=== PATIENT | male | born 1975 | race Caucasian/White ===

== ENCOUNTER → 2024-04-14 | Outpatient (CLI) | payer BC, SELFPAY ==
[2024-04-14 12:41] LABS: Absolute Lymphocyte Count 1.69 X10^3/uL (0.83-4.51); Absolute Neutrophil Count 4.6 X10^3/uL (2.0-7.7); Basophil# 0.04 X10^3/uL; Basophil% 0.6 % (0-1); Eosinophils% 1.4 % (0-5); Hematocrit 45.9 % (40-54); Hemoglobin 15.9 g/dL (13.0-16.5); Lymphocyte # 1.69 X10^3/ul (0.83-4.51); Lymphocyte % 24.2 % (19-41); Mean Corp Hgb Conc 34.6 g/dL (32-36); Mean Corpuscular Hgb 32.3 pg (27.0-32.0); Mean Corpuscular Volume 93.1 fL (80-94); Monocyte# 0.56 X10^3/uL; NRBC Flagged by Analyzer 0 % (0-5); Neutrophil # 4.57 X10^3/uL (2.7-7.7); Neutrophil % 65.5 % (47-70); Platelet Count 252 K/mm3 (150-450); RBC Distribution Width CV 11.9 % (11.6-14.6); RBC Distribution Width SD 41.1 fl (35.1-43.9); Red Blood Count 4.93 M/mm3 (4.6-6.2)
[2024-04-14 13:11] LABS: Vitamin B12 472 pg/mL (211-911); Vitamin D,25 Hydroxy 39.1 ng/mL
[2024-04-14 13:26] LABS: ALB/GLOB Ratio 1.5 RATIO (0.9-2.4); AST(SGOT) 18 U/L (15-37); Alanine Aminotransfer ALT/SGPT 38 U/L (16-61); Albumin, Serum 4.5 g/dL (3.2-5.0); Alkaline Phosphatase 67 U/L (45-117); Anion Gap 7 (5-15); BUN 10 mg/dL (7-18); BUN/Creat Ratio 10.3 RATIO (10-20); Calcium,Total 9.2 mg/dL (8.5-10.1); Chloride 107 mmol/L (98-107); Cholesterol 170 mg/dL (200); Creatinine, Serum 0.97 mg/dL (0.70-1.30); EST Glomerular Filtration Rate 87 mL/min (>60); Est Glom Filt Rate - Afr Amer 105 mL/min (>60); Globulin 3.1 g/dL (2.2-4.2); Glucose 99 mg/dL (74-106); High Density Lipoprotein 50 mg/dL; PSA,Total - Annual Screen 2.68 ng/mL (0.00-4.00); Potassium 4.1 mmol/L (3.5-5.1); Protein, Total 7.6 g/dL (6.4-8.2); Sodium Level 139 mmol/L (136-145); Thyroid Stim Hormone (TSH) 1.38 uIU/mL (0.358-3.74); Triglycerides 170 mg/dL; Very Low Density Lipoprotein 34 mg/dL (5-40)
== END | disposition home or self-care (01) ==
LOC: BIMLAB 10:26
PROVIDERS: PCP Internal Medicine; Referring Provider Internal Medicine; Visit Provider Internal Medicine
DX: R03.0 Elevated blood-pressure reading, without diagnosis of hypertension (principal); R20.0 Anesthesia of skin; R20.2 Paresthesia of skin; Z13.6 Encounter for screening for cardiovascular disorders; Z12.5 Encounter for screening for malignant neoplasm of prostate
CPT/HCPCS: 36415; 80053; 80061; 82306; 82607; 84153; 84443; 85025; G0103

== ENCOUNTER 2025-01-05 08:02 | Day surgery (SDC) | payer BC, SELFPAY ==
[2025-01-05] VITALS (9 sets, daily range): BP systolic 120–165; BP diastolic 86–92; PULSE 59–81; RESP 16–18; TEMP 36.8–37.3; O2SAT 93–100; BMI 27.9
--- NOTE | 2025-01-05 | COLBX_PTH ---
PATIENT: DEL WIGGINS LOC: EN U#:[id number] AGE/SX: 49/M ROOM: RE01/05/[address]: Dr. Mak Lombardi MD : 1975 BED: DIS: 01/05/2025 SPEC #: [id number] RECD: 01/05/25 12:30 STATUS: JOSS REQ #: [id number] KEYSHA: 01/05/25 00:[address]: Mak Lombardi DEPT: SURGICAL PATHOLOGY RECD BY: Terry Clarke ENTERED: 01/05/25 12:31 SP TYPE: COLON BX OTHR DR: Dr. Marika Josue MD Tissues: Cecum, NOS Procedures: Surgery Specimen Level IV HEADER OPERATION: Colonoscopy with biopsy PRE-OP DIAGNOSIS: Encounter for screening for malignant neoplasm of colon TISSUE SUBMITTED: Cecal polyp MICROSCOPIC DIAGNOSIS COLON, CECAL POLYP, BIOPSY: * Tubular adenenoma. MICROSCOPIC DESCRIPTION Slides are reviewed. GROSS DESCRIPTION Received in fixative is one container labeled with the patient's name and designated Cecal polyp. The specimen consists of one irregular fragment of light rojas soft tissue that measures 0.5 x 0.3 x 0.2 cm. The specimen is totally submitted in one cassette. 01/05/2025 CPT:37264
--- NOTE | 2025-01-05 08:49 | PRE.ANES_ITS ---
ASA Classification* ASA Classification ASA Classification: 2 Assessment & Plan Anesthesia* Anesthesia Assessment Anesthesia Assessment: Discussed sedation and/or anesthesia options, risks, benefits, and alternatives with patient/parents/legal guardian/POA. Questions invited. The patient/parents/legal guardian/POA seems to understand and agrees to proceed with anesthesia plan. Reviewed the physical assessment, medical history, allergy history and patient home medications list prior to surgery/procedure/anesthetic and documented any changes. Performed airway and anesthesia risk assessments. Anesthesia Type Anesthesia Type: General History Source History Obtained from:: Patient Anesthesia Focused Assessment* Temperature: 99.2 F Pulse Rate: 81 Blood Pressure: 165/92 Respiratory Rate: 16 Pulse Ox: 100 Oxygen Delivery Method: Room Air Airway Assessment Mouth opens: >3 cm Mallampati Score: II Teeth Condition: Chipped/Broken and Missing Neck Range of motion (ROM): Full ROM Comment: poor dentition Focused Labs Anesthesia Preop lab: CBC WBC 7.0 K/mm3 (4.4-11.0) 04/14/24 10:04/14/24 RBC 4.93 M/mm3 (4.6-6.2) 04/14/24 10:04/14/24 Hgb 15.9 g/dL (13.0-16.5) 04/14/24 10:04/14/24 Hct 45.9 % (40-54) 04/14/24 10:04/14/24 Plt Count 252 K/mm3 (150-450) 04/14/24 10:04/14/24 CHEMISTRY Potassium 4.1 mmol/L (3.5-5.1) 04/14/24 10:04/14/24 Sodium 139 mmol/L (136-145) 04/14/24 10:04/14/24 BUN 10 mg/dL (7-18) 04/14/24 10:04/14/24 Creatinine 0.97 mg/dL (0.70-1.30) 04/14/24 10:04/14/24 Glucose 99 mg/dL (74-106) 04/14/24 10:04/14/24 TSH 1.38 uIU/mL (0.358-3.74) 04/14/24 10: COAG Pre-Assessment Diagnosis/Proposed Procedure Planned Operative Procedure(s): Colonoscopy - Open Access Anesthesia History 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 When Was Last Pacemaker Check QUESTION #4 FULL TEXT: You/Your Family Experience fever (hyperthermia) with Anesthesia Any additional information?: No Last Oral Intake Last Oral intake: Last Oral Intake NPO since 06:00 01/05/25 08:25 Meds taken in AM with sips of Yes 01/05/25 08:25 water? 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 supervisor Female No 01/01/25 10:43 HX of Motion Sickness No 01/01/25 10:43 HX of N/V After Surgery No 01/01/25 10:43 Non-Smoker Yes 01/01/25 10:43 Duration of Surgery greater No 01/01/25 10:43 than 60 minutes Number of Risk Factors 1 01/01/25 10:43 PONV Score Low Risk 01/01/25 10:43 Any additional information?: No Height & Weight Height & Weight: Anesthesia: Height & Weight Height 5 ft 11 in 01/05/25 08:25 Weight: 91 kg 01/05/25 08:25 Body Mass Index (BMI) 27.9 01/05/25 08:25 Respiratory Assessment Respiratory Assessment - track laying supervisor: Respiratory Tract Infection Hx - track laying supervisor Hx Respiratory Tract Infection No 01/01/25 10:43 Any additional information?: No STOP Sleep Apnea STOP Sleep Apnea - track laying supervisor: STOP Sleep Apnea - track laying supervisor Hx Hypertension Yes: CONTROLLED ON MED 01/01/25 10:43 Hx Sleep Apnea No 01/01/25 10:43 CPAP BIPAP Do you snore loudly (louder No 01/01/25 10:43 than talking or can be heard Do you often feel tired/ No 01/01/25 10:43 fatigued/ sleepy during daytime? Has anyone observed you stop No 01/01/25 10:43 breathing during sleep? STOP Results Negative 01/01/25 10:43 QUESTION #5 FULL TEXT : Do you snore loudly (louder than talking or can be heard through closed doors)? 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 Specify any problems Hx of Preganancy in last 3 N/A 01/01/25 10:43 Months Nurse Filling Out Transfusion VCHRISTIN 01/01/25 10:43 & Questions: Date: 01/01/25 01/01/25 10:43 Time: 10:44 01/01/25 10:43 Patient unable to answer at this time (ie. confused, unrespo Any additional information?: No /Reproduction History /Reproductive History - track laying supervisor: /Reproductive Hx- track laying supervisor Hx Now Gestational Age (in weeks): EDC: Hx Hx Para Hx Section SAB Any additional information?: No PFSH Medical History Alcohol use Arthritis Back pain Gastric reflux Smoker Hypertension Acute bacterial prostatitis Kidney stones GI problem Bone fracture Home Medications ?Medication ?Instructions ?Recorded ?Last Taken ?Type omeprazole 20 mg capsule,delayed 20 mg PO QDAY 5 01/04/25 History release amlodipine 5 mg tablet 5 mg PO QDAY #90 tabs 01/05/25 Rx Allergy/AdvReac Type Severity Reaction Status Date / Time lisinopril AdvReac Ears Verified 01/05/25 08:21 Ringing, Hearing disturbance Family History Father Alcohol abuse Arthritis Hypertension Mother Alcohol abuse Sister Cancer, Onset Age: 48 brain tumor Surgical History (Updated 01/01/25 @ 10:43 by Laury Lopez) Hx of colonoscopy Social History adopted: No household members: significant other current occupational status: 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 Physical Exam Const alert and oriented x3 Resp normal respiratory effort, normal air movement and clear to auscultation bilaterally Cardio regular rate, regular rhythm, no murmurs and diaphoretic
--- NOTE | 2025-01-05 09:16 | PCM.HP.STD ---
[facility] - General General Date of Admission: 01/05/25 Date of Service: 01/05/25 Chief Complaint: Colonoscopy HPI Narrative DEL WIGGINS, is a 49 M who presents for screening colonoscopy. Last colonoscopy was about 6 years ago. At that time he was having some diarrhea and was diagnosed with microscopic colitis. He was placed on steroids and the symptoms resolved. He denies any recent symptoms or problems. No family history of colon polyps or colon cancer. [facility] Medical History Alcohol use Arthritis Back pain Gastric reflux Smoker Hypertension Acute bacterial prostatitis Kidney stones GI problem Bone fracture Home Medications ?Medication ?Instructions ?Recorded ?Last Taken ?Type omeprazole 20 mg capsule,delayed 20 mg PO QDAY 11/19/24 01/04/25 History release amlodipine 5 mg tablet 5 mg PO QDAY #90 tabs 01/04/25 01/05/25 Rx Allergy/AdvReac Type Severity Reaction Status Date / Time lisinopril AdvReac Ears Verified 01/05/25 08:21 Ringing, Hearing disturbance Family History Father Alcohol abuse Arthritis Hypertension Mother Alcohol abuse Sister Cancer, Onset Age: 48 brain tumor Surgical History Hx of colonoscopy Social History adopted: No household members: significant other current occupational status: 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 history of recent travel: No Smoking Status: Current every day smoker tobacco type: cigarettes and smokeless tobacco Smokeless tobacco user: chewing tobacco quit status: considering quitting alcohol intake: current alcohol intake frequency: 3 or more drinks per day details: 2-6 beer daily substance use type: does not use what type of physical activity do you participate in: none seatbelt use: always do you feel safe at home: Yes Vital Signs Vital Signs Vital Signs: 01/05/25 08:25 01/05/25 08:25 01/05/25 08:53 Temperature 99.2 F H 99.2 F H Temperature Source Temporal Pulse Rate 81 81 Respiratory Rate 16 16 Respiratory Pattern Normal Blood Pressure 165/92 H 165/92 H Blood Pressure Mean 116 Blood Pressure Source Monitor Blood Pressure Position Semi-Fowlers Blood Pressure Location Right Arm Pulse Ox 100 100 Oxygen Delivery Method Room Air Room Air Weight Weight: 200 lb 9.93 oz Body Mass Index (BMI) 27.9 Physical Exam Const alert, oriented x3 and no apparent distress Assessment & Plan Assessment/Plan (1) Encounter for screening for malignant neoplasm of colon: PLAN: Plan The patient is a 49-year-old male in need of a screening colonoscopy. His last colonoscopy was about 6 years ago. We discussed the details of the planned procedure and he wishes to proceed. This will begin momentarily Charges/Coding Visit Charges Inpatient E&M: 05322 Init Hosp L1
--- NOTE | 2025-01-05 10:02 | OP.COLON_ITS ---
Patient Name: Sonny Souza Procedure Date: 01/05/2025 9:09 AM Date of : 1975 Age: 49 Procedure: Colonoscopy Indications: Screening for colorectal malignant neoplasm Providers: Mak Lombardi MD Medicines: Monitored Anesthesia Care Patient Profile: Refer to note in patient chart for documentation of history and physical. Last Colonoscopy: 5 years ago. Complications: No immediate complications. Estimated blood loss: Minimal. Procedure: Pre-Anesthesia Assessment: - Prior to the procedure, a History and Physical was performed, and patient medications and allergies were reviewed. The patient's tolerance of previous anesthesia was also reviewed. The risks and benefits of the procedure and the sedation options and risks were discussed with the patient. All questions were answered, and informed consent was obtained. Prior Anticoagulants: The patient has taken no anticoagulant or antiplatelet agents. ASA Grade Assessment: II - A patient with mild systemic disease. After reviewing the risks and benefits, the patient was deemed in satisfactory condition to undergo the procedure. After I obtained informed consent, the scope was passed under direct vision. Throughout the procedure, the patient's blood pressure, pulse, and oxygen saturations were monitored continuously. The colonoscope was introduced through the anus and advanced to the cecum, identified by appendiceal orifice and ileocecal valve. The ileocecal valve, appendiceal orifice, and rectum were photographed. The entire colon was examined. The colonoscopy was somewhat difficult due to significant looping. Successful completion of the procedure was aided by changing the patient to a supine position. The patient tolerated the procedure well. The quality of the bowel preparation was fair. Moderate Sedation: See the other procedure note for documentation of moderate sedation with intraservice time. Scope In: 9:28:40 AM Scope Withdrawal Time 0 hours 7 minutes 30 seconds Scope Out: 9:55:56 AM Total Procedure Duration Time 0 hours 27 minutes 16 seconds Findings: The perianal and digital rectal examinations were normal. Internal hemorrhoids were found during endoscopy. The hemorrhoids were mild. The exam was otherwise without abnormality. A 3 mm polyp was found in the cecum. The polyp was semi-sessile. The polyp was removed with a cold biopsy forceps. Resection and retrieval were complete. Verification of patient identification for the specimen was done by the nurse using the patient's name, date and medical record number. Estimated blood loss was minimal. Impression: - Preparation of the colon was fair. - Internal hemorrhoids. - The examination was otherwise normal. - One 3 mm polyp in the cecum, removed with a cold biopsy forceps. Resected and retrieved. Recommendation: - Discharge patient to home (ambulatory). - High fiber diet. - Await pathology results. - Repeat colonoscopy in 5 years for surveillance based on pathology results. - Return to my office PRN. - Continue present medications. Procedure Code(s): --- Professional --- 98033, Colonoscopy, flexible; with biopsy, single or multiple Diagnosis Code(s): --- Professional --- Z12.11, Encounter for screening for malignant neoplasm of colon D12.0, Benign neoplasm of cecum K64.8, Other hemorrhoids CPT copyright 2021 [employer]. All rights reserved. The codes documented in this report are preliminary and upon digital marketing specialist review may be revised to meet current compliance requirements. Mak Lombardi MD 01/05/2025 10:02:16 AM This report has been signed electronically. Number of Addenda: 0 Note Initiated On: 01/05/2025 9:09 AM
--- NOTE | 2025-01-05 10:03 | OP.CCLET_ITS ---
01/05/2025 Marika Josue Md Re : Colonoscopy procedure for Sonny Souza Dear Liat This procedure was performed on Sunday, January 05, 2025. My impressions and recommendations are as follows: Impressions : - Preparation of the colon was fair. - Internal hemorrhoids. - The examination was otherwise normal. - One 3 mm polyp in the cecum, removed with a cold biopsy forceps. Resected and retrieved. Recommendations : - Discharge patient to home (ambulatory). - High fiber diet. - Await pathology results. - Repeat colonoscopy in 5 years for surveillance based on pathology results. - Return to my office PRN. - Continue present medications. My findings are described in the full procedure note, which is enclosed. If I can be of further assistance, please feel free to contact me at . Sincerely, Mak Lombardi MD 01/05/2025 10:02:16 AM This report has been signed electronically.
--- NOTE | 2025-01-05 10:05 | PCM.POST.ANE ---
Anesthesia: Postop Eval I Current Vital Signs Temperature: 98.2 F Pulse Rate: 63 Blood Pressure: 131/89 Respiratory Rate: 16 Pulse Ox: 93 Oxygen Delivery Method: Room Air Assessment Airway patent: Yes Spontaneous unlabored respirations: Yes Mental status: Asleep nausea: No Vomiting: No Anesthesia Complication: No Fluid Hydration Crystalloid volume administer (ml): 90 Total IV fluid infused: 90 Progress Note Anesthesia document: Postop Eval 1 completed: Yes
--- NOTE | 2025-01-05 10:10 | PCM.POSTANE2 ---
Anesthesia Postop Eval I Sum Postop Eval Completion status Anesthesia document: Postop Eval 1 completed: Yes Anesthesia Postop Eval I Summary Anesthesia Postop Eval I Summary: Anesthesia Postop Eval I: Assessment Summary Airway patent Yes 01/05/25 10:06 [email or web address] Spontaneous unlabored Yes 01/05/25 10:06 [email or web address] respirations Mental status Asleep 01/05/25 10:06 [email or web address] nausea No 01/05/25 10:06 [email or web address] Vomiting No 01/05/25 10:06 [email or web address] Anesthesia Postop Eval I: Fluid Summary Crystalloid volume administer 90 01/05/25 10:06 [email or web address] (ml) Colloids volume administered ( ml) Blood Product volume administered (ml) Total IV fluid infused 90 01/05/25 10:06 [email or web address] Anesthesia Postop Eval I: Summary Notes Anesthesia Complication No 01/05/25 10:06 [email or web address] Anesthesia Complication Comment: Post-operative progress note Anesthesia: Postop Eval II Evaluation Mental status: Awake and Calm Pain Level: 0 nausea: No Vomiting: No Complications Anesthesia Complication: No
== END 2025-01-05 10:39 | disposition home or self-care (01) ==
LOC: EN 08:05 → AC 08:06
PROVIDERS: PCP Internal Medicine; Referring Provider Internal Medicine; Visit Provider Surgery
PROC: 0DJD8ZZ Inspection of Lower Intestinal Tract, Via Natural or Artificial Opening Endoscopic (ICD-10-PCS; CPT 45378; principal; 2025-01-05 08:55)
DX: Z12.11 Encounter for screening for malignant neoplasm of colon (principal); K64.8 Other hemorrhoids; D12.0 Benign neoplasm of cecum; F17.210 Nicotine dependence, cigarettes, uncomplicated; I10 Essential (primary) hypertension; K21.9 Gastro-esophageal reflux disease without esophagitis; Z79.899 Other long term (current) drug therapy; F17.220 Nicotine dependence, chewing tobacco, uncomplicated
CPT/HCPCS: 45380; 88305; A4216; J2405

== ENCOUNTER → 2025-05-06 | Outpatient (CLI) | payer BC, SELFPAY ==
[2025-05-06 12:05] LABS: Hematocrit 42.4 % (40-54); Hemoglobin 15.0 g/dL (13.0-16.5); Immature Granulocytes Count 0.020 X10^3/uL (0.0-0.0); Mean Corp Hgb Conc 35.4 g/dL (32-36); Mean Corpuscular Volume 90.2 fL (80-94); Mean Platelet Vol. 9.5 fl (6.2-12.0); NRBC Flagged by Analyzer 0 % (0-5); POSITIVE MORPHOLOGY YES; Platelet Count 272 K/mm3 (150-450); RBC Distribution Width CV 11.4 % (11.6-14.6); RBC Distribution Width SD 37.9 fl (35.1-43.9); Red Blood Count 4.70 M/mm3 (4.6-6.2); White Blood Count 6.5 K/mm3 (4.4-11.0)
[2025-05-06 12:21] LABS: Differential Indicated SCAN CRITERIA MET
[2025-05-06 12:42] LABS: AST(SGOT) 19 U/L (<=37); Alanine Aminotransfer ALT/SGPT 23 U/L (<=46); Albumin, Serum 4.7 g/dL (3.5-5.0); Alkaline Phosphatase 74 U/L (40-129); Anion Gap 11 (5-15); BUN 10 mg/dL (4-19); BUN/Creat Ratio 9.8 RATIO (10-20); Calcium,Total 9.4 mg/dL (7.6-11.0); Carbon Dioxide 27.1 mmol/L (21.0-32.0); Chloride 104 mmol/L (98-108); Cholesterol 140 mg/dL (<=200); Globulin 2.5 g/dL (2.2-4.2); Glucose 93 mg/dL (70-99); Low Density Lipoprotein Calc. 79 mg/dL; Potassium 3.8 mmol/L (3.3-5.1); Triglycerides 86 mg/dL; Very Low Density Lipoprotein 17 mg/dL (5-40); cholesterol:hdl ratio screen 3.19
[2025-05-06 12:59] LABS: Differential Comment SCANNED
== END | disposition home or self-care (01) ==
LOC: BIMLAB 09:10
PROVIDERS: PCP Internal Medicine; Visit Provider Internal Medicine
DX: Z13.6 Encounter for screening for cardiovascular disorders (principal); I10 Essential (primary) hypertension; K21.9 Gastro-esophageal reflux disease without esophagitis
CPT/HCPCS: 36415; 80053; 80061; 85025

== ENCOUNTER → 2025-06-02 | Outpatient (CLI) | payer BC, SELFPAY ==
--- OUTSIDE RECORDS SUMMARY | 2025-06-02 06:44 | XMS RPT_ITS | CCD ---
Author Organization [facility] Care Team Providers Care Social Welfare Research Worker Name Role Phone [facility] Unavailable Unavailable [facility] Unavailable Unavailable NO REFERRING DR Unavailable Unavailable Liat CRUZ, Dr. Hairston Primary Care Provider [phone] Anjelica Lo Attending Provider Unavailable Lait CRUZ, Dr. Hairston Attending Provider Dr. Marika Josue MD Referring Provider Maria C CRUZ, Dr. Mak Veras Attending Provider Maria C CRUZ, Dr. Mak Veras Other Provider [phone] Liat CRUZ, Dr. Hairston Primary Care Provider [phone] Liat CRUZ, Dr. Hairston Attending Provider Liat CRUZ, Dr. Hairston Referring Provider Mak Lombardi Attending Unavailable Liat, Marika Referring Unavailable [place], Marika Primary Care Unavailable [place], Marika Attending Unavailable Liat, Marika Primary Care Unavailable [place], Marika Attending Unavailable Liat, Marika Referring Unavailable [place], Marika Primary Care Unavailable [place], Marika Attending Unavailable [place], Marika Referring Unavailable Liat, Marika Primary Care Unavailable Liat, Marika Attending Unavailable Liat, Marika Referring Unavailable Liat, Marika Primary Care Unavailable Anjelica Lo Attending Unavailable [place], Marika Primary Care Unavailable Liat, Marika Referring Unavailable [place], Marika Primary Care Unavailable Mak Lombardi Consulting Unavailable Mak Lombardi Attending Unavailable Liat, Marika Attending Unavailable Liat, Marika Referring Unavailable Marika Josue Primary Care Unavailable Allergies Allergy Classification Reported Allergen(s) Allergy Type Date of Onset Reaction(s) Facility (3 sources) Lisinopril Drug Allergy 5 Ears Ringing, Hearing disturbance [facility] (1 source) Lisinopril Drug Allergy 5 [facility] Repository Medications Completed/Discontinued Medications Medication Drug Class(es) Dates Sig (Normalized) Sig (Original) amLODIPine 5 mg oral tablet (8 sources) Dihydropyridine Calcium Channel Adiel Start: 12-08-19 End: 03-23-20 take 1 tablet by mouth once daily Amlodipine 5 mg tablet Discontinued 5 mg PO daily 90 0 January 04, 2025 10:44am March 23, 2025 9:11am amoxicillin 875 mg / clavulanate 125 mg oral tablet (3 sources) Penicillin-class Antibacterial Start: 02-13-20 End: 02-23-20 Amoxicillin-Pot Clavulanate 875-125 mg tablet Discontinued 1 {tbl} PO Q12H 20 10 February 13, 2024 12:00am February 22, 2024 12:00am February 23, 2024 12:05am Acute sinusitis, unspecified lisinopril 5 mg oral tablet (3 sources) Angiotensin Converting Enzyme Inhibitor Start: 04-27-20 End: 11-19-19 take 1 tablet by mouth once daily Lisinopril 5 mg tablet Discontinued 5 mg PO DAILY 30 1 April 27, 2024 12:00am November 19, 2024 11:52am methylPREDNISolone 4 mg oral tablet (3 sources) Corticosteroid Start: 02-13-20 End: 02-19-20 24 take 1 tablet by mouth once Methylprednisolone (Medrol (Carlo)) 4 mg tablets,dose pack Discontinued 4 mg PO per package directions 21 6 0 February 13, 2024 12:00am February 18, 2024 12:00am February 19, 2024 12:05am omeprazole 20 mg delayed release oral capsule (3 sources) Proton Pump Inhibitor Start: 11-19-19 End: 05-06-20 take 1 capsule by mouth once daily Omeprazole 20 mg capsule,delayed release(DR/EC) Discontinued 20 mg PO daily November 19, 2024 1:00am May 06, 2025 8:54am Problems Active Problems Problem Classification Problem Date Documented Date Episodic/Chronic Esophageal disorders (4 sources) Gastroesophageal reflux disease; Translations: [Gastro-esophageal reflux disease without esophagitis] Onset: 05-06-2025 12-08-2024 Chronic Essential hypertension (8 sources) Hypertensive disorder; Translations: [Essential (primary) hypertension] Onset: 05-06-2025 12-22-2024 Chronic Immunizations and screening for infectious disease (1 source) Immunization due; Translations: [Encounter for immunization] 12-08-2024 Episodic Nonspecific chest pain (1 source) Chest pain; Translations: [Chest pain, unspecified] 12-08-2024 Episodic Other connective tissue disease (1 source) Disease suspected; Translations: [Other symptoms and signs involving the nervous system] 12-08-2024 Episodic Other connective tissue disease (2 sources) Suspected respiratory disease; Translations: [Other symptoms and signs involving the nervous system] 05-06-2025 Episodic Other nervous system disorders (2 sources) Numbness and tingling sensation of skin; Translations: [Anesthesia of skin] 05-06-2025 Episodic Other nervous system disorders (2 sources) Anesthesia of skin; Translations: [Anesthesia of skin] Onset: 05-06-2025 Episodic Other nervous system disorders (2 sources) Paresthesia of skin; Translations: [Paresthesia of skin] Onset: 05-06-2025 Episodic Other screening for suspected conditions (not mental disorders or infectious disease) (10 sources) Patient encounter status; Translations: [Encounter for screening for malignant neoplasm of colon] Onset: 01-12-2025 11-19-2024 Episodic Other upper respiratory infections (3 sources) Acute sinusitis; Translations: [Acute sinusitis, unspecified] 04-13-2024 Episodic Screening and history of mental health and substance abuse codes (1 source) Ex-smoker; Translations: [Personal history of nicotine dependence] 05-06-2025 Episodic Spondylosis; intervertebral disc disorders; other back problems (7 sources) Back problem; Translations: [Dorsopathy, unspecified] Onset: 05-06-2025 04-14-2024 Episodic Substance-related disorders (3 sources) Cigarette smoker ; Translations: [Nicotine dependence, cigarettes, uncomplicated] 12-08-2024 Chronic Past or Other Problems Problem Classification Problem Date Documented Da te Episodic/Chronic Other gastrointestinal disorders (3 sources) Diarrhea, unspecified; Translations: [DIARRHEA UNSPECIFIED] Onset: 09-11-2016 Episodic Results Test Name Value Interpretation Reference Range Facility Absolute lymphocyte countOrd ered By: Marika Josue on 05-06-2025 Lymphocytes Auto (Unsp spec) [#/Vol] 2.32 10*3/uL 0.83-4.51 [facility] Absolute neutrophil countOrd ered By: Marika Josue on 05-06-2025 Neutrophils (Bld) [#/Vol] 3.5 10*3/uL 2.0-7.7 [facility] Anion gap in Serum or Plasma Ordered By: Marika Josue on 05-06-2025 Anion gap [Moles/Vol] 11 mmol/L - [facility] Automated lymphocyte count a s percentage of total leukocytesOrdered By: Marika Josue on 05-06-2025 Lymphocytes/100 WBC Auto (Unsp spec) 35.8 % - [facility] BUN/creatinine ratioOrdered By: Marika Josue on 05-06-2025 Urea nitrogen/Creatinine [Mass ratio] 9.8 mg/mg Low 10- [facility] Basophil percentageOrdered B y: Mariak Josue on 05-06-2025 Basophils/100 WBC (Bld) 0.6 % 0- [facility] Bilirubin, totalOrdered By: Marika Josue on 05-06-2025 Bilirubin [Mass/Vol] 0.38 mg/dL 0.00-1.30 [facility] Blood manual differential co mment interpretation (narrative result)Ordered By: Marika Josue on 05-06-2025 Manual differential comment Jed (Bld) [Interp] SCANNED [facility] Comment on above: AUTO DIFF OK CBC W/Diff, Automatedon 04-27 SMEAR COMMENT SCANNED Normal [facility] Comment on above: Result Comment: AUTO DIFF OK Performed By: #### L 100.0100, L500.4100, L500.4050 #### [facility] [address] [place], [place] [address]tiffanie. [place], [place], [id number] Calculated very low density lipoprotein (VLDL) cholesterol measurementOrdered By: Marika Josue on 05-06-2025 Calculated very low density lipoprotein (VLDL) cholesterol measurement 17 mg/dL 5-40 [facility] Carbon dioxide, total [Moles /volume] in Central venous bloodOrdered By: Marika Josue on 05-06-2025 CO2 [Moles/Vol] 27.1 mmol/L 21.0-32.0 [facility] Chloride assayOrdered By: [place] Josue on 05-06-2025 Chloride [Moles/Vol] 104 mmol/L 98-108 [facility] Comprehensive Metabolic Prof ilon 05-06-2025 Albumin [Mass/Vol] 4.7 g/dL Normal 3.5-5.0 [facility] Comment on above: Performed By: #### L 100.0100, L500.4100, L500.4050 #### [facility] [address] [place], [address] Albumin/Globulin [Mass ratio] 1.9 {ratio} Normal 0.9-2.4 [facility] Comment on above: Performed By: #### L 100.0100, L500.4100, L500.4050 #### [facility] [address] [place], [address] ALK PHOS 74 U/L Normal 40-129 [facility] Comment on above: Performed By: #### L 100.0100, L500.4100, L500.4050 #### [facility] [address] [place], [address] ALT [Catalytic activity/Vol] 23 U/L Normal <=46 [facility] Comment on above: Performed By: #### L 100.0100, L500.4100, L500.4050 #### [facility] [address] [place], [address] AST [Catalytic activity/Vol] 19 U/L Normal <=37 [facility] Comment on above: Performed By: #### L 100.0100, L500.4100, L500.4050 #### [facility] [address] [place], [address] Bilirubin [Mass/Vol] 0.38 mg/dL Normal 0.00-1.30 [facility] Comment on above: Performed By: #### L 100.0100, L500.4100, L500.4050 #### [facility] [address] [place], [address] BUN/CRE 9.8 RATIO Low 10-20 [facility] Comment on above: Performed By: #### L 100.0100, L500.4100, L500.4050 #### [facility] [address] [place], [address] Calcium [Mass/Vol] 9.4 mg/dL Normal 7.6-11.0 [facility] Comment on above: Performed By: #### L 100.0100, L500.4100, L500.4050 #### [facility] [address] [place], [address] Chloride [Moles/Vol] 104 mmol/L Normal 98-108 [facility] Comment on above: Performed By: #### L 100.0100, L500.4100, L500.4050 #### [facility] [address] [place], [address] CO2 [Moles/Vol] 27.1 mmol/L Normal 21.0-32.0 [facility] Comment on above: Performed By: #### L 100.0100, L500.4100, L500.4050 #### [facility] [address] [place], [address] Creatinine [Mass/Vol] 1.03 mg/dL Normal 0.70-1.20 [facility] Comment on above: Performed By: #### L 100.0100, L500.4100, L500.4050 #### [facility] [address] [place], [address] GAP 11 Normal 5-15 [facility] Comment on above: Performed By: #### L 100.0100, L500.4100, L500.4050 #### [facility] [address] [place], [address] GFR/1.73 sq M.predicted among non-blacks MDRD (S/P/Bld) [Vol rate/Area] 88 mL/min/{1.73_m2} Normal >60 [facility] Comment on above: Result Comment: mL/m in/1.73m2 CKD-EPI Creatinine Equation (2020) Performed By: #### L 100.0100, L500.4100, L500.4050 #### [facility] [address] [place], [address] Globulin (S) [Mass/Vol] 2.5 g/dL Normal 2.2-4.2 [facility] Comment on above: Performed By: #### L 100.0100, L500.4100, L500.4050 #### [facility] [address] [place], [address] Glucose [Mass/Vol] 93 mg/dL Normal 70-99 [facility] Comment on above: Performed By: #### L 100.0100, L500.4100, L500.4050 #### [facility] [address] [place], [address] Potassium [Moles/Vol] 3.8 mmol/L Normal 3.3-5.1 [facility] Comment on above: Performed By: #### L 100.0100, L500.4100, L500.4050 #### [facility] [address] [place], [address] Sodium [Moles/Vol] 142 mmol/L Normal 133-145 [facility] Comment on above: Performed By: #### L 100.0100, L500.4100, L500.4050 #### [facility] [address] [place], [address] T PROT 7.3 g/dL Normal 5.9-8.4 [facility] Comment on above: Performed By: #### L 100.0100, L500.4100, L500.4050 #### [facility] [address] [place], [address] Urea nitrogen [Mass/Vol] 10 mg/dL Normal 4-19 [facility] Comment on above: Performed By: #### L 100.0100, L500.4100, L500.4050 #### [facility] [address] [place], [address] Eosinophil percentageOrdered By: Marika Josue on 05-06-2025 Eosinophils/100 WBC (Bld) 2.3 % 0-5 [facility] Erythrocyte distribution wid th ratioOrdered By: Marika Josue on 05-06-2025 Erythrocyte distribution width (RBC) [Ratio] 11.4 % Low 11.6-14.6 [facility] Erythrocyte distribution wid th standard deviationOrdered By: Marika Josue on 05-06-2025 Erythrocyte distribution width (RBC) [Ratio] 37.9 fl 35.1-43.9 [facility] Glomerular filtration rate ( GFR) estimation/1.73 sq m using serum, plasma, or whole bOrdered By: Marika Josue on 05-06-2025 GFR/1.73 sq M.predicted among non-blacks MDRD (S/P/Bld) [Vol rate/Area] 88 mL/min/{1.73_m2} >60 [facility] Comment on above: mL/min/1.73m2 CKD-EP I Creatinine Equation (2020) Hematocrit Auto (Bld) [Volum e fraction]Ordered By: Marika Josue on 05-06-2025 Hematocrit (Bld) [Volume fraction] 42.4 % 40-54 [facility] Hemoglobin measurementOrdere d By: Marika Josue on 05-06-2025 Hemoglobin (Bld) [Mass/Vol] 15.0 g/dL 13.0-16.5 [facility] Immature granulocytes/100 WB C Auto (Bld)Ordered By: Marika Josue on 05-06-2025 Immature granulocytes/100 WBC (Bld) 0.300 % 0.0-0.9 [facility] Comment on above: IG% - Immature Granu locytes (promyelocytes, myelocytes and metamyelocytes) > 1% indicates that a LEFT SHIFT is Present. LDL calc ser/plasOrdered By: Marika Josue on 05-06-2025 Cholesterol in LDL [Mass/Vol] 79 mg/dL [facility] Comment on above: Zrydymltgb=198-965 m g/dL & Higher Bqhn=905 mg/dL or greater Laboratory - Chemistry and C hemistry - challengeOrdered By: Marika Josue on 05-06-2025 AST [Catalytic activity/Vol] 19 U/L <38 [facility] Lipid Profileon 05-06-2025 CHOL:HDL 3.19 Normal [facility] Comment on above: Performed By: #### L 100.0100, L500.4100, L500.4050 ####[facility] [address] [facility] [place], [place], [id number](136) Cholesterol [Mass/Vol] 140 mg/dL Normal <=200 [facility] Comment on above: Result Comment: Chol esterol level, Desirable <200 mg/dL Borderline high cholesterol 200-239 mg/dL High cholesterol >=240 mg/dL Recommendations of the NCEP Adult Treatment Panel for the following risk-cutoff thresholds for the [place] population. Performed By: #### L 100.0100, L500.4100, L500.4050 ####[facility] [address] [facility] [place], [address] Cholesterol in HDL [Mass/Vol] 44 mg/dL Normal [facility] Comment on above: Result Comment: Leora onal Cholesterol Education Program (NCEP) guidelines: <40 mg/dL: Low HDL-cholesterol (major risk factor for CHD) >= 60 mg/dL: High HDL-cholesterol (negative risk factor for CHD) HDL-cholesterol is affected by a number of factors, e.g. smoking, exercise, hormones, sex and age. Performed By: #### L 100.0100, L500.4100, L500.4050 ####[facility] [address] [place], [address] Cholesterol in LDL [Mass/Vol] 79 mg/dL Normal [facility] Comment on above: Result Comment: Bord jmcltk=139-253 mg/dL Higher Wkbr=272 mg/dL or greater Performed By: #### L 100.0100, L500.4100, L500.4050 ####[facility] [address] [place], [address] Cholesterol in VLDL [Mass/Vol] 17 mg/dL Normal 5-40 [facility] Comment on above: Performed By: #### L 100.0100, L500.4100, L500.4050 ####[facility] [address] [place], [address] Triglyceride [Mass/Vol] 86 mg/dL Normal [facility] Comment on above: Result Comment: The drugs N-Acetylcysteine and Metamizole may falsely depress this assay. Normal range: <150 mg/dL Borderline High: 150-199 mg/dL High: 200-499 mg/dL Very High: >500 mg/dL Performed By: #### L 100.0100, L500.4100, L500.4050 ####[facility] [address] [place], [address] MCV (mean corpuscular volume ) determinationOrdered By: Marika Josue on 05-06-2025 MCV (RBC) [Entitic vol] 90.2 fL 80-94 [facility] Mean corpuscular hemoglobin (MCH) determinationOrdered By: Marika Liat on 05-06-2025 MCH (RBC) [Entitic mass] 31.9 pg 27.0-32.0 [facility] Mean corpuscular hemoglobin concentration (MCHC) determinationOrdered By: Marika Josue on 05-06-2025 MCHC (RBC) [Mass/Vol] 35.4 g/dL 32-36 [facility] Mean platelet volume determi nationOrdered By: Marika Josue on 05-06-2025 Platelet mean volume (Bld) [Entitic vol] 9.5 fL 6.2-12.0 [facility] Monocyte percentageOrdered B y: Marika Josue on 05-06-2025 Monocytes/100 WBC (Bld) 7.1 % 0-10 [facility] Neutrophil percentageOrdered By: Marika Josue on 05-06-2025 Neutrophils/100 WBC (Bld) 53.9 % 47-70 [facility] Nucleated red blood cell per centageOrdered By: Marika Josue on 05-06-2025 Nucleated RBC/100 WBC (Bld) [Ratio] 0 % 0-5 [facility] Platelet countOrdered By: [place] Josue on 05-06-2025 Platelets (Bld) [#/Vol] 272 10*3/uL 150-450 [facility] Potassium measurement (mass/ volume)Ordered By: Marika Josue on 05-06-2025 Potassium (Unsp spec) [Mass/Vol] 3.8 mmol/L 3.3-5.1 [facility] RBC Auto (Bld) [#/Vol]Ordere d By: Marika Josue on 05-06-2025 RBC (Bld) [#/Vol] 4.70 10*6/uL 4.6-6.2 [facility] Screening total cholesterol/ high density lipoprotein (HDL) cholesterol ratioOrdered By: Marika Josue on 05-06-2025 Cholesterol.total/Choles terol in HDL [Mass ratio] 3.19 {ratio} [facility] Serum creatinine measurement (mass/volume)Ordered By: Marika Josue on 05-06-2025 Creatinine [Mass/Vol] 1.03 mg/dL 0.70-1.20 [facility] Serum globulin measurementOr dered By: Marika Josue on 05-06-2025 Globulin (S) [Mass/Vol] 2.5 g/dL 2.2-4.2 [facility] Serum glucose measurement (m ass/volume)Ordered By: Marika Josue on 05-06-2025 Glucose [Mass/Vol] 93 mg/dL 70-99 [facility] Serum or plasma alanine jasso otransferase (ALT) measurementOrdered By: Marika Josue on 05-06-2025 ALT [Catalytic activity/Vol] 23 U/L <47 [facility] Serum or plasma albumin nila urement (mass/volume)Ordered By: Marika Josue on 05-06-2025 Albumin [Mass/Vol] 4.7 g/dL 3.5-5.0 [facility] Serum or plasma albumin/glob ulin mass ratioOrdered By: Marika Josue on 05-06-2025 Albumin/Globulin [Mass ratio] 1.9 {ratio} 0.9-2.4 [facility] Serum or plasma alkaline jolie sphatase measurementOrdered By: Marika Josue on 05-06-2025 ALP [Catalytic activity/Vol] 74 U/L 40-129 [facility] Serum or plasma calcium nila urement (mass/volume)Ordered By: Marika Josue on 05-06-2025 Calcium [Mass/Vol] 9.4 mg/dL 7.6-11.0 [facility] Serum or plasma cholesterol in HDL measurement (mass/volume)Ordered By: Marika Josue on 05-06-2025 Cholesterol in HDL [Mass/Vol] 44 mg/dL >40 [facility] Comment on above: National Cholesterol Education Program (NCEP) guidelines:<40 mg/dL: Low HDL-cholesterol (major risk factor for CHD)>= 60 mg/dL: High HDL-cholesterol (negative risk factor for CHD)HDL-cholesterol is affected by a number of factors, e.g. smoking, exercise, hormones, sex and age. Serum or plasma cholesterol measurement (mass/volume)Ordered By: Marika Josue on 05-06-2025 Cholesterol [Mass/Vol] 140 mg/dL <201 [facility] Comment on above: Cholesterol level, D esirable <200 mg/dLBorderline high cholesterol 200-239 mg/dLHigh cholesterol >=240 mg/dLRecommendations of the NCEP Adult Treatment Panel for the following risk-cutoff thresholds for the [place] population. Serum or plasma urea nitroge n measurement (mass/volume)Ordered By: Marika Josue on 05-06-2025 Urea nitrogen [Mass/Vol] 10 mg/dL 4-19 [facility] Sodium levelOrdered By: Sanjeev Josue on 05-06-2025 Sodium [Moles/Vol] 142 mmol/L 133-145 [facility] Total proteinOrdered By: José Miguel Josue on 05-06-2025 Protein [Mass/Vol] 7.3 g/dL 5.9-8.4 [facility] Triglycerides measurementOrd ered By: Marika Josue on 05-06-2025 Triglyceride [Mass/Vol] 86 mg/dL <199 [facility] Comment on above: The drugs N-Acetylcy steine and Metamizole may falsely depress this assay. Normal range: <150 mg/dLBorderline High: 150-199 mg/dLHigh: 200-499 mg/dLVery High: >500 mg/dL White blood cell (WBC) count Ordered By: Marika Josue on 05-06-2025 WBC (Bld) [#/Vol] 6.5 10*3/uL 4.4-11.0 [facility] Internal Medicine Office Vis itoeleanor 05-05-2025 Internal Medicine Office Visit [facility] [address] [place] [address] [address] [place] [address] OFFICE VISIT Date of Service: 05/06/25 MR#: [id number] Acct: [id number] Name: SONNY SOUZA Rep #: [id number] : 1975 Provider: Dr. 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 Pt not regularly checking bp's when he does states mid 130's/80's. Pt does not keep logs. Pt states it is elevated today due to being at work having multiple drinks of caffeine. [facility] Medical History Alcohol use Arthritis Back pain Gastric reflux Smoker Hypertension Acute bacterial prostatitis Kidney stones GI problem Bone fracture Surgical History Hx of colonoscopy Family History Father Alcohol abuse Arthritis Hypertension Mother Alcohol abuse Sister Cancer, Onset Age: 48 brain tumor Social History (Updated 05/06/25 @ 08:[address] 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 1. Little interest or pleasure in doing things: not at all 2. Feeling down, depressed, or hopeless: not at all 3. Trouble falling or staying asleep, or sleeping too much: not at all 4. Feeling tired or having little energy: not at all 5. Poor appetite or overeating: not at all 6. Feeling bad about yourself - or that you are a failure or have let yourself and your family down: not at all 7. Trouble concentrating on things, such as reading the newspaper or watching television: not at all 8. Moving or speaking so slowly that other people could have noticed? - Or the opposite - being so fidgety or restless that you have been moving around a lot more than usual: not at all 9. Thoughts that you would be better off or of hurting yourself in some way: not at all Total score: 0 If you checked off any problems, how difficult have these problems made it for you to do your work, take care of things at home, or get along with other people?: not difficult at all Source: Developed by Drs. Sathish Stone, Kell Martinez, Olivier Ramos and colleagues, with an educational parth from [employer]. HPI HPI Details: SONNY SOUZA, is a 50 M who presents to the office today for a follow up. He is due for some routine blood work and is up to date on his screening. He isn't due for any immunizations. He quit smoking in January and has been doing well without them. He denies any significant cravings at all. He doesn't need any refills today. He reports he is eating healthy and staying active with work. He does check his blood pressure at home and reports it is usually in the 130s/80s. He reports he has been trying to watch his salt intake. He continues to drink about 1/2 pot of coffee each day. He reports he hasn't had any further episodes of chest pain since he was last seen. His GERD has been well controlled. He states he stopped taking the omeprazole about a month ago. He hasn't had any further symptoms since stopping it. He reports he continues to have problems with his back and the numbness in his feet. He states it waxes and wanes. He feels it mostly in his mid back but can go down into his lower back. He reports certain things like picking someth (more content not included)... Normal [facility] Colonoscopy Reporton 025 Colonoscopy Report [facility] Medical Records Department [address] [place] [address] Colonoscopy Report MR#: [id number] Acct: [id number] Name: SONNY SOUZA Rep #: [id number] : 1975 49 From: Mak Lombardi MD PCP: Dr. Marika Josue MD Status:REG [facility] [place] Patient Name: Sonny Souza Procedure Date: 01/05/2025 9:09 AM Date of : 1975 Age: 49 Procedure: Colonoscopy Indications: Screening for colorectal malignant neoplasm Providers: Mak Lombardi MD Medicines: Monitored Anesthesia Care Patient Profile: Refer to note in patient chart for documentation of history and physical. Last Colonoscopy: 5 years ago. Complications: No immediate complications. Estimated blood loss: Minimal. Procedure: Pre-Anesthesia Assessment: - Prior to the procedure, a History and Physical was performed, and patient medications and allergies were reviewed. The patient's tolerance of previous anesthesia was also reviewed. The risks and benefits of the procedure and the sedation options and risks were discussed with the patient. All questions were answered, and informed consent was obtained. Prior Anticoagulants: The patient has taken no anticoagulant or antiplatelet agents. ASA Grade Assessment: II - A patient with mild systemic disease. After reviewing the risks and benefits, the patient was deemed in satisfactory condition to undergo the procedure. After I obtained informed consent, the scope was passed under direct vision. Throughout the procedure, the patient's blood pressure, pulse, and oxygen saturations were monitored continuously. The colonoscope was introduced through the anus and advanced to the cecum, identified by appendiceal orifice and ileocecal valve. The ileocecal valve, appendiceal orifice, and rectum were photographed. The entire colon was examined. The colonoscopy was somewhat difficult due to significant looping. Successful completion of the procedure was aided by changing the patient to a supine position. The patient tolerated the procedure well. The quality of the bowel preparation was fair. Moderate Sedation: See the other procedure note for documentation of moderate sedation with intraservice time. Scope In: 9:28:40 AM Scope Withdrawal Time 0 hours 7 minutes 30 seconds Scope Out: 9:55:56 AM Total Procedure Duration Time 0 hours 27 minutes 16 seconds Findings: The perianal and digital rectal examinations were normal. Internal hemorrhoids were found during endoscopy. The hemorrhoids were mild. The exam was otherwise without abnormality. A 3 mm polyp was found in the cecum. The polyp was semi-sessile. The polyp was removed with a cold biopsy forceps. Resection and retrieval were complete. Verification of patient identification for the specimen was done by the nurse using the patient's name, date and medical record number. Estimated blood loss was minimal. Impression: - Preparation of the colon was fair. - Internal hemorrhoids. - The examination was otherwise normal. - One 3 mm polyp in the cecum, removed with a cold biopsy forceps. Resected and retrieved. Recommendation: - Discharge patient to home (ambulatory). - High fiber diet. - Await pathology results. - Repeat colonoscopy in 5 years for surveillance based on pathology results. - Return to my office PRN. - Continue present medications. Procedure Code(s): --- Professional --- 69156, Colonoscopy, flexible; with biopsy, single or multiple Diagnosis Code(s): --- Professional --- Z12.11, Encounter for screening for malignant neoplasm of colon D12.0, Benign neoplasm of cecum K64.8, Other hemorrhoids CPT copyright 2021 [employer]. All rights reserved. The codes documented in this report are preliminary and upon buckle sewer machine review may be revised to meet current compliance requirements. Mak Lombardi MD 01/05/2025 10:02:16 AM This report has been signed electronically. Number of Addenda: 0 Note Initiated On: 01/05/2025 9:09 AM 01/05/25 1002 Date Mak Lombardi MD Cosigner Signature: Date (if indicated) CC: Dr. Marika Josue MD; Dr. Mak Lombardi MD Date Dictated: 01/05/2509 Date Transcribed: Aquatic Biologist: SW Signed [facility] MR/POSTOP.ANEon 01-05-2025 MR/POSTOP.[facility] Medical Records Department [address] [place] [address] Anesthesia Postop Eval I 01/05/25 1005 MR#: [id number] Acct: [id number] Name: ROSALIESONNYSARAHI MEZA Rep #: [id number] : 1975 49 From: Justo Michaels PCP: Dr. Marika Josue MD Status:REG SDC Y Race: C Location: [address] Anesthesia: Postop Eval I Current Vital Signs Temperature: 98.2 F Pulse Rate: 63 Blood Pressure: 131/89 Respiratory Rate: 16 Pulse Ox: 93 Oxygen Delivery Method: Room Air Assessment Airway patent: Yes Spontaneous unlabored respirations: Yes Mental status: Asleep nausea: No Vomiting: No Anesthesia Complication: No Fluid Hydration Crystalloid volume administer (ml): 90 Total IV fluid infused: 90 Progress Note Anesthesia document: Postop Eval 1 completed: Yes 01/05/25 1006 Date Justo Urban Signature: Date CC: Signed [facility] MR/[id number] 01-05-2025 MR/POSTOPAN2 [facility] Medical Records Department [address] [place] [address] Anesthesia Postop Eval II 01/05/25 1010 MR#: [id number] Acct: [id number] Name: SONNY SOUZA Rep #: [id number] : 1975 49 From: Jose Lee MD PCP: Dr. Marika Josue MD Status:REG SDC Y Race: C Location: [place] [address] Anesthesia Postop Eval I Sum Postop Eval Completion status Anesthesia document: Postop Eval 1 completed: Yes Anesthesia Postop Eval I Summary Anesthesia Postop Eval I Summary: Anesthesia Postop Eval I: Assessment Summary Airway patent Yes 01/05/25 10:06 [email or web address] Spontaneous unlabored Yes 01/05/25 10:06 [email or web address] respirations Mental status Asleep 01/05/25 10:06 [email or web address] nausea No 01/05/25 10:06 [email or web address] Vomiting No 01/05/25 10:06 [email or web address] Anesthesia Postop Eval I: Fluid Summary Crystalloid volume administer 90 01/05/25 10:06 [email or web address] (ml) Colloids volume administered ( ml) Blood Product volume administered (ml) Total IV fluid infused 90 01/05/25 10:06 [email or web address] Anesthesia Postop Eval I: Summary Notes Anesthesia Complication No 01/05/25 10:06 [email or web address] Anesthesia Complication Comment: Post-operative progress note Anesthesia: Postop Eval II Evaluation Mental status: Awake and Calm Pain Level: 0 nausea: No Vomiting: No Complications Anesthesia Complication: No 01/05/25 1010 Date Jose Lee MD Cosigner Signature: Date CC: Signed Normal [facility] Surgery Specimen Level Lawson 01-05-2025 Surgery Specimen Level IV -------- Patient Age/Sex Location Account Attending Physician -------- SONNY SOUZA 49/M EN [id number] Dr. Mak Lombardi MD -------- Specimen: [id number] Received: 01/05/25 Status: JOSS De La O Num: [id number] Spec Type: COLON BX Subm Dr: Dr. Mak Lombardi MD HEADER OPERATION: Colonoscopy with biopsy PRE-OP DIAGNOSIS: Encounter for screening for malignant neoplasm of colon TISSUE SUBMITTED: Cecal polyp -------- MICROSCOPIC DIAGNOSIS COLON, CECAL POLYP, BIOPSY: * Tubular adenenoma. MICROSCOPIC DESCRIPTION Slides are reviewed. GROSS DESCRIPTION Received in fixative is one container labeled with the patient's name and designated Cecal polyp. The specimen consists of one irregular fragment of light rojas soft tissue that measures 0.5 x 0.3 x 0.2 cm. The specimen is totally submitted in one cassette. 01/05/2025 CPT:77075 -------- Patient Age/Sex Location Account Attending Physician -------- ROSALIESONNY MEZA 49/M EN [id number] Dr. Mak Lombardi MD -------- Signed (signature on file) Dr. Miesha Bonilla MD 01/07/25 1755 -------- Normal [facility] Comment on above: Performed By: #### P EVARISTO #### [facility] Laboratory [address] [place], [id number] Office Visit Reporton 2024 Office Visit Report [facility] [address] [place] [address] OFFICE VISIT Date of Service: 12/22/24 MR#: [id number] Acct: [id number] Patient: SONNY SOUZA Rep #: [id number] : 1975 Provider: JENNA NURSE Age/Sex: 49/M Location: [facility] Status: Signed Intake Vital Signs 12/08/24 07:33 12/22/24 08:07 Height 5 ft 11 in Weight: 212 lb 6 oz BMI 29.6 BP 164/98 H 142/80 H Blood Pressure Location Lt brachial Lt brachial Position Sitting Sitting Respiration 16 Pulse 76 Pulse Source Monitor Temp 96.6 F L Temp Source Temporal Pulse Oximetry (%) 98 Oxygen Delivery Method room air Intake Visit Reasons: BP CHK Chief Complaint: bp meds Allergies lisinopril Adverse Reaction (Verified 12/22/24 08:08) Ears Ringing, Hearing disturbance Medications ???Medication ???Instructions ???Recorded ???Confirmed ???Type omeprazole 20 mg capsule,delayed 20 mg PO QDAY 11/19/24 12/22/24 Hi story release amlodipine 5 mg tablet 5 mg PO QDAY #30 tabs 12/08/24 Rx Assessment and Plan Assessment and Plan (1) Hypertension: Status: Chronic Qualifiers: Hypertension type: primary hypertension Qualified Code(s): I10 - Essential (primary) hypertension 12/22/24 1618 Date Marika Josue MD [facility] Signature: Date (if applicable) CC: Dr. Marika Josue MD [facility] Internal Medicine Office Vis solo 12-07-2024 Internal Medicine Office Visit [facility] [address] [place] [address] [address] [place], [place] [address] OFFICE VISIT Date of Service: 12/08/24 MR#: [id number] Acct: [id number] Name: ROSALIESONNY Rep #: [id number] : 1975 Provider: Dr. Marika contreras MD Age/Sex: 49/M Location: [facility] Status: Signed Intake Vital Signs 04/14/24 09:28 11/19/24 10:56 12/08/24 07:33 12/08/24 08:34 Height 5 ft 10 in 5 ft 11 in 5 ft 11 in Weight: 212 lb 6 oz BMI 29.6 BP 164/98 H 164/98 H Blood Pressure Location Lt brachial Position Sitting Respiration 16 Pulse 76 Pulse Source Monitor Temp 96.6 F L Temp Source Temporal Pulse Oximetry (%) 98 Oxygen Delivery Method room air Intake Visit Reasons: DISCUSS BP Chief Complaint: bp meds Structural Engineering Drafting Officer Required: No Accompanied by: Self Is patient in pain?: No Allergies lisinopril Adverse Reaction (Verified 12/08/24 07:30) Ears Ringing, Hearing disturbance Medications ???Medication ???Instructions ???Recorded ???Confirmed ???Type omeprazole 20 mg capsule,delayed 20 mg PO QDAY 11/19/24 12/08/24 Hi story release amlodipine 5 mg tablet 5 mg PO QDAY #30 tabs 12/08/2409/21 Rx Have you fallen in the past year?: No PFSH Medical History Acute bacterial prostatitis Kidney stones GI problem Bone fracture Surgical History Hx of colonoscopy Family History Father Alcohol abuse Arthritis Hypertension Mother Alcohol abuse Sister Cancer, Onset Age: 48 brain tumor Social History adopted: No household members: significant other current occupational status: 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 He is up to date on his routine blood work and has his colon cancer screening scheduled. He is due for his second shingles vaccine. He does smoke and doesn't want to quit at this time. He states he has cut back to 5 cigarettes per day, however. He doesn't need any refills today. He reports he is eating healthy and staying active. He does half hour on the treadmill each day and lifts weights as well. He does check his blood pressure at home and reports it is usually in the 150s/90s. Since he was last seen, he was started on a low dose of lisinopril. He is no longer taking it, however. He reports that he stopped it soon after it was prescribed stating it was causing him tinnitus. He reports he was too busy to call to update the office when he stopped it. He reports he has been trying to watch his salt intake. He continues to drink about 1/2 pot of coffee each day. He reports he went to the ED at [facility] on 11/17 with complaints of chest pain that had been going on for a few days prior to presentation. He reports it felt like he needed to burp and each time he did, it helped a little. Work up including EKG, chest XR and labs were fairly unremarkable. It was felt his symptoms were more GERD related and he was discharged home. He reports since his ED visit, he started taking omeprazole more regularly. He reports his chest pain has mostly resolved aside from noticing it after drinking coffee. He reports his back has been doing better as has the numbness in his feet. He reports it hasn't completely resolved, however. He never did the physical therapy as previously referred. ROS Const Constitutional: Positive for weight change (18 pound weight gain); No body ache, excessive sweating, fatigue, fever(s), frequent falls, headache(s), snoring, weakness, sleep problems or change in appetite Eyes Eyes: Positive for change in vision (wears glasses); No blurry vision, eye pain or Light sensitivity ENT ENT: No abnormal hearing, ear or mastoid pain, tinnitus, nasal congestion, headache(s), neck pain or sore throat Resp Respiratory: No cough, shortness of breath, snoring or wheezing Cardio Cardiology: No chest pain at rest (resolved), chest pain with exertion, excessive sweating, shortness of breath, dyspnea on exertion, lightheadedness, orthopnea, palpitations or other (no leg swelling) Gastro GI: Positive for heartburn (with drinking coffee); No abdominal pain, change in bowel habits, con (more content not included)... Normal [facility] Basic metabolic 2000 panelon 11-17-2024 Anion gap [Moles/Vol] 11 mmol/L Normal 8-15 [facility] Comment on above: Order Comment: Speci men Type: BLOOD SPECIMEN Ordering Facility: [facility] Address: [address] [place] [address] Performed By: #### 2 4321-2 #### [employer] [facility] CLIA [id number] [address] [place] [address] [place] Calcium [Mass/Vol] 8.9 mg/dL Normal 8.5-10.2 [facility] Comment on above: Order Comment: Aroni naif Type: BLOOD SPECIMEN Ordering Facility: [facility] Address: [address] [place] [address] Performed By: #### 2 4321-2 #### [facility] CLIA [id number] [address] [place] [address] [place] Chloride [Moles/Vol] 105 mmol/L Normal 98-107 [facility] Comment on above: Order Comment: Speci men Type: BLOOD SPECIMEN Ordering Facility: [facility] Address: [address] [place] [address] Performed By: #### 2 4321-2 #### [employer] [facility] CLIA [id number] [address] [place] [address] [place] CO2 [Moles/Vol] 24 mmol/L Normal 22-30 [facility] Comment on above: Order Comment: Speci men Type: BLOOD SPECIMEN Ordering Facility: [facility] Address: [address] [place] [address] Performed By: #### 2 4321-2 #### [employer] [facility] CLIA [id number] [address] [place] [address] [place] Creatinine [Mass/Vol] 0.89 mg/dL Normal 0.73-1.22 [facility] Comment on above: Order Comment: Yazan disla Type: BLOOD SPECIMEN Ordering Facility: [facility] Address: [address] [place] [address] Performed By: #### 2 4321-2 #### [facility] CLIA [id number] [address] [place] [address] [place] Creatinine and Glomerular filtration rate.predicted panel (S/P/Bld) 104 mL/min/1.73m??? Normal >=60 [facility] Comment on above: Order Comment: Yazan disla Type: BLOOD SPECIMEN Ordering Facility: [facility] Address: [address] [place] [address] Result Comment: Margoth mated Glomerular Filtration Rate (eGFR) is calculated using the 2020 CKD-EPI creatinine equation. This equation utilizes serum creatinine, sex, and age as parameters. The creatinine assay has traceable calibration to isotope dilution-mass spectrometry. Refer to KDIGO guidelines for clinical interpretation. In patients with unstable renal function, e.g. those with acute kidney injury, the eGFR may not accurately reflect actual GFR. Performed By: #### 2 4321-2 #### [facility] CLIA [id number] [address] [place] [address] [place] Glucose [Mass/Vol] 142 mg/dL High 74-99 [facility] Comment on above: Order Comment: Yazan disla Type: BLOOD SPECIMEN Ordering Facility: [facility] Address: [address] [place] [address] Result Comment: The [place] [employer] (ADA) provides guidance for cutoff values for fasting glucose and random glucose. The ADA defines fasting as no caloric intake for at least 8 hours. Fasting plasma glucose results between 100 to 125 mg/dL indicate increased risk for diabetes (prediabetes). Fasting plasma glucose results greater than or equal to 126 mg/dL meet the criteria for diagnosis of diabetes. In the absence of unequivocal hyperglycemia, results should be confirmed by repeat testing. In a patient with classic symptoms of hyperglycemia or hyperglycemic crisis, random plasma glucose results greater than or equal to 200 mg/dL meet the criteria for diagnosis of diabetes. Reference: Standards of Medical Care in Diabetes 2016, [place] [employer]. Diabetes Care. 2016.39(Suppl 1). Performed By: #### 2 4321-2 #### [facility] CLIA [id number] [address] [place] [address] [place] Potassium [Moles/Vol] 4.0 mmol/L Normal 3.7-5.1 [facility] Comment on above: Order Comment: Speci men Type: BLOOD SPECIMEN Ordering Facility: [facility] Address: [address] [place] [address] Performed By: #### 2 4321-2 #### [facility] CLIA [id number] [address] [place] [address] [place] Sodium [Moles/Vol] 140 mmol/L Normal 136-144 [facility] Comment on above: Order Comment: Speci men Type: BLOOD SPECIMEN Ordering Facility: [facility] Address: [address] [place] [address] Performed By: #### 2 4321-2 #### [facility] CLIA [id number] [address] [place] [address] [place] Urea nitrogen [Mass/Vol] 11 mg/dL Normal 9-24 [facility] Comment on above: Order Comment: Speci men Type: BLOOD SPECIMEN Ordering Facility: [facility] Address: [address] [place] [address] Performed By: #### 2 4321-2 #### [facility] CLIA [id number] [address] [place] [address] [place] CBC panel Auto (Bld)on 11-17 Erythrocyte distribution width (RBC) [Ratio] 11.6 % Normal 11.5-15.0 [facility] Comment on above: Order Comment: Speci men Type: BLOOD SPECIMEN Ordering Facility: [facility] Address: [address] [place] [address] Performed By: #### 5 8410-2 #### [facility] CLIA [id number] [address] [place] [address] [facility] Hematocrit (Bld) [Volume fraction] 41.4 % Normal 39.0-51.0 [facility] Comment on above: Order Comment: Speci men Type: BLOOD SPECIMEN Ordering Facility: [facility] Address: [address] [place] [address] Performed By: #### 5 8410-2 #### [facility] CLIA [id number] [address] [place] [address] [place] [facility] Hemoglobin (Bld) [Mass/Vol] 14.5 g/dL Normal 13.0-17.0 [facility] Comment on above: Order Comment: Speci men Type: BLOOD SPECIMEN Ordering Facility: [facility] Address: [address] [place] [address] Performed By: #### 5 8410-2 #### [facility] CLIA [id number] [address] [place], [place] [address] [place] [address] [place] MCH (RBC) [Entitic mass] 32.1 pg Normal 26.0-34.0 [facility] Comment on above: Order Comment: Speci men Type: BLOOD SPECIMEN Ordering Facility: [facility] Address: [address] [place] [address] Performed By: #### 5 8410-2 #### [facility] CLIA [id number] [address] [place] [address] [place] MCHC (RBC) [Mass/Vol] 35.0 g/dL Normal 30.5-36.0 [facility] Comment on above: Order Comment: Speci men Type: BLOOD SPECIMEN Ordering Facility: [facility] Address: [address] [place] [address] Performed By: #### 5 8410-2 #### [facility] CLIA [id number] [address] [place] [address] [place] MCV (RBC) [Entitic vol] 91.6 fL Normal 80.0-100.0 [facility] Comment on above: Order Comment: Speci men Type: BLOOD SPECIMEN Ordering Facility: [facility] Address: [address] [place] [address] Performed By: #### 5 8410-2 #### [facility] CLIA [id number] [address] [place] [address] [place] Platelet mean volume (Bld) [Entitic vol] 9.0 fL Normal 9.0-12.7 [facility] Comment on above: Order Comment: Speci men Type: BLOOD SPECIMEN Ordering Facility: [facility] Address: [address] [place] [address] Performed By: #### 5 8410-2 #### [facility] CLIA [id number] [address] [place] [address] [place] Platelets (Bld) [#/Vol] 224 10*3/uL Normal 150-400 [facility] Comment on above: Order Comment: Speci men Type: BLOOD SPECIMEN Ordering Facility: [facility] Address: [address] [place] [address] Performed By: #### 5 8410-2 #### [facility] CLIA [id number] [address] [place] [address] [place] RBC (Bld) [#/Vol] 4.52 10*6/uL Normal 4.20-6.00 [facility] Comment on above: Order Comment: Speci men Type: BLOOD SPECIMEN Ordering Facility: [facility] Address: [address] [place] [address] Performed By: #### 5 8410-2 #### [facility] CLIA [id number] [address] [place] [address] [place] WBC (Bld) [#/Vol] 6.18 10*3/uL Normal 3.70-11.00 [facility] Comment on above: Order Comment: Speci men Type: BLOOD SPECIMEN Ordering Facility: [facility] Address: [address] [place] [address] Performed By: #### 5 8410-2 #### [facility] CLIA [id number] [address] [place] [address] [facility] ED NOTEon 11-17-2024 ED NOTE HNO ID: [id number] Author: DISHA SALINAS RN Service: Emergency Medicine Author Type: Registered Nurse Type: ED Notes Filed: 11/19/2024 10:23 Note Text: Patient Call Back Information How are you doing ? better Did we appropriately manage your pain? Yes Did you understand your discharge instructions? Yes Did you get your prescriptions filled? Yes Were you able to make a follow-up appointment with your physician? Yes Were you comfortable during your stay here? Yes Did a member of the ER nursing team round on you during your visit? Yes You will receive a patient satisfaction survey in the mail in the nest 2 weeks, please take the time to fill out the survey as your input from your ER visit is very important to us. Yes Can we do anything else to help you? No [facility] ED NOTE HNO ID: [id number] Author: MIGUEL DELGADO RN Service: Emergency Medicine Author Type: Registered Nurse Type: ED Notes Filed: 11/17/2024 02:29 Note Text: Patient discharge instructions given to patient. Patient educated on discharge instructions. Patient denied having questions at this time regarding discharge instructions. Patient discharged home at this time. [facility] ED NOTE HNO ID: [id number] Author: MIGUEL DELGADO RN Service: Emergency Medicine Author Type: Registered Nurse Type: ED Notes Filed: 11/17/2024 02:27 Note Text: ED physician at bedside. [facility] ED NOTE HNO ID: [id number] Author: MIGUEL DELGADO RN Service: Emergency Medicine Author Type: Registered Nurse Type: ED Notes Filed: 11/17/2024 00:07 Note Text: ED Physician at bedside. [facility] ED PROV NOTEon 11-17-2024 ED PROV NOTE HNO ID: [id number] Author: FELIX SOTO MD Service: ? Author Type: Physician Type: ED Provider Notes Filed: 11/17/2024 02:29 Note Text: ED Provider Note Patient Name: Sonny Souza : 1975 SERVICE DATE: 11/17/24 History Patient presents with: Chest Pain Pt presenting with L-sided CP that he has had since . He reports that it is nonradiating and not associated with exertion. No associated SOB or nausea. He reports that he had improvement with belching and he started taking tums with mild improvement. He reports that he came as it was worse tonight after taking a nap this evening (~2000). Pt denies calf pain/edema, hemoptysis, malignancy, hormone use, recent trauma/travel/surgery , hx VTE. He reports not taking his anti-HTN as he was getting side effects from this. He reports smoking and daily EtOH. PAST MEDICAL HISTORY Diagnosis Date Essential hypertension Gastroesophageal reflux disease Nondependent alcohol abuse Tobacco abuse PAST SURGICAL HISTORY Procedure Laterality Date NONE FAMILY HISTORY Problem Relation Age of Onset Heart Paternal Grandmother Hypertension Father Arthritis Paternal Grandfather Arthritis Father Rheumatoid other (lupus [Other]) Sister Social History Tobacco Use Smoking status: Every Day Current packs/day: 0.50 Average packs/day: 0.5 packs/day for 31.1 years (15.5 ttl pk-yrs) Types: Cigarettes Start date: 10/28/1993 Smokeless tobacco: Current Types: Chew Tobacco comments: 1 can of chew every 3 days Substance and Sexual Activity Alcohol use: Yes Alcohol/week: 28.0 standard drinks of alcohol Types: 28 Cans of Beer (12oz) per week Comment: 4 drinks/day on a typical drinking day Drug use: No Sexual activity: Not on file ALLERGIES No Known Allergies Review of Systems Physical Exam Vitals BP Pulse Temp Temp src Resp SpO2 Weight Height -- -- -- -- -- -- -- -- Physical Exam Vitals and nursing note reviewed. Constitutional: General: He is not in acute distress. Appearance: He is well-developed. He is not diaphoretic. HENT: Head: Normocephalic and atraumatic. Eyes: General: No scleral icterus. Right eye: No discharge. Left eye: No discharge. Conjunctiva/sclera: Conjunctivae normal. Neck: Trachea: No tracheal deviation. Cardiovascular: Rate and Rhythm: Normal rate and regular rhythm. Heart sounds: Normal heart sounds. No murmur heard. No friction rub. No gallop. Pulmonary: Effort: Pulmonary effort is normal. No respiratory distress. Breath sounds: Normal breath sounds. No stridor. No wheezing or rales. Abdominal: General: Bowel sounds are normal. There is no distension. Palpations: Abdomen is soft. Tenderness: There is no abdominal tenderness. There is no guarding or rebound. Musculoskeletal: General: No swelling or tenderness. Normal range of motion. Cervical back: Normal range of motion. Skin: General: Skin is warm and dry. Capillary Refill: Capillary refill takes less than 2 seconds. Coloration: Skin is not pale. Findings: No erythema or rash. Neurological: Mental Status: He is alert and oriented to person, place, and time. Diagnostic Testing ED Labs Ordered and Reviewed - No data to display EKG shows NSR w/o ischemic or arrhythmic changes CBC shows no significant leukocytosis or severe anemia BMP shows no significant glucose or electrolyte abnormality or kidney injury Hstroponin wnl x2 CXR (personally reviewed) shows no acute process Procedures ED Course / Clinical Impression Clinical Impressions as of 11/17/24 0227 Chest pain, unspecified type Primary hypertension All questions answered. Pt understands and agrees w/ the plan. Pt d/c'd w/ instructions to f/u w/ PCP. MDM / Disposition / Plan Chart reviewed showing PMHx HTN, GERD. Pt presenting w/ CP. Not consistent w/ dissection, esophageal rupture, tamponade, ptx. Pt meets PERC. Pt without signs of ACS by hstroponin protocol. Pt stable for d/c. Have higher suspicion for possible GERD etiology. Of note, pt was quite hypertensive during ED course in setting of known HTN and now off of his medications though he had significant spontaneous improvement. He has PCP for f/u. It is unclear what he had that he had side effects with so will forego initiating other anti-HTN. He does not have signs of hypertensive emergency here. SIGNATURE: Felix Soto MD - FELIX SOTO 11/17/24 0229 Normal [facility] EKGon 11-17-2024 Electrocardiogram Ventricular Rate : 8 5 BPM Atrial Rate : 85 BPM P-R Interval : 164 ms QRS Duration : 88 ms Q-T Interval : 378 ms QTC Calculation(Bazett) : 449 ms Calculated P [place] : 33 degrees Calculated R [place] : 2 degrees Calculated T [place] : 11 degrees NORMAL SINUS RHYTHM NORMAL ECG NO PREVIOUS ECGS AVAILABLE Confirmed by MD SOTO VINAYAK ([id number]) on 11/17/2024 10:35:32 AM NAME : SONNY SOUZA PID : [id number] : 1975 Gender : Male Race : ORD : Procedure Date : Nov 17 2024 00:12:08 Edit Date : Nov 17 2024 10:35:34 Diagnosis: NORMAL SINUS RHYTHM NORMAL ECG NO PREVIOUS ECGS AVAILABLE Confirmed by MD SOTO VINAYAK ([id number]) on 11/17/2024 10:35:32 AM Test Reason : Location : 191 : CARD ED Overread By : MD SOTO VINAYAK Edited By : MD SOTO VINAYAK Referred By : , Acquired by : KELL GIBBONS Normal [facility] HIGH SENSITIVITY TROPONIN T (INITIAL)on 11-17-2024 Troponin T.cardiac High sensitivity method [Mass/Vol] <6 Normal <12 [facility] Comment on above: Order Comment: Yazan disla Type: BLOOD SPECIMEN Ordering Facility: [facility] Address: [address] [place] [address] Performed By: #### L [id number] #### [facility] CLIA [id number] [address] [place] [address] HIGH SENSITIVITY TROPONIN T (SECOND)on 11-17-2024 Troponin T.cardiac High sensitivity method [Mass/Vol] <6 Normal <12 [facility] Comment on above: Order Comment: Yazan disla Type: BLOOD SPECIMEN Ordering Facility: [facility] Address: [address] [place] [address] Performed By: #### L [id number] #### [facility] CLIA [id number] [address] [facility] XR CHEST 2V FRONTAL/LATon XR CHEST 2V FRONTAL/LAT * * *Final Repor t* * * DATE OF EXAM: Nov 17 2024 12:45AM LDX [id number] - XR CHEST 2V FRONTAL/LAT / PROCEDURE REASON: Chest Pain * * * * Physician Interpretation * * * * EXAMINATION: CHEST RADIOGRAPH (2 VIEW FRONTAL and LATERAL) CLINICAL HISTORY: Chest Pain MQ: [id number]_6 EXAM DATE/TIME: 11/17/2024 12:45 AM COMPARISON: No relevant prior studies available. RESULT: Lines, tubes, and devices: None. Lungs and pleura: No consolidation, focal infiltrate, or overt pulmonary edema. No pleural effusion. No pneumothorax. Cardiomediastinal silhouette: Normal cardiomediastinal silhouette. Bones and soft tissues: Unremarkable. IMPRESSION: No acute abnormality. Aquatic Biologist: PSCAlanna Transcribe Date/Time: Nov 17 2024 1:07A Dictated by : ARIEL ALEJANDRO MD This examination was interpreted and the report reviewed and electronically signed by: ARIEL ALEJANDRO MD on Nov 17 2024 1:08AM EST [id number] Normal [facility] Vital Signs Date Time Vital Sign Value Performing Clinician Faci lity 05-06-2025 10:04-0400 Diastolic blood pressure 85 mm[Hg] Dr. Marika Josue MD Work Phone: [facility] 05-06-2025 10:04-0400 Systolic blood pressure 135 mm[Hg] Dr. Marika Josue MD Work Phone: [facility] 05-06-2025 08:28-0400 Body height 180.[address] Marika Josue MD Work Phone: [facility] 05-06-2025 08:28-0400 Body mass index (BMI) [Ratio] 28.1 kg/m2 Dr. Marika Josue MD Work Phone: [facility] 05-06-2025 08:28-0400 Body temperature 97.9 [degF] Dr. Marika Josue MD Work Phone: [facility] 05-06-2025 08:28-0400 Body weight 91.[address] Marika Josue MD Work Phone: [facility] 05-06-2025 08:28-0400 Diastolic blood pressure 98 mm[Hg] Dr. Marika Josue MD Work Phone: [facility] 05-06-2025 08:28-0400 Heart rate 72 /min Dr. Marika Josue MD Work Phone: [facility] 05-06-2025 08:28-0400 Respiratory rate 16 /min Dr. Marika Josue MD Work Phone: [facility] 05-06-2025 08:28-0400 SaO2% (BldA) [Mass fraction] 90 % Dr. Marika Josue MD Work Phone: [facility] 05-06-2025 08:28-0400 Systolic blood pressure 146 mm[Hg] Dr. Marika Josue MD Work Phone: [facility] 01-05-2025 10:25-0400 Body temperature 99.2 [degF] Dr. Marika Josue MD Work Phone: [facility] 01-05-2025 10:25-0400 Diastolic blood pressure 90 mm[Hg] Dr. Marika Josue MD Work Phone: [facility] 01-05-2025 10:25-0400 Heart rate 59 /min Dr. Marika Josue MD Work Phone: [facility] 01-05-2025 10:25-0400 Respiratory rate 16 /min Dr. Marika Josue MD Work Phone: [facility] 01-05-2025 10:25-0400 SaO2% (BldA) [Mass fraction] 97 % Dr. Marika Josue MD Work Phone: [facility] 01-05-2025 10:25-0400 Systolic blood pressure 126 mm[Hg] Dr. Marika Josue MD Work Phone: [facility] 01-05-2025 08:25-0400 Body height 180.[address] Marika Josue MD Work Phone: [facility] 01-05-2025 08:25-0400 Body mass index (BMI) [Ratio] 27.9 kg/m2 Dr. Marika Josue MD Work Phone: [facility] 01-05-2025 08:25-0400 Body weight [address] Marika Josue MD Work Phone: [facility] 12-22-2024 08:07-0500 Diastolic blood pressure 80 mm[Hg] Dr. Marika Josue MD Work Phone: [facility] 12-22-2024 08:07-0500 Systolic blood pressure 142 mm[Hg] Dr. Marika Josue MD Work Phone: [facility] 12-08-2024 08:34-0500 Diastolic blood pressure 98 mm[Hg] Dr. Marika Josue MD Work Phone: [facility] 12-08-2024 08:34-0500 Systolic blood pressure 164 mm[Hg] Dr. Marika Josue MD Work Phone: [facility] 12-08-2024 07:33-0500 Body mass index (BMI) [Ratio] 29.6 kg/m2 Dr. Marika Josue MD Work Phone: [facility] 12-08-2024 07:33-0500 Body temperature 96.6 [degF] Dr. Marika Josue MD Work Phone: [facility] 12-08-2024 07:33-0500 Body weight 96.[address] Marika Josue MD Work Phone: [facility] 12-08-2024 07:33-0500 Heart rate 76 /min Dr. Marika Josue MD Work Phone: [facility] 12-08-2024 07:33-0500 Respiratory rate 16 /min Dr. Marika Jsoue MD Work Phone: [facility] 12-08-2024 07:33-0500 SaO2% (BldA) [Mass fraction] 98 % Dr. Marika Josue MD Work Phone: [facility] 11-19-2024 10:56-0500 Body mass index (BMI) [Ratio] 26.4 kg/m2 Dr. Marika Josue MD Work Phone: [facility] 11-19-2024 10:56-0500 Body weight 86.[address] Marika Josue MD Work Phone: [facility] Encounters Encounter Date Encounter Type Care Provider Facility Start: 06-02-2025 ambulatory Marika Josue Facility :[facility] Start: 05-06-2025 End: 05-06-[address] Marika Josue MD -[facility] Work Phone: Start: 05-06-2025 End: 05-06-[address] Marika Josue MD Work Phone: -[facility] Start: 05-06-2025 End: 05-06-2025 ambulatory Marika Josue Facility:[facility] Start: 01-05-2025 ambulatory Marika Josue Facility :[facility] Start: 01-05-2025 Non-patient / Non-visit Dr. Mak Lombardi MD -[facility] Start: 01-05-2025 End: 01-05-2025 Admission to same day surgery center Dr. Mak Lombardi MD -Endoscopy Work Phone: Start: 01-05-2025 End: 01-05-[address] Marika Josue MD Work Phone: [facility] Work Phone: Start: 12-22-2024 End: 12-22-[address] Marika Josue MD -[facility] Work Phone: Start: 12-22-2024 End: 12-22-2024 ambulatory Marika Josue Facility:[facility] Start: 12-08-2024 End: 12-08-[address] Marika Josue MD -[facility] Work Phone: Start: 12-08-2024 End: 12-08-2024 ambulatory Marika Josue Facility:[facility] Start: 11-19-2024 Non-patient / Non-visit Dr. Shannan CRUZ Work Phone: -[facility] Work Phone: Start: 11-19-2024 ambulatory Anjelica Wally Facility:[facility] Start: 11-17-2024 Emergency department patient visit Facility:[facility] Start: 09-11-2016 End: 09-12-2016 [facility] Procedures Date Procedure Procedure Detail Performing Clinician Start: 01-05-[address] Marika Josue MD Work Phone: Plan of Treatment Date Care Activity Detail Author Start: 06-02-2025 [facility] Start: 05-06-2025 CBC W Auto Different ial panel - Blood [facility] Start: 05-06-2025 Comprehensive metabo lic 2000 panel - Serum or Plasma [facility] Start: 05-06-2025 Lipid 1996 panel - Serum or Plasma [facility] Start: 01-05-2025 Patient discharge [facility] Alanine aminotransfe rase [Enzymatic activity/volume] in Serum or Plasma [facility] Albumin [Mass/volume ] in Serum or Plasma [facility] Alkaline phosphatase [Enzymatic activity/volume] in Serum or Plasma [facility] Anion gap in Serum or Plasma [facility] Bilirubin, total measurement [facility] BUN/Creatinine ratio [facility] Calcium [Mass/volume ] in Serum or Plasma [facility] Carbon dioxide, tota l [Moles/volume] in Central venous blood [facility] Cholesterol [Mass/vo lume] in Serum or Plasma [facility] Cholesterol in HDL [ Mass/volume] in Serum or Plasma [facility] Colonoscopy [facility] Creatinine [Mass/vol ume] in Serum or Plasma [facility] Erythrocyte mean cor puscular volume determination [facility] Glucose [Mass/volume ] in Serum or Plasma [facility] Hematocrit [Volume F raction] of Blood [facility] Hemoglobin [Mass/volume] in Blood [facility] Leukocytes [#/volume] in Blood [facility] Low density lipoprot ein cholesterol measurement [facility] Mean corpuscular hem oglobin concentration determination [facility] Mean corpuscular hem oglobin determination [facility] Measurement of renal function [facility] Neutrophil count [facility] Neutrophil percent d ifferential count [facility] Patient referral [facility] Work Phone: Platelets [#/volume] in Blood [facility] Potassium measurement [facility] Red blood cell count [facility] Red cell distributio n width determination [facility] Serum chloride measurement [facility] Sodium measurement [facility] Tobacco use cessation education [facility] Total cholesterol:HD L ratio measurement [facility] Total protein measurement [facility] Triglycerides measurement [facility] Urea nitrogen [Mass/ volume] in Serum or Plasma [facility] VLDL cholesterol measurement [facility] XR Lumbar spine 2 or 3 Views [facility] XR Thoracic spine 4 Views [facility] Immunizations Immunization Date Immunization Notes Care Provider [facility] 12-[facility] Marika Josue MD Work Phone: [facility] 04-14-[address] Marika Josue MD Work Phone: [facility] 10-28-2014 tetanus toxoid, redu shruthi diphtheria toxoid, and acellular pertussis vaccine, adsorbed Dr. Marika Josue MD Work Phone: [facility] Payers Date Payer Category Payer Self-pay 2012 Unknown [id number] Unknown [id number] [id number] Unknown [id number] 2.16.8 [id number] Unknown [id number] 2.16.8 [id number] Unknown [id number] 2.16.8 [id number] Unknown [id number] 2.16.8 [id number] Unknown [id number] 2.16.8 [id number] Unknown [id number] 2.16.8 [id number] Unknown [id number] 2.16.8 [id number] Social History Date Type Detail Facility Start: 01-01-[facility]25 [facility] Start: 01-05-2025 Sex Male (finding) [facility] Start: 1975 Sex Assigned At Male [facility] Start: 05-06-2025 [facility] Ex-[facility] (finding) [facility] Goals Date Patient Goal Desired Activity /State Mental Status Date Assessment Result Facility 01-05-2025 Cognitive function Light Pain [facility] Work Phone: Clinical Notes 12-08-2024 to 05-06-2025 Note Date & Type Note Facility 05-06-2025 Evaluation note Diagnosis Onset Date Resolution Smokes cigarettes noneactive May 062024 8:19am Suspected sleep apnea noneactive Apr 8:19am Essential hypertension noneactive 2024 8:19am GERD (gastroesophageal reflux disease) noneactive May 06, 2025 8:19am Mid back pain noneactive May 06, 2025 8:19am Screening for depression noneactive May 06, 2025 8:19am Numbness and tingling noneactive Apr 8:19am Screening for cardiovascular condition noneactive May 062024 8:19am Quit smoking within past year noneactive May 06, 2025 8:19am [facility] Work Phone: 1(515) 403-820203-11-2025 Consult note [facility] Medical Records Department [address] [place] [address] Anesthesia Postop Eval II 01/05/25 1010 MR#: [id number] Acct: [id number] Name: SONNY SOUZA Rep #:[id number] : 1975 49 From: Jose Lee MD PCP: Dr. Marika Josue MD Status:REG SDC Y Race: C Location: [place] [address]- Anesthesia Postop Eval I Sum Postop Eval Completion status Anesthesia document: Postop Eval 1 completed: Yes Anesthesia Postop Eval I Summary Anesthesia Postop Eval I Summary: Anesthesia Postop Eval I: Assessment Summary Airway patent Yes 01/05/25 10:06 [email or web address] Spontaneous unlabored Yes 01/05/25 10:06 [email or web address] respirations Mental status Asleep 01/05/25 10:06 [email or web address] nausea No 01/05/25 10:06 [email or web address] Vomiting No 01/05/25 10:06 [email or web address] Anesthesia Postop Eval I: Fluid Summary Crystalloid volume administer 90 01/05/25 10:06 [email or web address] (ml) Colloids volume administered ( ml) Blood Product volume administered (ml) Total IV fluid infused 90 01/05/25 10:06 [email or web address] Anesthesia Postop Eval I: Summary Notes Anesthesia Complication No 01/05/25 10:06 [email or web address] Anesthesia Complication Comment: Post-operative progress note Anesthesia: Postop Eval II Evaluation Mental status: Awake and Calm Pain Level: 0 nausea: No Vomiting: No Complications Anesthesia Complication: No 01/05/25 1010 MD> Date _ Jose Pattersonigngreg Signature: Date CC: ~ Signed [facility]03-11-2025 Consult note [facility] Medical Records Department [address] [place] [address] Anesthesia Postop Eval I 01/05/25 1005 MR#: [id number] Acct: [id number] Name: SONNY SOUZA Rep #:[id number] : 1975 49 From: Justo Michaels PCP: Dr. Marika Josue MD Status:REG SDC Y Race: C Location: [place] [address] Anesthesia: Postop Eval I Current Vital Signs Temperature: 98.2 F Pulse Rate: 63 Blood Pressure: 131/89 Respiratory Rate: 16 Pulse Ox: 93 Oxygen Delivery Method: Room Air Assessment Airway patent: Yes Spontaneous unlabored respirations: Yes Mental status: Asleep nausea: No Vomiting: No Anesthesia Complication: No Fluid Hydration Crystalloid volume administer (ml): 90 Total IV fluid infused: 90 Progress Note Anesthesia document: Postop Eval 1 completed: Yes 01/05/25 1006 > Date _ Justo Urban Signature: Date CC: ~ Signed [facility]03-11-2025 Procedure note [facility] Medical Records Department [address] [place] [address] Operative Report - CC Letter MR#: [id number] Acct: [id number] Name: SONNY SOUZA Rep #:[id number] : 1975 49 From: Mak Lombardi MD PCP: Dr. Marika Josue MD Status:REG [facility] 01/05/2025 Marika Josue Md Re : Colonoscopy procedure for Sonny Souza Dear Liat This procedure was performed on Sunday, January 05, 2025. My impressions and recommendations are as follows: Impressions : - Preparation of the colon was fair. - Internal hemorrhoids. - The examination was otherwise normal. - One 3 mm polyp in the cecum, removed with a cold biopsy forceps. Resected and retrieved. Recommendations : - Discharge patient to home (ambulatory). - High fiber diet. - Await pathology results. - Repeat colonoscopy in 5 years for surveillance based on pathology results. - Return to my office PRN. - Continue present medications. My findings are described in the full procedure note, which is enclosed. If I can be of further assistance, please feel free to contact me at . Sincerely, Mak Lombardi MD 01/05/2025 10:02:16 AM This report has been signed electronically. 01/05/25 1002 Date _ Mak Lombardi MD [facility] Signature: Date (if indicated) CC: Dr. Marika Josue MD; Dr. Mak Lombardi MD ~ Date Dictated: 01/05/25908 Date Transcribed: Aquatic Biologist: SW Signed [facility]03-11-2025 Procedure note [facility] Medical Records Department [address] [place] [address] Colonoscopy Report MR#: [id number] Acct: [id number] Name: SONNY SOUZA Rep #:[id number] : 1975 49 From: Mak Lombardi MD PCP: Dr. Marika Josue MD Status:[place] [facility] [place] Patient Name: Sonny Souza Procedure Date: 01/05/2025 9:09 AM Date of : 1975 Age: 49 Procedure: Colonoscopy Indications: Screening for colorectal malignant neoplasm Providers: Mak Lombardi MD Medicines: Monitored Anesthesia Care Patient Profile: Refer to note in patient chart for documentation of history and physical. Last Colonoscopy: 5 years ago. Complications: No immediate complications. Estimated blood loss: Minimal. Procedure: Pre-Anesthesia Assessment: - Prior to the procedure, a History and Physical was performed, and patient medications and allergies were reviewed. The patient's tolerance of previous anesthesia was also reviewed. The risks and benefits of the procedure and the sedation options and risks were discussed with the patient. All questions were answered, and informed consent was obtained. Prior Anticoagulants: The patient has taken no anticoagulant or antiplatelet agents. ASA Grade Assessment: II - A patient with mild systemic disease. After reviewing the risks and benefits, the patient was deemed in satisfactory condition to undergo the procedure. After I obtained informed consent, the scope was passed under direct vision. Throughout the procedure, the patient's blood pressure, pulse, and oxygen saturations were monitored continuously. The colonoscope was introduced through the anus and advanced to the cecum, identified by appendiceal orifice and ileocecal valve. The ileocecal valve, appendiceal orifice, and rectum were photographed. The entire colon was examined. The colonoscopy was somewhat difficult due to significant looping. Successful completion of the procedure was aided by changing the patient to a supine position. The patient tolerated the procedure well. The quality of the bowel preparation was fair. Moderate Sedation: See the other procedure note for documentation of moderate sedation with intraservice time. Scope In: 9:28:40 AM Scope Withdrawal Time 0 hours 7 minutes 30 seconds Scope Out: 9:55:56 AM Total Procedure Duration Time 0 hours 27 minutes 16 seconds Findings: The perianal and digital rectal examinations were normal. Internal hemorrhoids were found during endoscopy. The hemorrhoids were mild. The exam was otherwise without abnormality. A 3 mm polyp was found in the cecum. The polyp was semi-sessile. The polyp was removed with a cold biopsy forceps. Resection and retrieval were complete. Verification of patient identification for the specimen was done by the nurse using the patient's name, date and medical record number. Estimated blood loss was minimal. Impression: - Preparation of the colon was fair. - Internal hemorrhoids. - The examination was otherwise normal. - One 3 mm polyp in the cecum, removed with a cold biopsy forceps. Resected and retrieved. Recommendation: - Discharge patient to home (ambulatory). - High fiber diet. - Await pathology results. - Repeat colonoscopy in 5 years for surveillance based on pathology results. - Return to my office PRN. - Continue present medications. Procedure Code(s): --- Professional --- 37647, Colonoscopy, flexible; with biopsy, single or multiple Diagnosis Code(s): --- Professional --- Z12.11, Encounter for screening for malignant neoplasm of colon D12.0, Benign neoplasm of cecum K64.8, Other hemorrhoids CPT copyright 2021 [employer]. All rights reserved. The codes documented in this report are preliminary and upon buckle sewer machine review may be revised to meet current compliance requirements. Mak Lombardi MD 01/05/2025 10:02:16 AM This report has been signed electronically. Number of Addenda: 0 Note Initiated On: 01/05/2025 9:09 AM 01/05/25 1002 Date _ Mak Lombardi MD Cosigner Signature: Date (if indicated) CC: Dr. Marika Josue MD; Dr. Mak Lombardi MD ~ Date Dictated: 01/05/25 0909 Date Transcribed: Aquatic Biologist: JELLY Rosenberg [facility]03-11-2025 History and physical note [facility] Medical Records Department [address] [place] [address] History & Physical Exam 01/05/25915 MR#: [id number] Acct: [id number] Name: SONNY SOUZA Rep #:[id number] : 1975 49 From: Mak Lombardi MD PCP: Dr. Marika Josue MD Status:[facility] Location: [place] [address] HPI - General General Date of Admission: 01/05/25 Date of Service: 01/05/25 Chief Complaint: Colonoscopy HPI Narrative SONNY SOUZA, is a 49 M who presents for screening colonoscopy. Last colonoscopy was about 6 years ago. At that time he was having some diarrhea andwas diagnosed with microscopic colitis. He was placed on steroids and the symptoms resolved. He denies any recent symptoms or problems. No family history of colon polyps or colon cancer. [facility] Medical History Alcohol use Arthritis Back pain Gastric reflux Smoker Hypertension Acute bacterial prostatitis Kidney stones GI problem Bone fracture Home Medications ?Medication ?Instructions ?Recorded ?Last Taken ?Type omeprazole 20 mg capsule,delayed 20 mg PO QDAY 5 01/04/25 History release amlodipine 5 mg tablet 5 mg PO QDAY #90 tabs 01/05/25 Rx Allergy/AdvReac Type Severity Reaction Status Date / Time lisinopril AdvReac Ears Verified 01/05/25 08:21 Ringing, Hearing disturbance Family History Father Alcohol abuse Arthritis Hypertension Mother Alcohol abuse Sister Cancer, Onset Age: 48 brain tumor Surgical History Hx of colonoscopy Social History adopted: No household members: significant other current occupational status: 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 history of recent travel: No Smoking Status: Current every day smoker tobacco type: cigarettes and smokelesstobacco Smokeless tobacco user: chewing tobacco quit status: considering quitting alcohol intake: current alcohol intake frequency: 3 or more drinks per day details: 2-6 beer daily substance use type: does not use what type of physical activity do you participate in: none seatbelt use: always do you feel safe at home: Yes Vital Signs Vital Signs Vital Signs: 01/05/25 08:25 01/05/25 08:25 01/05/25 08:53 Temperature 99.2 F H 99.2 F H Temperature Source Temporal Pulse Rate 81 81 Respiratory Rate 16 16 Respiratory Pattern Normal Blood Pressure 165/92 H 165/92 H Blood Pressure Mean 116 Blood Pressure Source Monitor Blood Pressure Position Semi-Fowlers Blood Pressure Location Right Arm Pulse Ox 100 100 Oxygen Delivery Method Room Air Room Air Weight Weight: 200 lb 9.93 oz Body Mass Index (BMI) 27.9 Physical Exam Const alert, oriented x3 and no apparent distress Assessment & Plan Assessment/Plan (1) Encounter for screening for malignant neoplasm of colon: PLAN: Plan The patient is a 49-year-old male in need of a screening colonoscopy. His last colonoscopy was about 6 years ago. We discussed the details of the planned procedure and he wishes to proceed. This willbegin momentarily Charges/Coding Visit Charges Inpatient E&M: 80040 Init Hosp L1 01/05/25 0921 Cosigner Signature (if applicable): CC: Dr. Marika Josue MD; Dr. Mak Lombardi MD~ Signed [facility]03-11-2025 [facility] Medical Records Department [address] [place] [address] History Physical Exam 01/05/25915 MR#: [id number] Acct: [id number] Name: SONNY SOUZA Rep #: [id number] : 1975 49 From: Mak Lombardi MD PCP: Dr. Marika Josue MD Status:[facility] Location: [place] [address] HPI - General General Date of Admission: 01/05/25 Date of Service: 01/05/25 Chief Complaint: Colonoscopy HPI Narrative SONNY SOUZA, is a 49 M who presents for screening colonoscopy. Last colonoscopy was about 6 years ago. At that time he was having some diarrhea and was diagnosed with microscopic colitis. He was placed on steroids and the symptoms resolved. He denies any recent symptoms or problems. No family history of colon polyps or colon cancer. [facility] Medical History Alcohol use Arthritis Back pain Gastric reflux Smoker Hypertension Acute bacterial prostatitis Kidney stones GI problem Bone fracture Home Medications ???Medication ???Instructions ???Recorded ???Last Taken ???Type omeprazole 20 mg capsule,delayed 20 mg PO QDAY 11/19/24 01/04/25 Hi story release amlodipine 5 mg tablet 5 mg PO QDAY #90 tabs 01/04/2509/21 Rx Allergy/AdvReac Type Severity Reaction Status Date / Time lisinopril AdvReac Ears Verified 01/05/25 08:21 Ringing, Hearing disturbance Family History Father Alcohol abuse Arthritis Hypertension Mother Alcohol abuse Sister Cancer, Onset Age: 48 brain tumor Surgical History Hx of colonoscopy Social History adopted: No household members: significant other current occupational status: 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 history of recent travel: No Smoking Status: Current every day smoker tobacco type: cigarettes and smokeless tobacco Smokeless tobacco user: chewing tobacco quit status: considering quitting alcohol intake: current alcohol intake frequency: 3 or more drinks per day details: 2-6 beer daily substance use type: does not use what type of physical activity do you participate in: none seatbelt use: always do you feel safe at home: Yes Vital Signs Vital Signs Vital Signs: 01/05/25 08:25 01/05/25 08:25 01/05/25 08:53 Temperature 99.2 F H 99.2 F H Temperature Source Temporal Pulse Rate 81 81 Respiratory Rate 16 16 Respiratory Pattern Normal Blood Pressure 165/92 H 165/92 H Blood Pressure Mean 116 Blood Pressure Source Monitor Blood Pressure Position Semi-Fowlers Blood Pressure Location Right Arm Pulse Ox 100 100 Oxygen Delivery Method Room Air Room Air Weight Weight: 200 lb 9.93 oz Body Mass Index (BMI) 27.9 Physical Exam Const alert, oriented x3 and no apparent distress Assessment Plan Assessment/Plan (1) Encounter for screening for malignant neoplasm of colon: PLAN: Plan The patient is a 49-year-old male in need of a screening colonoscopy. His last colonoscopy was about 6 years ago. We discussed the details of the planned procedure and he wishes to proceed. This will begin momentarily Charges/Coding Visit Charges Inpatient E M: 34933 Init Hosp L1 01/05/25 0921 Cosigner Signature (if applicable): CC: Dr. Marika Josue MD; Dr. Mak Lombardi MD [facility]03-11-2025 Consult note [facility] Medical Records Department [address] [place] [address] Pre-Anesthesia Evaluation 01/05/25 0849 MR#: [id number] Acct: [id number] Name: SONNY SOUZA Rep #:[id number] : 1975 49 From: Jose Lee MD PCP: Dr. Marika Josue MD Status:REG SD Y Race: C Location: [place] [address] ASA Classification* ASA Classification ASA Classification: 2 Assessment & Plan Anesthesia* Anesthesia Assessment Anesthesia Assessment: Discussed sedation and/or anesthesia options, risks, benefits, and alternatives with patient/parents/legal guardian/POA. Questions invited. The patient/parents/legal guardian/POA seems to understand and agrees to proceedwith anesthesia plan. Reviewed the physical assessment, medical history, allergy history and patient home medications list prior to surgery/procedure/anesthetic and documented any changes. Performed airway and anesthesia risk assessments. Anesthesia Type Anesthesia Type: General History Source History Obtained from:: Patient Anesthesia Focused Assessment* Temperature: 99.2 F Pulse Rate: 81 Blood Pressure: 165/92 Respiratory Rate: 16 Pulse Ox: 100 Oxygen Delivery Method: Room Air Airway Assessment Mouth opens: >3 cm Mallampati Score: II Teeth Condition: Chipped/Broken and Missing Neck Range of motion (ROM): Full ROM Comment: poor dentition Focused Labs Anesthesia Preop lab: CBC WBC 7.0 K/mm3 (4.4-11.0) 04/14/24 10:04/14/24 RBC 4.93 M/mm3 (4.6-6.2) 04/14/24 10:04/14/24 Hgb 15.9 g/dL (13.0-16.5) 04/14/24 10:04/14/24 Hct 45.9 % (40-54) 04/14/24 10:04/14/24 Plt Count 252 K/mm3 (150-450) 04/14/24 10:04/14/24 CHEMISTRY Potassium 4.1 mmol/L (3.5-5.1) 04/14/24 10:04/14/24 Sodium 139 mmol/L (136-145) 04/14/24 10:04/14/24 BUN 10 mg/dL (7-18) 04/14/24 10:04/14/24 Creatinine 0.97 mg/dL (0.70-1.30) 04/14/24 10:04/14/24 Glucose 99 mg/dL (74-106) 04/14/24 10:04/14/24 TSH 1.38 uIU/mL (0.358-3.74) 04/14/24 10: COAG Pre-Assessment Diagnosis/Proposed Procedure Planned Operative Procedure(s): Colonoscopy - Open Access Anesthesia History Anesthesia History - content coordinator: Anesthesia History - content coordinator Hx Hospitalization No 01/01/25 10:43 Any Problems With Anesthesia No 01/01/25 10:43 Cholinesterase deficiency No 01/01/25 10:43 You/Your Family Experience No 01/01/25 10:43 fever (hyperthermia) with Relationship Recent Exposure to Contagious No 01/05/25 08:25 Disease Does patient have nerve No 01/01/25 10:43 stimulator Patient instructed to have device shut off --Does patient have Pacemaker No 01/05/25 08:25 or ICD? When Was Last Pacemaker Check QUESTION #4 FULL TEXT: You/Your Family Experience fever (hyperthermia) with Anesthesia Any additional information?: No Last Oral Intake Last Oral intake: Last Oral Intake NPO since 06:00 01/05/25 08:25 Meds taken in AM with sips of Yes 01/05/25 08:25 water? Meds patient instructed to AMLODIPINE 01/05/25 08:25 take am of surgery Any additional information?: Yes Meds taken in AM with sips of water?: Yes PONV PONV - content coordinator: PONV - content coordinator Female No 01/01/25 10:43 HX of Motion Sickness No 01/01/25 10:43 HX of N/V After Surgery No 01/01/25 10:43 Non-Smoker Yes 01/01/25 10:43 Duration of Surgery greater No 01/01/25 10:43 than 60 minutes Number of Risk Factors 1 01/01/25 10:43 PONV Score Low Risk 01/01/25 10:43 Any additional information?: No Height & Weight Height & Weight: Anesthesia: Height & Weight Height 5 ft 11 in 01/05/25 08:25 Weight: 91 kg 01/05/25 08:25 Body Mass Index (BMI) 27.9 01/05/25 08:25 Respiratory Assessment Respiratory Assessment - content coordinator: Respiratory Tract Infection Hx - content coordinator Hx Respiratory Tract Infection No 01/01/25 10:43 Any additional information?: No STOP Sleep Apnea STOP Sleep Apnea - content coordinator: STOP Sleep Apnea - content coordinator Hx Hypertension Yes: CONTROLLED ON MED 01/01/25 10:43 Hx Sleep Apnea No 01/01/25 10:43 CPAP BIPAP Do you snore loudly (louder No 01/01/25 10:43 than talking or can be heard Do you often feel tired/ No 01/01/25 10:43 fatigued/ sleepy during daytime? Has anyone observed you stop No 01/01/25 10:43 breathing during sleep? STOP Results Negative 01/01/25 10:43 QUESTION #5 FULL TEXT : Do you snore loudly (louder than talking or can be heard through closeddoors)? Any additional information?: No Tobacco Use History Tobacco Use History - content coordinator: Tobacco Use History - content coordinator Tobacco Use Smoking Status Current every day smoker 01/01/25 10:43 Hx Tobacco Use Yes 01/01/25 10:43 Years Smoking Packs Smoked per Day Smoking Cessation Date was within the last 15 years Hx Smoking Cessation Date Hx Smoking Cessation Counseling Any additional information?: No Hematologic Medial History Hematologic Hx - content coordinator: Hematologic Medical Hx - sprue knocker Hx of Blood Transfusion No 01/01/25 10:43 Hx of Transfusion in last 3 No 01/01/25 10:43 Months Date of Last Transfusion (if within last 3 months) Ever experience any problems No 01/01/25 10:43 with transfusion(s)? Specify any problems Hx of Preganancy in last 3 N/A 01/01/25 10:43 Months Nurse Filling Out Transfusion VCHRISTIN 01/01/25 10:43 & Questions: Date: 01/01/25 01/01/25 10:43 Time: 10:44 01/01/25 10:43 Patient unable to answer at this time (ie. confused, unrespo Any additional information?: No /Reproduction History /Reproductive History - content coordinator: /Reproductive Hx- content coordinator Hx Now Gestational Age (in weeks): EDC: Hx Hx Para Hx Section SAB Any additional information?: No PFSH Medical History Alcohol use Arthritis Back pain Gastric reflux Smoker Hypertension Acute bacterial prostatitis Kidney stones GI problem Bone fracture Home Medications ?Medication ?Instructions ?Recorded ?Last Taken ?Type omeprazole 20 mg capsule,delayed 20 mg PO QDAY 5 01/04/25 History release amlodipine 5 mg tablet 5 mg PO QDAY #90 tabs 01/05/25 Rx Allergy/AdvReac Type Severity Reaction Status Date / Time lisinopril AdvReac Ears Verified 01/05/25 08:21 Ringing, Hearing disturbance Family History Father Alcohol abuse Arthritis Hypertension Mother Alcohol abuse Sister Cancer, Onset Age: 48 brain tumor Surgical History (Updated 01/01/25 @ 10:43 by Laury Lopez) Hx of colonoscopy Social History adopted: No household members: significant other current occupational status: 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 Physical Exam Const alert and oriented x3 Resp normal respiratory effort, normal air movement and clear to auscultation bilaterally Cardio regular rate, regular rhythm, no murmurs and diaphoretic 01/05/25 0853 > Date _ Jose Lee MD Cosigner Signature: Date CC: ~ Signed [facility]02-11-2025 Evaluation note* Diagnosis Onset Date Resolution Status Admit Date Mid back pain noneactive December 082024 7:17am Immunization due noneactive December 08, 2024 7:17am Smokes cigarettes noneactive Februar y 2024 7:17am Chest pain in adult noneactive Febru elen 2024 7:17am Suspected sleep apnea noneactive Feb ruary 2024 7:17am Essential hypertension noneactive Fe bruary 2024 7:17am GERD (gastroesophageal reflux disease) noneactive December 08, 025 7:17am Hypertension chronic November 8:02am Encounter for screening for malignant neoplasm of colon acute Ricardo israel 2024 8:02am [facility] Work Phone: Consult note Author Jose Lee [facility] Note Date/Time January 05, 2025 8:5 3am [facility] Medical Records Department [address] [place] [address] Pre-Anesthesia Evaluation 01/05/25 0849 MR#: [id number] Acct: [id number] Name: SONNY SOUZA Rep #:[id number] : 1975 49 From: Jose Lee MD PCP: Dr. Marika Josue MD Status:REG SDC Y Race: C Location: [place] [address] ASA Classification* ASA Classification ASA Classification: 2 Assessment & Plan Anesthesia* Anesthesia Assessment Anesthesia Assessment: Discussed sedation and/or anesthesia options, risks, benefits, and alternatives with patient/parents/legal guardian/POA. Questions invited. The patient/parents/legal guardian/POA seems to understand and agrees to proceedwith anesthesia plan. Reviewed the physical assessment, medical history, allergy history and patient home medications list prior to surgery/procedure/anesthetic and documented any changes. Performed airway and anesthesia risk assessments. Anesthesia Type Anesthesia Type: General History Source History Obtained from:: Patient Anesthesia Focused Assessment* Temperature: 99.2 F Pulse Rate: 81 Blood Pressure: 165/92 Respiratory Rate: 16 Pulse Ox: 100 Oxygen Delivery Method: Room Air Airway Assessment Mouth opens: >3 cm Mallampati Score: II Teeth Condition: Chipped/Broken and Missing Neck Range of motion (ROM): Full ROM Comment: poor dentition Focused Labs Anesthesia Preop lab: CBC WBC 7.0 K/mm3 (4.4-11.0) 04/14/24 10:04/14/24 RBC 4.93 M/mm3 (4.6-6.2) 04/14/24 10:04/14/24 Hgb 15.9 g/dL (13.0-16.5) 04/14/24 10:04/14/24 Hct 45.9 % (40-54) 04/14/24 10:04/14/24 Plt Count 252 K/mm3 (150-450) 04/14/24 10:04/14/24 CHEMISTRY Potassium 4.1 mmol/L (3.5-5.1) 04/14/24 10:28 04/14/24 Sodium 139 mmol/L (136-145) 04/14/24 10:28 04/14/24 BUN 10 mg/dL (7-18) 04/14/24 10:28 04/14/24 Creatinine 0.97 mg/dL (0.70-1.30) 04/14/24 10:04/14/24 Glucose 99 mg/dL (74-106) 04/14/24 10:04/14/24 TSH 1.38 uIU/mL (0.358-3.74) 04/14/24 10: COAG Pre-Assessment Diagnosis/Proposed Procedure Planned Operative Procedure(s): Colonoscopy - Open Access Anesthesia History Anesthesia History - content coordinator: Anesthesia History - content coordinator Hx Hospitalization No 01/01/25 10:43 Any Problems With Anesthesia No 01/01/25 10:43 Cholinesterase deficiency No 01/01/25 10:43 You/Your Family Experience No 01/01/25 10:43 fever (hyperthermia) with Relationship Recent Exposure to Contagious No 01/05/25 08:25 Disease Does patient have nerve No 01/01/25 10:43 stimulator Patient instructed to have device shut off --Does patient have Pacemaker No 01/05/25 08:25 or ICD? When Was Last Pacemaker Check QUESTION #4 FULL TEXT: You/Your Family Experience fever (hyperthermia) with Anesthesia Any additional information?: No Last Oral Intake Last Oral intake: Last Oral Intake NPO since 06:00 01/05/25 08:25 Meds taken in AM with sips of Yes 01/05/25 08:25 water? Meds patient instructed to AMLODIPINE 01/05/25 08:25 take am of surgery Any additional information?: Yes Meds taken in AM with sips of water?: Yes PONV PONV - content coordinator: PONV - content coordinator Female No 01/01/25 10:43 HX of Motion Sickness No 01/01/25 10:43 HX of N/V After Surgery No 01/01/25 10:43 Non-Smoker Yes 01/01/25 10:43 Duration of Surgery greater No 01/01/25 10:43 than 60 minutes Number of Risk Factors 1 01/01/25 10:43 PONV Score Low Risk 01/01/25 10:43 Any additional information?: No Height & Weight Height & Weight: Anesthesia: Height & Weight Height 5 ft 11 in 01/05/25 08:25 Weight: 91 kg 01/05/25 08:25 Body Mass Index (BMI) 27.9 01/05/25 08:25 Respiratory Assessment Respiratory Assessment - content coordinator: Respiratory Tract Infection Hx - content coordinator Hx Respiratory Tract Infection No 01/01/25 10:43 Any additional information?: No STOP Sleep Apnea STOP Sleep Apnea - content coordinator: STOP Sleep Apnea - content coordinator Hx Hypertension Yes: CONTROLLED ON MED 01/01/25 10:43 Hx Sleep Apnea No 01/01/25 10:43 CPAP BIPAP Do you snore loudly (louder No 01/01/25 10:43 than talking or can be heard Do you often feel tired/ No 01/01/25 10:43 fatigued/ sleepy during daytime? Has anyone observed you stop No 01/01/25 10:43 breathing during sleep? STOP Results Negative 01/01/25 10:43 QUESTION #5 FULL TEXT : Do you snore loudly (louder than talking or can be heard through closed doors)? Any additional information?: No Tobacco Use History Tobacco Use History - content coordinator: Tobacco Use History - content coordinator Tobacco Use Smoking Status Current every day smoker 01/01/25 10:43 Hx Tobacco Use Yes 01/01/25 10:43 Years Smoking Packs Smoked per Day Smoking Cessation Date was within the last 15 years Hx Smoking Cessation Date Hx Smoking Cessation Counseling Any additional information?: No Hematologic Medial History Hematologic Hx - content coordinator: Hematologic Medical Hx - sprue knocker Hx of Blood Transfusion No 01/01/25 10:43 Hx of Transfusion in last 3 No 01/01/25 10:43 Months Date of Last Transfusion (if within last 3 months) Ever experience any problems No 01/01/25 10:43 with transfusion(s)? Specify any problems Hx of Preganancy in last 3 N/A 01/01/25 10:43 Months Nurse Filling Out Transfusion VCHRISTIN 01/01/25 10:43 & Questions: Date: 01/01/25 01/01/25 10:43 Time: 10:44 01/01/25 10:43 Patient unable to answer at this time (ie. confused, unrespo Any additional information?: No /Reproduction History /Reproductive History - content coordinator: /Reproductive Hx- content coordinator Hx Now Gestational Age (in weeks): EDC: Hx Hx Para Hx Section SAB Any additional information?: No PFSH Medical History Alcohol use Arthritis Back pain Gastric reflux Smoker Hypertension Acute bacterial prostatitis Kidney stones GI problem Bone fracture Home Medications ?Medication ?Instructions ?Recorded ?Last Taken ?Type omeprazole 20 mg capsule,delayed 20 mg PO QDAY 5 01/04/25 History release amlodipine 5 mg tablet 5 mg PO QDAY #90 tabs 01/05/25 Rx Allergy/AdvReac Type Severity Reaction Status Date / Time lisinopril AdvReac Ears Verified 01/05/25 08:21 Ringing, Hearing disturbance Family History Father Alcohol abuse Arthritis Hypertension Mother Alcohol abuse Sister Cancer, Onset Age: 48 brain tumor Surgical History (Updated 01/01/25 @ 10:43 by Laury Lopez) Hx of colonoscopy Social History adopted: No household members: significant other current occupational status: 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 Physical Exam Const alert and oriented x3 Resp normal respiratory effort, normal air movement and clear to auscultation bilaterally Cardio regular rate, regular rhythm, no murmurs and diaphoretic 01/05/25 0853 <Electronically signed by Jose Lee MD> Date _ Jose Urban Signature: Date CC: ~ Signed [facility] Work Phone: Consult note Author Justo Michaels [facility] Note Date/Time January 05, 2025 10: 06am [facility] Medical Records Department [address] [place] [address] Anesthesia Postop Eval I 01/05/25 1005 MR#: [id number] Acct: [id number] Name: SONNY SOUZA Rep #:[id number] : 1975 49 From: Justo Michaels PCP: Dr. Marika Josue MD Status:REG [facility] [place] Race: C Location: [place] [address] Anesthesia: Postop Eval I Current Vital Signs Temperature: 98.2 F Pulse Rate: 63 Blood Pressure: 131/89 Respiratory Rate: 16 Pulse Ox: 93 Oxygen Delivery Method: Room Air Assessment Airway patent: Yes Spontaneous unlabored respirations: Yes Mental status: Asleep nausea: No Vomiting: No Anesthesia Complication: No Fluid Hydration Crystalloid volume administer (ml): 90 Total IV fluid infused: 90 Progress Note Anesthesia document: Postop Eval 1 completed: Yes 01/05/25 1006 <Electronically signed by Justo Michaels > Date _ Justo Urban Signature: Date CC: ~ Signed [facility] Work Phone: Consult note Author Jose Lee [facility] Note Date/Time January 05, 2025 10: 39am [facility] Medical Records Department [address] [place] [address] Anesthesia Postop Eval II 01/05/25 1010 MR#: [id number] Acct: [id number] Name: SONNY SOUZA Rep #:[id number] : 1975 49 From: Jose Lee MD PCP: Dr. Marika Josue MD Status:REG [facility] Y Race: C Location: [facility] Anesthesia Postop Eval I Sum Postop Eval Completion status Anesthesia document: Postop Eval 1 completed: Yes Anesthesia Postop Eval I Summary Anesthesia Postop Eval I Summary: Anesthesia Postop Eval I: Assessment Summary Airway patent Yes 01/05/25 10:06 [email or web address] Spontaneous unlabored Yes 01/05/25 10:06 [email or web address] respirations Mental status Asleep 01/05/25 10:06 [email or web address] nausea No 01/05/25 10:06 [email or web address] Vomiting No 01/05/25 10:06 [email or web address] Anesthesia Postop Eval I: Fluid Summary Crystalloid volume administer 90 01/05/25 10:06 [email or web address] (ml) Colloids volume administered ( ml) Blood Product volume administered (ml) Total IV fluid infused 90 01/05/25 10:06 [email or web address] Anesthesia Postop Eval I: Summary Notes Anesthesia Complication No 01/05/25 10:06 [email or web address] Anesthesia Complication Comment: Post-operative progress note Anesthesia: Postop Eval II Evaluation Mental status: Awake and Calm Pain Level: 0 nausea: No Vomiting: No Complications Anesthesia Complication: No 01/05/25 1010 <Electronically signed by Jose Lee MD> Date _ Jose Lee MD Cosigner Signature: Date CC: ~ Signed [facility] Work Phone: Evaluation note* Diagnosis Onset Date Resolution Status Admit Date Smokes cigarettes noneactive May 062024 8:19am Suspected sleep apnea noneactive Apr 8:19am Essential hypertension noneactive 2024 8:19am GERD (gastroesophageal reflu x disease) noneactive May 06, 2025 8:19am Mid back pain noneactive May 06, 2025 8:19am Numbness and tingling noneactive Apr 8:19am Screening for cardiovascular condition noneactive May 06, 2025 8:19am [facility] Work Phone: History and physical note Author Mak Lombardi [facility] Note Date/Time January 05, 2025 9:2 1am [facility] Medical Records Department [address] [place] [address] History & Physical Exam 01/05/25 0916 MR#: [id number] Acct: [id number] Name: SONNY SOUZA Rep #:[id number] : 1975 49 From: Mak Lombardi MD PCP: Dr. Marika Josue MD Status:[facility] Location: [place] [address] HPI - General General Date of Admission: 01/05/25 Date of Service: 01/05/25 Chief Complaint: Colonoscopy HPI Narrative SONNY SOUZA, is a 49 M who presents for screening colonoscopy. Last colonoscopy was about 6 years ago. At that time he was having some diarrhea andwas diagnosed with microscopic colitis. He was placed on steroids and the symptoms resolved. He denies any recent symptoms or problems. No family history of colon polyps or colon cancer. [facility] Medical History Alcohol use Arthritis Back pain Gastric reflux Smoker Hypertension Acute bacterial prostatitis Kidney stones GI problem Bone fracture Home Medications ?Medication ?Instructions ?Recorded ?Last Taken ?Type omeprazole 20 mg capsule,delayed 20 mg PO QDAY 5 01/04/25 History release amlodipine 5 mg tablet 5 mg PO QDAY #90 tabs 01/05/25 Rx Allergy/AdvReac Type Severity Reaction Status Date / Time lisinopril AdvReac Ears Verified 01/05/25 08:21 Ringing, Hearing disturbance Family History Father Alcohol abuse Arthritis Hypertension Mother Alcohol abuse Sister Cancer, Onset Age: 48 brain tumor Surgical History Hx of colonoscopy Social History adopted: No household members: significant other current occupational status: 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 history of recent travel: No Smoking Status: Current every day smoker tobacco type: cigarettes and smokelesstobacco Smokeless tobacco user: chewing tobacco quit status: considering quitting alcohol intake: current alcohol intake frequency: 3 or more drinks per day details: 2-6 beer daily substance use type: does not use what type of physical activity do you participate in: none seatbelt use: always do you feel safe at home: Yes Vital Signs Vital Signs Vital Signs: 01/05/25 08:25 01/05/25 08:25 01/05/25 08:53 Temperature 99.2 F H 99.2 F H Temperature Source Temporal Pulse Rate 81 81 Respiratory Rate 16 16 Respiratory Pattern Normal Blood Pressure 165/92 H 165/92 H Blood Pressure Mean 116 Blood Pressure Source Monitor Blood Pressure Position Semi-Fowlers Blood Pressure Location Right Arm Pulse Ox 100 100 Oxygen Delivery Method Room Air Room Air Weight Weight: 200 lb 9.93 oz Body Mass Index (BMI) 27.9 Physical Exam Const alert, oriented x3 and no apparent distress Assessment & Plan Assessment/Plan (1) Encounter for screening for malignant neoplasm of colon: PLAN: Plan The patient is a 49-year-old male in need of a screening colonoscopy. His last colonoscopy was about 6 years ago. We discussed the details of the planned procedure and he wishes to proceed. This will begin momentarily Charges/Coding Visit Charges Inpatient E&M: 89175 Init Hosp L1 01/05/25920 <Electronically signed by Mak Lombardi MD> Cosigner Signature (if applicable): CC: Dr. Marika Josue MD; Dr. Mak Lombardi MD~ Signed [facility] Work Phone: Reason for referral (narrative)No reason for referral information [facility]WWy[facility]ot [facility] Work Phone: Summary Purpose Family History No Family History Records Found Relationship Condition Age at Onset Recorded Date/T nina father Alcohol abuse Unknown Arthritis Unknown Hypertension Unknown mother Alcohol abuse Unknown sister Malignant neoplasm 48 Advance Directives No Advanced Directives Records Found Advance Directive Response Recorded Date/ Time Living Will Yes January 01, 2025 11:43am Power of Medical Professionals Yes January 01 11:43am Name of Medical Power of Medical Professionals KAILEE SOUZA January 01, 2025 11:43am Chief Complaint and Reason for Visit Chief Complaint Admit Date Amb Documentation November 19, 2024 1 0:24am DISCUSS BP December 08, 2024 7:17am BP CHK December 22, 2024 8:02am Reason for Visit Admit Date Mid back pain December 08, 2024 7:17am Immunization due December 08, 2024 7:17am Smokes cigarettes December 08, 2024 7:17am Chest pain in adult December 08, 2024 7:17am Suspected sleep apnea December 08 7:17am Essential hypertension December 08 7:17am GERD (gastroesophageal reflux disease) F ebruary 2024 7:17am Hypertension December 22, 2024 8:02am Encounter for screening for malignant ne oplasm of colon January 05, 2025 8:02am Chief Complaint Admit Date fu May 06, 2025 8:19 am Reason for Visit Admit Date Smokes cigarettes May 06, 2025 8:19 am Suspected sleep apnea May 06, 2025 8: 19am Essential hypertension May 06, 2025 8 :19am GERD (gastroesophageal reflux disease) J 2024 8:19am Mid back pain May 06, 2025 8:19 am Numbness and tingling May 06, 2025 8: 19am Screening for cardiovascular condition J 2024 8:19am Reason for Visit Admit Date Smokes cigarettes May 06, 2025 8:19 am Suspected sleep apnea May 06, 2025 8: 19am Essential hypertension May 06, 2025 8 :19am GERD (gastroesophageal reflux disease) J 2024 8:19am Mid back pain May 06, 2025 8:19 am Screening for depression May 06, 2025 8:19am Numbness and tingling May 06, 2025 8: 19am Screening for cardiovascular condition J ariana 2024 8:19am Quit smoking within past year May 06, 2025 8:19am Additional Source Comments (unrecognized sect ion and content) No Status Records FoundNo Status Records FoundNo Status Records Found INFORMATION SOURCE (unrecogn ized section and content) DATE CREATED AUTHOR 04/23/2018 [facility] DATE CREATED AUTHOR AUTHOR'S ORGANIZ ATION 11/21/2024 [facility] DATE CREATED AUTHOR AUTHOR'S ORGANIZ ATION [facility]22/[facility] Care Teams (unrecognized sec tion and content) Team Status: Active Member Role Status Dates Dr. Marika Josue MD Primary Care Provider Active Team Status: Active Member Role Status Dates Dr. Marika Josue MD Primary Care Provider Active Start: November 19, 2024 Anjelica Lo Attending Provider Active Start: Benjie mathis 2024 Team Status: Inactive Member Role Status Dates Dr. Marika Josue MD Primary Care Provider Active Start: December 08, 2024 End: December 08, 2024 Dr. Marika Josue MD Attending Provider Active Start: December 08, 2024 End: December 08, 2024 Dr. Marika Josue MD Referring Provider Active Start: December 08, 2024 End: December 08, 2024 Team Status: Inactive Member Role Status Dates Dr. Marika Josue MD Primary Care Provider Active Start: December 22, 2024 End: December 22, 2024 Dr. Marika Josue MD Attending Provider Active Start: December 22, 2024 End: December 22, 2024 Dr. Marika Josue MD Referring Provider Active Start: December 22, 2024 End: December 22, 2024 Team Status: Inactive Member Role Status Dates Dr. Marika Josue MD Primary Care Provider Active Start: January 05, 2025 End: January 05, 2025 Dr. Marika Josue MD Referring Provider Active Start: January 05, 2025 End: January 05, 2025 Dr. Mak Lombardi MD Attending Provider Active Start: January 05, 2025 End: January 05, 2025 Team Status: Active Member Role Status Dates Dr. Marika Josue MD Primary Care Provider Active Start: January 05, 2025 Dr. Marika Josue MD Referring Provider Active Start: January 05, 2025 Dr. Mak Lombardi MD Attending Provider Active Start: January 05, 2025 Dr. Mak Lombardi MD Other Provider Active St art: January 05, 2025 Team Status: Active Member Role/Relationship Status Dates Dr. Marika Josue MD Primary Care Provider Active Team Status: Inactive Member Role/Relationship Status Dates Dr. Marika Josue MD Primary Care Provider Active Start: May 06, 2025 End: May 06, 2025 Dr. Marika Josue MD Attending Provider Active Start: May 06, 2025 End: May 06, 2025 Dr. Marika Josue MD Referring Provider Active Start: May 06, 2025 End: May 06, 2025 Team Status: Active Member Role/Relationship Status Dates Dr. Marika Josue MD Primary Care Provider Active Start: May 06, 2025 Dr. Marika Josue MD Attending Provider Active Start: May 06, 2025 Team Status: Inactive Member Role/Relationship Status Dates Dr. Marika Josue MD Primary Care Provider Active Start: May 06, 2025 End: May 06, 2025 Dr. Marika Josue MD Attending Provider Active Start: May 06, 2025 End: May 06, 2025 Goals (unrecognized section and content) Goals may be documented in a n alternate sectionGoals may be documented in an alternate section FOR RECORDS PERTAINING TO PATIENTS WHO ARE OR HAVE BEEN ENROLLED IN A CHEMICAL DEPENDENCY/SUBSTANCEABUSE PROGRAM, SOME INFORMATION MAY BE OMITTED. This clinical summary was aggregated from multiple sources. Caution should be exercised in using it in the provision of clinical care. This summary normalizes information from multiple sources, and as a consequence, information in this document may materially change the coding, format and clinical context of patient data. In addition, data may be omitted in some cases. CLINICAL DECISIONS SHOULD BE BASED ON THE PRIMARY CLINICAL RECORDS. [facility]. provides no warranty or guarantee of the accuracy or completeness of information in this document.
--- OUTSIDE RECORDS SUMMARY | 2025-06-02 06:44 | XMS RPT_ITS | CCD ---
Author Organization [facility] Care Team Providers Care Store Assistant Name Role Phone IMCA Unavailable Unavailable [facility] Unavailable Unavailable NO REFERRING DR Unavailable Unavailable Liat CRUZ, Dr. Hairston Primary Care Provider [phone] Anjelica Lo Attending Provider Unavailable Liat CRUZ, Dr. Hairston Attending Provider Dr. Marika Josue MD Referring Provider Maria C CRUZ, Dr. Mak Veras Attending Provider Maria C CRUZ, Dr. Mak Veras Other Provider [phone] Liat CRUZ, Dr. Hairston Primary Care Provider [phone] Liat CRUZ, Dr. Hairston Attending Provider Liat CRUZ, Dr. Hairston Referring Provider Mak Lombardi Attending Unavailable Liat, Marika Referring Unavailable Terlton, Marika Primary Care Unavailable Terlton, Marika Attending Unavailable Liat, Marika Primary Care Unavailable Terlton, Marika Attending Unavailable Liat, Marika Referring Unavailable Terlton, Marika Primary Care Unavailable Terlton, Marika Attending Unavailable Terlton, Marika Referring Unavailable Liat, Marika Primary Care Unavailable Liat, Marika Attending Unavailable Liat, Marika Referring Unavailable Liat, Marika Primary Care Unavailable Anjelica Lo Attending Unavailable Terlton, Marika Primary Care Unavailable Liat, Marika Referring Unavailable Terlton, Marika Primary Care Unavailable Mak Lombardi Consulting Unavailable Mak Lombardi Attending Unavailable Liat, Marika Attending Unavailable Liat, Marika Referring Unavailable Marika Josue Primary Care Unavailable Allergies Allergy Classification Reported Allergen(s) Allergy Type Date of Onset Reaction(s) Facility (3 sources) Lisinopril Drug Allergy 5 Ears Ringing, Hearing disturbance [facility] (1 source) Lisinopril Drug Allergy 5 [facility] Repository Medications Completed/Discontinued Medications Medication Drug [...] Auto (Unsp spec) [#/Vol] 2.32 10*3/uL 0.83-4.51 [facility] Absolute neutrophil countOrd ered By: Marika Josue on 05-06-2025 Neutrophils (Bld) [#/Vol] 3.5 10*3/uL 2.0-7.7 [facility] Anion gap in Serum or Plasma Ordered By: Marika Josue on 05-06-2025 Anion gap [Moles/Vol] 11 mmol/L - [facility] Automated lymphocyte count a s percentage of total leukocytesOrdered By: Marika Josue on 05-06-2025 Lymphocytes/100 WBC Auto (Unsp spec) 35.8 % - [facility] BUN/creatinine ratioOrdered By: Marika Josue on 05-06-2025 Urea nitrogen/Creatinine [Mass ratio] 9.8 mg/mg Low 10- [facility] Basophil percentageOrdered B y: Marika Josue on 05-06-2025 Basophils/100 WBC (Bld) 0.6 % 0- W [facility] Bilirubin, totalOrdered By: Marika Josue on 05-06-2025 Bilirubin [Mass/Vol] 0.38 mg/dL 0.00-1.30 [facility] Blood manual differential co mment interpretation (narrative result)Ordered By: Marika Josue on 05-06-2025 Manual differential comment Jed (Bld) [Interp] SCANNED [facility] Comment on above: AUTO DIFF OK CBC W/Diff, Automatedon 04-27 SMEAR COMMENT SCANNED Normal [facility] Comment on above: Result Comment: AUTO DIFF OK Performed By: #### L 100.0100, L500.4100, L500.4050 #### [facility] [address] [place], [place] [address]t[address]anie. [place], [place], [id number] Calculated very low density lipoprotein (VLDL) cholesterol measurementOrdered By: Marika Josue on 05-06-2025 Calculated very low density lipoprotein (VLDL) cholesterol measurement 17 mg/dL 5-40 [facility] Carbon dioxide, total [Moles /volume] in Central venous bloodOrdered By: Marika Josue on 05-06-2025 CO2 [Moles/Vol] 27.1 mmol/L 21.0-32.0 [facility] Chloride assayOrdered By: [place] Josue on 05-06-2025 Chloride [Moles/Vol] 104 mmol/L 98-108 [facility] Comprehensive Metabolic Prof ilon 05-06-2025 Albumin [Mass/Vol] 4.7 g/dL Normal 3.5-5.0 [facility] Comment on above: Performed By: #### L 100.0100, L500.4100, L500.4050 #### [facility] [address] [place], [address] Albumin/Globulin [Mass ratio] 1.9 {ratio} Normal 0.9-2.4 [facility] Comment on above: Performed By: #### L 100.0100, L500.4100, L500.4050 #### [facility] [address] [place], [address] ALK PHOS 74 U/L Normal 40-129 [facility] Comment on above: Performed By: #### L 100.0100, L500.4100, L500.4050 #### [facility] [address] [place], [address] ALT [Catalytic activity/Vol] 23 U/L Normal <=46 [facility] Comment on above: Performed By: #### L 100.0100, L500.4100, L500.4050 #### [facility] [address] [place], [address] AST [Catalytic activity/Vol] 19 U/L Normal <=37 [facility] Comment on above: Performed By: #### L 100.0100, L500.4100, L500.4050 #### [facility] [address] [place], [address] Bilirubin [Mass/Vol] 0.38 mg/dL Normal 0.00-1.30 [facility] Comment on above: Performed By: #### L 100.0100, L500.4100, L500.4050 #### [facility] [address] [place], [address] BUN/CRE 9.8 RATIO Low 10-20 [facility] Comment on above: Performed By: #### L 100.0100, L500.4100, L500.4050 #### [facility] [address] [place], [address] Calcium [Mass/Vol] 9.4 mg/dL Normal 7.6-11.0 [facility] Comment on above: Performed By: #### L 100.0100, L500.4100, L500.4050 #### [facility] [address] [place], [address] Chloride [Moles/Vol] 104 mmol/L Normal 98-108 [facility] Comment on above: Performed By: #### L 100.0100, L500.4100, L500.4050 #### [facility] [address] [place], [address] CO2 [Moles/Vol] 27.1 mmol/L Normal 21.0-32.0 [facility] Comment on above: Performed By: #### L 100.0100, L500.4100, L500.4050 #### [facility] [address] [place], [address] Creatinine [Mass/Vol] 1.03 mg/dL Normal 0.70-1.20 [facility] Comment on above: Performed By: #### L 100.0100, L500.4100, L500.4050 #### [facility] [address] [place], [address] GAP 11 Normal 5-15 [facility] Comment on above: Performed By: #### L 100.0100, L500.4100, L500.4050 #### [facility] [address] [place], [address] GFR/1.73 sq M.predicted among non-blacks MDRD (S/P/Bld) [Vol rate/Area] 88 mL/min/{1.73_m2} Normal >60 [facility] Comment on above: Result Comment: mL/m in/1.73m2 CKD-EPI Creatinine Equation (2020) Performed By: #### L 100.0100, L500.4100, L500.4050 #### [facility] [address] [place], [address] Globulin (S) [Mass/Vol] 2.5 g/dL Normal 2.2-4.2 [facility] Comment on above: Performed By: #### L 100.0100, L500.4100, L500.4050 #### [facility] [address] [place], [address] Glucose [Mass/Vol] 93 mg/dL Normal 70-99 [facility] Comment on above: Performed By: #### L 100.0100, L500.4100, L500.4050 #### [facility] [address] [place], [address] Potassium [Moles/Vol] 3.8 mmol/L Normal 3.3-5.1 [facility] Comment on above: Performed By: #### L 100.0100, L500.4100, L500.4050 #### [facility] [address] [place], [address] Sodium [Moles/Vol] 142 mmol/L Normal 133-145 [facility] Comment on above: Performed By: #### L 100.0100, L500.4100, L500.4050 #### [facility] [address] [place], [address] T PROT 7.3 g/dL Normal 5.9-8.4 [facility] Comment on above: Performed By: #### L 100.0100, L500.4100, L500.4050 #### [facility] [address] [place], [address] Urea nitrogen [Mass/Vol] 10 mg/dL Normal 4-19 [facility] Comment on above: Performed By: #### L 100.0100, L500.4100, L500.4050 #### [facility] [address] [place], [address] Eosinophil percentageOrdered By: Marika Josue on 05-06-2025 Eosinophils/100 WBC (Bld) 2.3 % 0-5 [facility] Erythrocyte distribution wid th ratioOrdered By: Marika Josue on 05-06-2025 Erythrocyte distribution width (RBC) [Ratio] 11.4 % Low 11.6-14.6 [facility] Erythrocyte distribution wid th standard deviationOrdered By: Marika Josue on 05-06-2025 Erythrocyte distribution width (RBC) [Ratio] 37.9 fl 35.1-43.9 [facility] Glomerular filtration rate ( GFR) estimation/1.73 sq m using serum, plasma, or whole bOrdered By: Marika Josue on 05-06-2025 GFR/1.73 sq M.predicted among non-blacks MDRD (S/P/Bld) [Vol rate/Area] 88 mL/min/{1.73_m2} >60 [facility] Comment on above: mL/min/1.73m2 CKD-EP I Creatinine Equation (2020) Hematocrit Auto (Bld) [Volum e fraction]Ordered By: Marika Josue on 05-06-2025 Hematocrit (Bld) [Volume fraction] 42.4 % 40-54 [facility] Hemoglobin measurementOrdere d By: Marika Josue on 05-06-2025 Hemoglobin (Bld) [Mass/Vol] 15.0 g/dL 13.0-16.5 [facility] Immature granulocytes/100 WB C Auto (Bld)Ordered By: Marika Josue on 05-06-2025 Immature granulocytes/100 WBC (Bld) 0.300 % 0.0-0.9 [facility] Comment on above: IG% - Immature Granu locytes (promyelocytes, myelocytes and metamyelocytes) > 1% indicates that a LEFT SHIFT is Present. LDL calc ser/plasOrdered By: Marika Josue on 05-06-2025 Cholesterol in LDL [Mass/Vol] 79 mg/dL [facility] Comment on above: Nnxlzetgjn=816-961 m g/dL & Higher Srtu=008 mg/dL or greater Laboratory - Chemistry and C hemistry - challengeOrdered By: Marika Josue on 05-06-2025 AST [Catalytic activity/Vol] 19 U/L <38 [facility] Lipid Profileon 05-06-2025 CHOL:HDL 3.19 Normal [facility] Comment on above: Performed By: #### L 100.0100, L500.4100, L500.4050 ####[facility] [address] [facility] [address] [place], [place], [id number]) Cholesterol [Mass/Vol] 140 mg/dL Normal <=200 [facility] Comment on above: Result Comment: Chol esterol level, Desirable <200 mg/dL Borderline high cholesterol 200-239 mg/dL High cholesterol >=240 mg/dL Recommendations of the NCEP Adult Treatment Panel for the following risk-cutoff thresholds for the [place] population. Performed By: #### L 100.0100, L500.4100, L500.4050 ####[facility] [address] [facility] [place], [address] Cholesterol in HDL [Mass/Vol] 44 mg/dL Normal [facility] Comment on above: Result Comment: Leora onal Cholesterol Education Program (NCEP) guidelines: <40 mg/dL: Low HDL-cholesterol (major risk factor for CHD) >= 60 mg/dL: High HDL-cholesterol (negative risk factor for CHD) HDL-cholesterol is affected by a number of factors, e.g. smoking, exercise, hormones, sex and age. Performed By: #### L 100.0100, L500.4100, L500.4050 ####[facility] [address] [place], [address] Cholesterol in LDL [Mass/Vol] 79 mg/dL Normal [facility] Comment on above: Result Comment: Bord hrgnjf=622-214 mg/dL Higher Apaj=858 mg/dL or greater Performed By: #### L 100.0100, L500.4100, L500.4050 ####[facility] [address] [place], [address] Cholesterol in VLDL [Mass/Vol] 17 mg/dL Normal 5-40 [facility] Comment on above: Performed By: #### L 100.0100, L500.4100, L500.4050 ####[facility] [address] [place], [address] Triglyceride [Mass/Vol] 86 mg/dL Normal [facility] Comment on above: Result Comment: The drugs N-Acetylcysteine and Metamizole may falsely depress this assay. Normal range: <150 mg/dL Borderline High: 150-199 mg/dL High: 200-499 mg/dL Very High: >500 mg/dL Performed By: #### L 100.0100, L500.4100, L500.4050 ####[facility] [address] [place], [address] MCV (mean corpuscular volume ) determinationOrdered By: Marika Josue on 05-06-2025 MCV (RBC) [Entitic vol] 90.2 fL 80-94 [facility] Mean corpuscular hemoglobin (MCH) determinationOrdered By: Marika Liat on 05-06-2025 MCH (RBC) [Entitic mass] 31.9 pg 27.0-32.0 [facility] Mean corpuscular hemoglobin concentration (MCHC) determinationOrdered By: Marika Josue on 05-06-2025 MCHC (RBC) [Mass/Vol] 35.4 g/dL 32-36 [facility] Mean platelet volume determi nationOrdered By: Marika Josue on 05-06-2025 Platelet mean volume (Bld) [Entitic vol] 9.5 fL 6.2-12.0 [facility] Monocyte percentageOrdered B y: Marika Josue on 05-06-2025 Monocytes/100 WBC (Bld) 7.1 % 0-10 [facility] Neutrophil percentageOrdered By: Marika Josue on 05-06-2025 Neutrophils/100 WBC (Bld) 53.9 % 47-70 [facility] Nucleated red blood cell per centageOrdered By: Marika Josue on 05-06-2025 Nucleated RBC/100 WBC (Bld) [Ratio] 0 % 0-5 [facility] Platelet countOrdered By: [place] Josue on 05-06-2025 Platelets (Bld) [#/Vol] 272 10*3/uL 150-450 [facility] Potassium measurement (mass/ volume)Ordered By: Marika Josue on 05-06-2025 Potassium (Unsp spec) [Mass/Vol] 3.8 mmol/L 3.3-5.1 [facility] RBC Auto (Bld) [#/Vol]Ordere d By: Marika Josue on 05-06-2025 RBC (Bld) [#/Vol] 4.70 10*6/uL 4.6-6.2 [facility] Screening total cholesterol/ high density lipoprotein (HDL) cholesterol ratioOrdered By: Marika Josue on 05-06-2025 Cholesterol.total/Choles terol in HDL [Mass ratio] 3.19 {ratio} [facility] Serum creatinine measurement (mass/volume)Ordered By: Marika Josue on 05-06-2025 Creatinine [Mass/Vol] 1.03 mg/dL 0.70-1.20 [facility] Serum globulin measurementOr dered By: Marika Josue on 05-06-2025 Globulin (S) [Mass/Vol] 2.5 g/dL 2.2-4.2 [facility] Serum glucose measurement (m ass/volume)Ordered By: Marika Josue on 05-06-2025 Glucose [Mass/Vol] 93 mg/dL 70-99 [facility] Serum or plasma alanine jasso otransferase (ALT) measurementOrdered By: Marika Josue on 05-06-2025 ALT [Catalytic activity/Vol] 23 U/L <47 [facility] Serum or plasma albumin nila urement (mass/volume)Ordered By: Marika Josue on 05-06-2025 Albumin [Mass/Vol] 4.7 g/dL 3.5-5.0 [facility] Serum or plasma albumin/glob ulin mass ratioOrdered By: Marika Josue on 05-06-2025 Albumin/Globulin [Mass ratio] 1.9 {ratio} 0.9-2.4 [facility] Serum or plasma alkaline jolie sphatase measurementOrdered By: Marika Josue on 05-06-2025 ALP [Catalytic activity/Vol] 74 U/L 40-129 [facility] Serum or plasma calcium nila urement (mass/volume)Ordered By: Marika Josue on 05-06-2025 Calcium [Mass/Vol] 9.4 mg/dL 7.6-11.0 [facility] Serum or plasma cholesterol in HDL measurement (mass/volume)Ordered By: Marika Josue on 05-06-2025 Cholesterol in HDL [Mass/Vol] 44 mg/dL >40 [facility] Comment on above: National Cholesterol Education Program (NCEP) guidelines:<40 mg/dL: Low HDL-cholesterol (major risk factor for CHD)>= 60 mg/dL: High HDL-cholesterol (negative risk factor for CHD)HDL-cholesterol is affected by a number of factors, e.g. smoking, exercise, hormones, sex and age. Serum or plasma cholesterol measurement (mass/volume)Ordered By: Marika Josue on 05-06-2025 Cholesterol [Mass/Vol] 140 mg/dL <201 [facility] Comment on above: Cholesterol level, D esirable <200 mg/dLBorderline high cholesterol 200-239 mg/dLHigh cholesterol >=240 mg/dLRecommendations of the NCEP Adult Treatment Panel for the following risk-cutoff thresholds for the [place] population. Serum or plasma urea nitroge n measurement (mass/volume)Ordered By: Marika Josue on 05-06-2025 Urea nitrogen [Mass/Vol] 10 mg/dL 4-19 [facility] Sodium levelOrdered By: Sanjeev Josue on 05-06-2025 Sodium [Moles/Vol] 142 mmol/L 133-145 [facility] Total proteinOrdered By: José Miguel Josue on 05-06-2025 Protein [Mass/Vol] 7.3 g/dL 5.9-8.4 [facility] Triglycerides measurementOrd ered By: Marika Josue on 05-06-2025 Triglyceride [Mass/Vol] 86 mg/dL <199 [facility] Comment on above: The drugs N-Acetylcy steine and Metamizole may falsely depress this assay. Normal range: <150 mg/dLBorderline High: 150-199 mg/dLHigh: 200-499 mg/dLVery High: >500 mg/dL White blood cell (WBC) count Ordered By: Marika Josue on 05-06-2025 WBC (Bld) [#/Vol] 6.5 10*3/uL 4.4-11.0 [facility] Internal Medicine Office Vis itoeleanor 05-05-2025 Internal Medicine Office Visit [facility] [address] [place] [address] [place] [address] OFFICE VISIT Date of Service: 05/06/25 MR#: [id number] Acct: [id number] Name: SONNY SOUZA Rep #: [id number] : 1975 Provider: Dr. 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 HPI HPI Details: SONNY SOUZA, is a [...] picking someth (more content not included)... Normal [facility] Colonoscopy Reporton 025 Colonoscopy Report [facility] Medical Records Department [address] [place] [address] Colonoscopy Report MR#: [id number] Acct: [id number] Name: SONNY SOUZA Rep #: [id number] : 1975 49 From: Mak Lombardi MD PCP: Dr. Marika Josue MD Status:REG [facility] Patient Name: Sonny Souza Procedure Date: 01/05/2025 [...] present medications. Procedure Code(s): --- Professional --- 77241, Colonoscopy, flexible; with biopsy, single or multiple Diagnosis Code(s): --- Professional --- Z12.11, Encounter for screening for malignant neoplasm of colon D12.0, Benign neoplasm of cecum K64.8, Other hemorrhoids CPT copyright 2021 [employer]. All rights reserved. The codes documented in this report are preliminary and upon prescriptionist review may be revised to meet current compliance requirements. Mak Lombardi MD 01/05/2025 10:02:16 AM This report has been signed electronically. Number of Addenda: 0 Note Initiated On: 01/05/2025 9:09 AM 01/05/25 1002 Date Mak Lombardi MD Cosigner Signature: Date (if indicated) CC: Dr. Marika Josue MD; Dr. Mak Lombardi MD Date Dictated: 01/05/2509 Date Transcribed: Retaining Room Cutter: SW Signed [facility] MR/POSTOP.ANEon 01-05-2025 MR/POSTOP.[facility] Medical Records Department [address] [place] [address] Anesthesia Postop Eval I 01/05/25 1005 MR#: [id number] Acct: [id number] Name: ROSALIESONNYSARAHI MEZA Rep #: [id number] : 1975 49 From: Justo Michaels PCP: Dr. Marika Josue MD Status:REG SDC Y Race: C Location: [address] Anesthesia: Postop Eval I Current Vital [...] Date Justo Urban Signature: Date CC: Signed [facility] MR/[id number] 01-05-2025 MR/POSTOPAN2 [facility] Medical Records Department [address] [place] [address] Anesthesia Postop Eval II 01/05/25 1010 MR#: [id number] Acct: [id number] Name: SONNY SOUZA Rep #: [id number] : 1975 49 From: Jose Lee MD PCP: Dr. Marika Josue MD Status:REG SDC Y Race: C Location: [place] [address] Anesthesia Postop Eval I Sum Postop Eval [...] MD Cosigner Signature: Date CC: Signed Normal [facility] Surgery Specimen Level Lawson 01-05-2025 Surgery Specimen Level IV -------- Patient Age/Sex Location Account Attending Physician -------- SONNY SOUZA 49/M EN [id number] Dr. Mak Lombardi MD -------- Specimen: [id number] Received: 01/05/25 Status: JOSS De La O Num: [id number] Spec Type: COLON BX Subm Dr: Dr. [...] is totally submitted in one cassette. 01/05/2025 CPT:46215 -------- Patient Age/Sex Location Account Attending Physician -------- ROSALIESONNY MEZA 49/M EN [id number] Dr. Mak Lombardi MD -------- Signed (signature on file) Dr. Miesha Bonilla MD 01/07/25 1755 -------- Normal [facility] Comment on above: Performed By: #### P EVARISTO #### [facility] [address] [place], [id number] Office Visit Reporton 2024 Office Visit Report [facility] [address] [place] [address] OFFICE VISIT Date of Service: 12/22/24 MR#: [id number] Acct: [id number] Patient: SONNY SOUZA Rep #: [id number] : 1975 Provider: JENNA NURSE Age/Sex: 49/M Location: [facility] Status: Signed Intake Vital Signs 12/08/24 [...] hypertension 12/22/24 1618 Date Marika Josue MD [facility] Signature: Date (if applicable) CC: Dr. Marika Josue MD [facility] Internal Medicine Office Vis solo 12-07-2024 Internal Medicine Office Visit [facility] [address] [place] [address] [address] [place], [place] [address] OFFICE VISIT Date of Service: 12/08/24 MR#: [id number] Acct: [id number] Name: ROSALIESONNY Rep #: [id number] : 1975 Provider: Dr. 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 Normal [facility] Basic metabolic 2000 panelon 11-17-2024 Anion gap [Moles/Vol] 11 mmol/L Normal 8-15 [facility] Comment on above: Order Comment: Speci men Type: BLOOD SPECIMEN Ordering Facility: [facility] Address: [address] [place] [address] Performed By: #### 2 4321-2 #### [employer] [facility] CLIA [id number] [address] [place] [address] [place] Calcium [Mass/Vol] 8.9 mg/dL Normal 8.5-10.2 [facility] Comment on above: Order Comment: Aroni naif Type: BLOOD SPECIMEN Ordering Facility: [facility] Address: [address] [place] [address] Performed By: #### 2 4321-2 #### [facility] CLIA [id number] [address] [place] [address] [place] Chloride [Moles/Vol] 105 mmol/L Normal 98-107 [facility] Comment on above: Order Comment: Speci men Type: BLOOD SPECIMEN Ordering Facility: [facility] Address: [address] [place] [address] Performed By: #### 2 4321-2 #### [employer] [facility] CLIA [id number] [address] [place] [address] [place] CO2 [Moles/Vol] 24 mmol/L Normal 22-30 [facility] Comment on above: Order Comment: Speci men Type: BLOOD SPECIMEN Ordering Facility: [facility] Address: [address] [place] [address] Performed By: #### 2 4321-2 #### [employer] [facility] CLIA [id number] [address] [place] [address] [place] Creatinine [Mass/Vol] 0.89 mg/dL Normal 0.73-1.22 [facility] Comment on above: Order Comment: Yazan disla Type: BLOOD SPECIMEN Ordering Facility: [facility] Address: [address] [place] [address] Performed By: #### 2 4321-2 #### [facility] CLIA [id number] [address] [place] [address] [place] Creatinine and Glomerular filtration rate.predicted panel (S/P/Bld) 104 mL/min/1.73m??? Normal >=60 [facility] Comment on above: Order Comment: Yazan disla Type: BLOOD SPECIMEN Ordering Facility: [facility] Address: [address] [place] [address] Result Comment: Margoth mated Glomerular Filtration Rate [...] GFR. Performed By: #### 2 4321-2 #### [facility] CLIA [id number] [address] [place] [address] [place] Glucose [Mass/Vol] 142 mg/dL High 74-99 [facility] Comment on above: Order Comment: Yazan disla Type: BLOOD SPECIMEN Ordering Facility: [facility] Address: [address] [place] [address] Result Comment: The [employer] (ADA) provides guidance for cutoff [...] Standards of Medical Care in Diabetes 2016, [employer]. Diabetes Care. 2016.39(Suppl 1). Performed By: #### 2 4321-2 #### [facility] CLIA [id number] [address] [place] [address] [place] Potassium [Moles/Vol] 4.0 mmol/L Normal 3.7-5.1 [facility] Comment on above: Order Comment: Speci men Type: BLOOD SPECIMEN Ordering Facility: [facility] Address: [address] [place] [address] Performed By: #### 2 4321-2 #### [facility] CLIA [id number] [address] [place] [address] [place] Sodium [Moles/Vol] 140 mmol/L Normal 136-144 [facility] Comment on above: Order Comment: Speci men Type: BLOOD SPECIMEN Ordering Facility: [facility] Address: [address] [place] [address] Performed By: #### 2 4321-2 #### [facility] CLIA [id number] [address] [place] [address] [place] Urea nitrogen [Mass/Vol] 11 mg/dL Normal 9-24 [facility] Comment on above: Order Comment: Speci men Type: BLOOD SPECIMEN Ordering Facility: [facility] Address: [address] [place] [address] Performed By: #### 2 4321-2 #### [facility] CLIA [id number] [address] [place] [address] [place] CBC panel Auto (Bld)on 11-17 Erythrocyte distribution width (RBC) [Ratio] 11.6 % Normal 11.5-15.0 [facility] Comment on above: Order Comment: Speci men Type: BLOOD SPECIMEN Ordering Facility: [facility] Address: [address] [place] [address] Performed By: #### 5 8410-2 #### [facility] CLIA [id number] [address] [place] [address] [facility] Hematocrit (Bld) [Volume fraction] 41.4 % Normal 39.0-51.0 [facility] Comment on above: Order Comment: Speci men Type: BLOOD SPECIMEN Ordering Facility: [facility] Address: [address] [place] [address] Performed By: #### 5 8410-2 #### [facility] CLIA [id number] [address] [place] [address] [place] [facility] Hemoglobin (Bld) [Mass/Vol] 14.5 g/dL Normal 13.0-17.0 [facility] Comment on above: Order Comment: Speci men Type: BLOOD SPECIMEN Ordering Facility: [facility] Address: [address] [place] [address] Performed By: #### 5 8410-2 #### [facility] CLIA [id number] [address] [place], [place] [address] [place] [address] [place] MCH (RBC) [Entitic mass] 32.1 pg Normal 26.0-34.0 [facility] Comment on above: Order Comment: Speci men Type: BLOOD SPECIMEN Ordering Facility: [facility] Address: [address] [place] [address] Performed By: #### 5 8410-2 #### [facility] CLIA [id number] [address] [place] [address] [place] MCHC (RBC) [Mass/Vol] 35.0 g/dL Normal 30.5-36.0 [facility] Comment on above: Order Comment: Speci men Type: BLOOD SPECIMEN Ordering Facility: [facility] Address: [address] [place] [address] Performed By: #### 5 8410-2 #### [facility] CLIA [id number] [address] [place] [address] [place] MCV (RBC) [Entitic vol] 91.6 fL Normal 80.0-100.0 [facility] Comment on above: Order Comment: Speci men Type: BLOOD SPECIMEN Ordering Facility: [facility] Address: [address] [place] [address] Performed By: #### 5 8410-2 #### [facility] CLIA [id number] [address] [place] [address] [place] Platelet mean volume (Bld) [Entitic vol] 9.0 fL Normal 9.0-12.7 [facility] Comment on above: Order Comment: Speci men Type: BLOOD SPECIMEN Ordering Facility: [facility] Address: [address] [place] [address] Performed By: #### 5 8410-2 #### [facility] CLIA [id number] [address] [place] [address] [place] Platelets (Bld) [#/Vol] 224 10*3/uL Normal 150-400 [facility] Comment on above: Order Comment: Speci men Type: BLOOD SPECIMEN Ordering Facility: [facility] Address: [address] [place] [address] Performed By: #### 5 8410-2 #### [facility] CLIA [id number] [address] [place] [address] [place] RBC (Bld) [#/Vol] 4.52 10*6/uL Normal 4.20-6.00 [facility] Comment on above: Order Comment: Speci men Type: BLOOD SPECIMEN Ordering Facility: [facility] Address: [address] [place] [address] Performed By: #### 5 8410-2 #### [facility] CLIA [id number] [address] [place] [address] [place] WBC (Bld) [#/Vol] 6.18 10*3/uL Normal 3.70-11.00 [facility] Comment on above: Order Comment: Speci men Type: BLOOD SPECIMEN Ordering Facility: [facility] Address: [address] [place] [address] Performed By: #### 5 8410-2 #### [facility] CLIA [id number] [address] [place] [address] [facility] ED NOTEon 11-17-2024 ED NOTE HNO ID: [id number] Author: DISHA SALINAS RN Service: Emergency Medicine [...] do anything else to help you? No [facility] ED NOTE HNO ID: [id number] Author: MIGUEL DELGADO RN Service: Emergency Medicine Author Type: Registered Nurse Type: ED Notes Filed: 11/17/2024 02:29 Note Text: Patient discharge instructions given to patient. Patient educated on discharge instructions. Patient denied having questions at this time regarding discharge instructions. Patient discharged home at this time. [facility] ED NOTE HNO ID: [id number] Author: MIGUEL DELGADO RN Service: Emergency Medicine Author Type: Registered Nurse Type: ED Notes Filed: 11/17/2024 02:27 Note Text: ED physician at bedside. [facility] ED NOTE HNO ID: [id number] Author: MIGUEL DELGADO RN Service: Emergency Medicine Author Type: Registered Nurse Type: ED Notes Filed: 11/17/2024 00:07 Note Text: ED Physician at bedside. [facility] ED PROV NOTEon 11-17-2024 ED PROV NOTE HNO ID: [id number] Author: FELIX SOTO MD Service: ? Author [...] MD - FELIX SOTO 11/17/24 0229 Normal [facility] EKGon 11-17-2024 Electrocardiogram Ventricular Rate : 8 5 BPM Atrial Rate : 85 BPM P-R Interval : 164 ms QRS Duration : 88 ms Q-T Interval : 378 ms QTC Calculation(Bazett) : 449 ms Calculated P Troy : 33 degrees Calculated R Troy : 2 degrees Calculated T Troy : 11 degrees NORMAL SINUS RHYTHM NORMAL ECG NO PREVIOUS ECGS AVAILABLE Confirmed by MD SOTO VINAYAK ([id number]) on 11/17/2024 10:35:32 AM NAME : SONNY SOUZA PID : [id number] : 1975 Gender : Male Race : ORD : Procedure Date : Nov 17 2024 00:12:08 Edit Date : Nov 17 2024 10:35:34 Diagnosis: NORMAL SINUS RHYTHM NORMAL ECG NO PREVIOUS ECGS AVAILABLE Confirmed by MD SOTO VINAYAK ([id number]) on 11/17/2024 10:35:32 AM Test Reason : Location : 191 : CARD ED Overread By : MD SOTO VINAYAK Edited By : MD SOTO VINAYAK Referred By : , Acquired by : KELL GIBBONS Normal [facility] HIGH SENSITIVITY TROPONIN T (INITIAL)on 11-17-2024 Troponin T.cardiac High sensitivity method [Mass/Vol] <6 Normal <12 [facility] Comment on above: Order Comment: Yazan disla Type: BLOOD SPECIMEN Ordering Facility: [facility] Address: [address] [place] [address] Performed By: #### L [id number] #### [facility] CLIA [id number] [address] [place] [address] HIGH SENSITIVITY TROPONIN T (SECOND)on 11-17-2024 Troponin T.cardiac High sensitivity method [Mass/Vol] <6 Normal <12 [facility] Comment on above: Order Comment: Yazan disla Type: BLOOD SPECIMEN Ordering Facility: [facility] Address: [address] [place] [address] Performed By: #### L [id number] #### [facility] CLIA [id number] [address] [facility] XR CHEST 2V FRONTAL/LATon XR CHEST [...] soft tissues: Unremarkable. IMPRESSION: No acute abnormality. Retaining Room Cutter: PSCAlanna Transcribe Date/Time: Nov 17 2024 1:07A Dictated by : ARIEL ALEJANDRO MD This examination was interpreted and the report reviewed and electronically signed by: ARIEL ALEJANDRO MD on Nov 17 2024 1:08AM EST [id number] Normal [facility] Vital Signs Date Time Vital Sign Value Performing Clinician Faci lity 05-06-2025 10:04-0400 Diastolic blood pressure 85 mm[Hg] Dr. Marika Josue MD Work Phone: [facility] 05-06-2025 10:04-0400 Systolic blood pressure 135 mm[Hg] Dr. Marika Josue MD Work Phone: [facility] 05-06-2025 08:28-0400 Body height 180.[address] Marika Josue MD Work Phone: [facility] 05-06-2025 08:28-0400 Body mass index (BMI) [Ratio] 28.1 kg/m2 Dr. Marika Josue MD Work Phone: [facility] 05-06-2025 08:28-0400 Body temperature 97.9 [degF] Dr. Marika Josue MD Work Phone: [facility] 05-06-2025 08:28-0400 Body weight 91.[address] Marika Josue MD Work Phone: [facility] 05-06-2025 08:28-0400 Diastolic blood pressure 98 mm[Hg] Dr. Marika Josue MD Work Phone: [facility] 05-06-2025 08:28-0400 Heart rate 72 /min Dr. Marika Josue MD Work Phone: [facility] 05-06-2025 08:28-0400 Respiratory rate 16 /min Dr. Marika Josue MD Work Phone: [facility] 05-06-2025 08:28-0400 SaO2% (BldA) [Mass fraction] 90 % Dr. Marika Josue MD Work Phone: [facility] 05-06-2025 08:28-0400 Systolic blood pressure 146 mm[Hg] Dr. Marika Josue MD Work Phone: [facility] 01-05-2025 10:25-0400 Body temperature 99.2 [degF] Dr. Marika Josue MD Work Phone: [facility] 01-05-2025 10:25-0400 Diastolic blood pressure 90 mm[Hg] Dr. Marika Josue MD Work Phone: [facility] 01-05-2025 10:25-0400 Heart rate 59 /min Dr. Marika Josue MD Work Phone: [facility] 01-05-2025 10:25-0400 Respiratory rate 16 /min Dr. Marika Josue MD Work Phone: [facility] 01-05-2025 10:25-0400 SaO2% (BldA) [Mass fraction] 97 % Dr. Marika Josue MD Work Phone: [facility] 01-05-2025 10:25-0400 Systolic blood pressure 126 mm[Hg] Dr. Marika Josue MD Work Phone: [facility] 01-05-2025 08:25-0400 Body height 180.[address] Marika Josue MD Work Phone: [facility] 01-05-2025 08:25-0400 Body mass index (BMI) [Ratio] 27.9 kg/m2 Dr. Marika Josue MD Work Phone: [facility] 01-05-2025 08:25-0400 Body weight [address] Marika Josue MD Work Phone: [facility] 12-22-2024 08:07-0500 Diastolic blood pressure 80 mm[Hg] Dr. Marika Josue MD Work Phone: [facility] 12-22-2024 08:07-0500 Systolic blood pressure 142 mm[Hg] Dr. Marika Josue MD Work Phone: [facility] 12-08-2024 08:34-0500 Diastolic blood pressure 98 mm[Hg] Dr. Marika Josue MD Work Phone: [facility] 12-08-2024 08:34-0500 Systolic blood pressure 164 mm[Hg] Dr. Marika Josue MD Work Phone: [facility] 12-08-2024 07:33-0500 Body mass index (BMI) [Ratio] 29.6 kg/m2 Dr. Marika Josue MD Work Phone: [facility] 12-08-2024 07:33-0500 Body temperature 96.6 [degF] Dr. Marika Josue MD Work Phone: [facility] 12-08-2024 07:33-0500 Body weight 96.[address] Marika Josue MD Work Phone: [facility] 12-08-2024 07:33-0500 Heart rate 76 /min Dr. Marika Josue MD Work Phone: [facility] 12-08-2024 07:33-0500 Respiratory rate 16 /min Dr. Marika Josue MD Work Phone: [facility] 12-08-2024 07:33-0500 SaO2% (BldA) [Mass fraction] 98 % Dr. Marika Josue MD Work Phone: [facility] 11-19-2024 10:56-0500 Body mass index (BMI) [Ratio] 26.4 kg/m2 Dr. Marika Josue MD Work Phone: [facility] 11-19-2024 10:56-0500 Body weight 86.[address] Marika Josue MD Work Phone: [facility] Encounters Encounter Date Encounter Type Care Provider Facility Start: 06-02-2025 ambulatory Mraika Josue Facility :[facility] Start: 05-06-2025 End: 05-06-[address] Marika Josue MD -[facility] Work Phone: Start: 05-06-2025 End: 05-06-[address] Marika Josue MD Work Phone: [facility] Start: 05-06-2025 End: 05-06-2025 ambulatory Marika Josue Facility:[facility] Start: 01-05-2025 ambulatory Marika Josue Facility :[facility] Start: 01-05-2025 Non-patient / Non-visit Dr. Mak Lombardi MD -[facility] Start: 01-05-2025 End: 01-05-2025 Admission to same day surgery center Dr. Mak Lombardi MD -[facility] Work Phone: Start: 01-05-2025 End: 01-05-[address] Marika Josue MD Work Phone: [facility] Work Phone: Start: 12-22-2024 End: 12-22-[address] Marika Josue MD -[facility] Work Phone: Start: 12-22-2024 End: 12-22-2024 ambulatory Marika Josue Facility:[facility] Start: 12-08-2024 End: 12-08-[address] Marika Josue MD -[facility] Work Phone: Start: 12-08-2024 End: 12-08-2024 ambulatory Marika Josue Facility:[facility] Start: 11-19-2024 Non-patient / Non-visit Dr. Shannan CRUZ Work Phone: -[facility] Work Phone: Start: 11-19-2024 ambulatory Anjelica Wally Facility:[facility] Start: 11-17-2024 Emergency department patient visit Facility:[facility] Start: 09-11-2016 End: 09-12-2016 [facility] Procedures Date Procedure Procedure Detail Performing Clinician Start: 01-05-[address] Marika Josue MD Work Phone: Plan of Treatment Date Care Activity Detail Author Start: 06-02-2025 [facility] Start: 05-06-2025 CBC W Auto Different ial panel - Blood [facility] Start: 05-06-2025 Comprehensive metabo lic 2000 panel - Serum or Plasma [facility] Start: 05-06-2025 Lipid 1996 panel - Serum or Plasma [facility] Start: 01-05-2025 Patient discharge [facility] Alanine aminotransfe rase [Enzymatic activity/volume] in Serum or Plasma [facility] Albumin [Mass/volume ] in Serum or Plasma [facility] Alkaline phosphatase [Enzymatic activity/volume] in Serum or Plasma [facility] Anion gap in Serum or Plasma [facility] Bilirubin, total measurement [facility] BUN/Creatinine ratio [facility] Calcium [Mass/volume ] in Serum or Plasma [facility] Carbon dioxide, tota l [Moles/volume] in Central venous blood [facility] Cholesterol [Mass/vo lume] in Serum or Plasma [facility] Cholesterol in HDL [ Mass/volume] in Serum or Plasma [facility] Colonoscopy [facility] Creatinine [Mass/vol ume] in Serum or Plasma [facility] Erythrocyte mean cor puscular volume determination [facility] Glucose [Mass/volume ] in Serum or Plasma [facility] Hematocrit [Volume F raction] of Blood [facility] Hemoglobin [Mass/volume] in Blood [facility] Leukocytes [#/volume] in Blood [facility] Low density lipoprot ein cholesterol measurement [facility] Mean corpuscular hem oglobin concentration determination [facility] Mean corpuscular hem oglobin determination [facility] Measurement of renal function [facility] Neutrophil count [facility] Neutrophil percent d ifferential count [facility] Patient referral [facility] Work Phone: Platelets [#/volume] in Blood [facility] Potassium measurement [facility] Red blood cell count [facility] Red cell distributio n width determination [facility] Serum chloride measurement [facility] Sodium measurement [facility] Tobacco use cessation education [facility] Total cholesterol:HD L ratio measurement [facility] Total protein measurement [facility] Triglycerides measurement [facility] Urea nitrogen [Mass/ volume] in Serum or Plasma [facility] VLDL cholesterol measurement [facility] XR Lumbar spine 2 or 3 Views [facility] XR Thoracic spine 4 Views [facility] Immunizations Immunization Date Immunization Notes Care Provider Fa [facility] 12-08-[address] Marika Josue MD Work Phone: [facility] 04-14-[address] Marika Josue MD Work Phone: [facility] 10-28-2014 tetanus toxoid, redu shruthi diphtheria toxoid, and acellular pertussis vaccine, adsorbed Dr. Marika Josue MD Work Phone: [facility] Payers Date Payer Category Payer Self-pay 2012 Unknown [id number] Unknown [id number] 2.16.8 [id number] Unknown [id number] 2.16.8 [id number] Unknown [id number] 2.16.8 [id number] Unknown [id number] 2.16.8 [id number] Unknown [id number] 2.16.8 [id number] Unknown [id number] 2.16.8 [id number] Unknown [id number] 2.16.8 [id number] Unknown [id number] 2.16.8 [id number] Social History Date Type Detail Facility Start: [facility] Start: 01-05-2025 Sex Male (finding) [facility] Start: 1975 Sex Assigned At Male [facility] Start: 05-06-2025 [facility] (finding[facility] Goals Date Patient Goal Desired Activity /State Mental Status Date Assessment Result Facility 01-05-2025 Cognitive function [facility] Work Phone: Clinical Notes 12-08-2024 to 05-06-2025 [...] past year noneactive May 06, 2025 8:19am [facility] Work Phone: 1(299) 782-279603-11-2025 Consult note [facility] Medical Records Department [address] [place] [address] Anesthesia Postop Eval II 01/05/25 1010 MR#: [id number] Acct: [id number] Name: SONNY SOUZA Rep #:[id number] : 1975 49 From: Jose Lee MD PCP: Dr. Marika Josue MD Status:REG SDC Y Race: C Location: [place] [address]- Anesthesia Postop Eval I Sum Postop Eval [...] Jose Pattersonigngreg Signature: Date CC: ~ Signed [facility]03-11-2025 Consult note [facility] Medical Records Department [address] [place] [address] Anesthesia Postop Eval I 01/05/25 1005 MR#: [id number] Acct: [id number] Name: SONNY SOUZA Rep #:[id number] : 1975 49 From: Justo Michaels PCP: Dr. Marika Josue MD Status:REG SDC Y Race: C Location: [place] [address] Anesthesia: Postop Eval I Current Vital Signs [...] Justo Urban Signature: Date CC: ~ Signed [facility]03-11-2025 Procedure note [facility] Medical Records Department [address] [place] [address] Operative Report - CC Letter MR#: [id number] Acct: [id number] Name: SONNY SOUZA Rep #:[id number] : 1975 49 From: Mak Lombardi MD PCP: Dr. Marika Josue MD Status:REG [facility] 01/05/2025 Marika Josue Md Re : Colonoscopy [...] 01/05/25 1002 Date _ Mak Lombardi MD [facility] Signature: Date (if indicated) CC: Dr. Marika Josue MD; Dr. Mak Lombardi MD ~ Date Dictated: 01/05/25908 Date Transcribed: Retaining Room Cutter: SW Signed [facility]03-11-2025 Procedure note [facility] Medical Records Department [address] [place] [address] Colonoscopy Report MR#: [id number] Acct: [id number] Name: SONNY SOUZA Rep #:[id number] : 1975 49 From: Mak Lombardi MD PCP: Dr. Marika Josue MD Status:REG [facility] Patient Name: Sonny Souza Procedure Date: 01/05/2025 [...] present medications. Procedure Code(s): --- Professional --- 37162, Colonoscopy, flexible; with biopsy, single or multiple Diagnosis Code(s): --- Professional --- Z12.11, Encounter for screening for malignant neoplasm of colon D12.0, Benign neoplasm of cecum K64.8, Other hemorrhoids CPT copyright 2021 [employer]. All rights reserved. The codes documented in this report are preliminary and upon prescriptionist review may be revised to meet current compliance requirements. Mak Lombardi MD 01/05/2025 10:02:16 AM This report has been signed electronically. Number of Addenda: 0 Note Initiated On: 01/05/2025 9:09 AM 01/05/25 1002 Date _ Mak Lombardi MD Cosigner Signature: Date (if indicated) CC: Dr. Marika Josue MD; Dr. Mak Lombardi MD ~ Date Dictated: 01/05/25 0909 Date Transcribed: Retaining Room Cutter: JELLY Rosenberg [facility]03-11-2025 History and physical note [facility] Medical Records Department [address] [place] [address] History & Physical Exam 01/05/25915 MR#: [id number] Acct: [id number] Name: SONNY SOUZA Rep #:[id number] : 1975 49 From: Mak Lombardi MD PCP: Dr. Marika Josue MD Status:[facility] Location: [place] [address] HPI - General General Date of Admission: [...] history of colon polyps or colon cancer. [facility] Medical History Alcohol use Arthritis Back pain [...] willbegin momentarily Charges/Coding Visit Charges Inpatient E&M: 10596 Init Hosp L1 01/05/25 0921 Cosigner Signature (if applicable): CC: Dr. Marika Josue MD; Dr. Mak Lombardi MD~ Signed [facility]03-11-2025 [facility] Medical Records Department [address] [place] [address] History Physical Exam 01/05/25915 MR#: [id number] Acct: [id number] Name: SONNY SOUZA Rep #: [id number] : 1975 49 From: Mak Lombardi MD PCP: Dr. Marika Josue MD Status:[facility] Location: [place] [address] HPI - General General Date of Admission: [...] history of colon polyps or colon cancer. [facility] Medical History Alcohol use Arthritis Back pain [...] momentarily Charges/Coding Visit Charges Inpatient E M: 81516 Init Hosp L1 01/05/25 0921 Cosigner Signature (if applicable): CC: Dr. Marika Josue MD; Dr. Mak Lombardi MD [facility]03-11-2025 Consult note [facility] Medical Records Department [address] [place] [address] Pre-Anesthesia Evaluation 01/05/25 0849 MR#: [id number] Acct: [id number] Name: SONNY SOUZA Rep #:[id number] : 1975 49 From: Jose Lee MD PCP: Dr. Marika Josue MD Status:REG SD Y Race: C Location: [place] [address] ASA Classification* ASA Classification ASA Classification: 2 [...] Open Access Anesthesia History Anesthesia History - lab intern: Anesthesia History - lab intern Hx Hospitalization No 01/01/25 10:43 Any Problems [...] sips of water?: Yes PONV PONV - lab intern: PONV - lab intern Female No 01/01/25 10:43 HX of Motion [...] 01/05/25 08:25 Respiratory Assessment Respiratory Assessment - lab intern: Respiratory Tract Infection Hx - lab intern Hx Respiratory Tract Infection No 01/01/25 10:43 Any additional information?: No STOP Sleep Apnea STOP Sleep Apnea - lab intern: STOP Sleep Apnea - lab intern Hx Hypertension Yes: CONTROLLED ON MED 01/01/25 [...] Tobacco Use History Tobacco Use History - lab intern: Tobacco Use History - lab intern Tobacco Use Smoking Status Current every day smoker 01/01/25 10:43 Hx Tobacco Use Yes 01/01/25 10:43 Years Smoking Packs Smoked per Day Smoking Cessation Date was within the last 15 years Hx Smoking Cessation Date Hx Smoking Cessation Counseling Any additional information?: No Hematologic Medial History Hematologic Hx - lab intern: Hematologic Medical Hx - 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 surgeon Hx of Blood Transfusion No 01/01/25 10:43 [...] information?: No /Reproduction History /Reproductive History - lab intern: /Reproductive Hx- lab intern Hx Now Gestational Age (in weeks): EDC: [...] MD Cosigner Signature: Date CC: ~ Signed [facility]02-11-2025 Evaluation note* Diagnosis Onset Date Resolution [...] of colon acute Ricardo israel 2024 8:02am [facility] Work Phone: Consult note Author Jose Lee [facility] Note Date/Time January 05, 2025 8:5 3am [facility] Medical Records Department [address] [place] [address] Pre-Anesthesia Evaluation 01/05/25 0849 MR#: [id number] Acct: [id number] Name: SONNY SOUZA Rep #:[id number] : 1975 49 From: Jose Lee MD PCP: Dr. Marika Josue MD Status:REG SDC Y Race: C Location: [place] [address] ASA Classification* ASA Classification ASA Classification: 2 [...] Open Access Anesthesia History Anesthesia History - lab intern: Anesthesia History - lab intern Hx Hospitalization No 01/01/25 10:43 Any Problems [...] sips of water?: Yes PONV PONV - lab intern: PONV - lab intern Female No 01/01/25 10:43 HX of Motion [...] 01/05/25 08:25 Respiratory Assessment Respiratory Assessment - lab intern: Respiratory Tract Infection Hx - lab intern Hx Respiratory Tract Infection No 01/01/25 10:43 Any additional information?: No STOP Sleep Apnea STOP Sleep Apnea - lab intern: STOP Sleep Apnea - lab intern Hx Hypertension Yes: CONTROLLED ON MED 01/01/25 [...] Tobacco Use History Tobacco Use History - lab intern: Tobacco Use History - lab intern Tobacco Use Smoking Status Current every day smoker 01/01/25 10:43 Hx Tobacco Use Yes 01/01/25 10:43 Years Smoking Packs Smoked per Day Smoking Cessation Date was within the last 15 years Hx Smoking Cessation Date Hx Smoking Cessation Counseling Any additional information?: No Hematologic Medial History Hematologic Hx - lab intern: Hematologic Medical Hx - 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 surgeon Hx of Blood Transfusion No 01/01/25 10:43 [...] information?: No /Reproduction History /Reproductive History - lab intern: /Reproductive Hx- lab intern Hx Now Gestational Age (in weeks): EDC: [...] Jose Urban Signature: Date CC: ~ Signed [facility] Work Phone: Consult note Author Justo Michaels [facility] Note Date/Time January 05, 2025 10: 06am [facility] Medical Records Department [address] [place] [address] Anesthesia Postop Eval I 01/05/25 1005 MR#: [id number] Acct: [id number] Name: SONNY SOUZA Rep #:[id number] : 1975 49 From: Justo Michaels PCP: Dr. Marika Josue MD Status:REG [facility] Y Race: C Location: [place] [address] Anesthesia: Postop Eval I Current Vital Signs [...] Justo Urban Signature: Date CC: ~ Signed [facility] Work Phone: Consult note Author Jose Lee [facility] Note Date/Time January 05, 2025 10: 39am [facility] Medical Records Department [address] [place] [address] Anesthesia Postop Eval II 01/05/25 1010 MR#: [id number] Acct: [id number] Name: SONNY SOUZA Rep #:[id number] : 1975 49 From: Jose Lee MD PCP: Dr. Marika Josue MD Status:REG SDC Y Race: C Location: [facility]-1 Anesthesia Postop Eval I Sum Postop Eval [...] MD Cosigner Signature: Date CC: ~ Signed [facility] Work Phone: Evaluation note* Diagnosis Onset Date Resolution Status Admit Date Smokes cigarettes noneactive May 062024 8:19am Suspected sleep apnea noneactive Apr 8:19am Essential hypertension noneactive 2024 8:19am GERD (gastroesophageal reflu x disease) noneactive May 06, 2025 8:19am Mid back pain noneactive May 06, 2025 8:19am Numbness and tingling noneactive Apr 8:19am Screening for cardiovascular condition noneactive May 06, 2025 8:19am [facility] Work Phone: History and physical note Author Mak Lombardi [facility] Note Date/Time January 05, 2025 9:2 1am [facility] Medical Records Department [address] [place] [address] History & Physical Exam 01/05/25 0916 MR#: [id number] Acct: [id number] Name: SONNY SOUZA Rep #:[id number] : 1975 49 From: Mak Lombardi MD PCP: Dr. Marika Josue MD Status:[facility] Location: [place] [address] HPI - General General Date of Admission: [...] history of colon polyps or colon cancer. [facility] Medical History Alcohol use Arthritis Back pain [...] begin momentarily Charges/Coding Visit Charges Inpatient E&M: 14038 Init Hosp L1 01/05/25920 <Electronically signed by Mak Lombardi MD> Cosigner Signature (if applicable): CC: Dr. Marika Josue MD; Dr. Mak Lombardi MD~ Signed [facility] Work Phone: Reason for referral (narrative)No reason for referral information [facility] Work Phone: Summary Purpose Family History No Family History Records Found Relationship Condition Age at Onset Recorded Date/T nina father Alcohol abuse Unknown Arthritis Unknown Hypertension Unknown mother Alcohol abuse Unknown sister Malignant neoplasm 48 Advance Directives No Advanced Directives Records Found Advance Directive Response Recorded Date/ Time Living Will Yes January 01, 2025 11:43am Power of Airport Operations Manager Yes January 01 11:43am Name of Medical Power of Airport Operations Manager KAILEE SOUZA January 01, 2025 11:43am Chief [...] 8: 19am Screening for cardiovascular condition J arinaa 2024 8:19am Quit smoking within past year May 06, 2025 8:19am Additional Source Comments (unrecognized sect ion and content) No Status Records FoundNo Status Records FoundNo Status Records Found INFORMATION SOURCE (unrecogn ized section and content) DATE CREATED AUTHOR 04/23/2018 [facility] DATE CREATED AUTHOR AUTHOR'S ORGANIZ ATION 11/21/2024 [facility] DATE CREATED AUTHOR AUTHOR'S ORGANIZ ATION 05/22/20[facility] Care Teams (unrecognized sec tion and content) [...] BE BASED ON THE PRIMARY CLINICAL RECORDS. [facility] [employer] [facility]. provides no warranty or guarantee of the accuracy or completeness of information in this document.
--- NOTE | 2025-06-02 08:30 | RAD_ITS ---
PROCEDURE: THORACIC SPINE 3 VIEWS 06/02/2025 REASON FOR EXAM: BACK PAIN TECHNIQUE: THORACIC SPINE 3 VIEWS COMPARISON: None. RAD/Thoracic Spine 3 Views IMPRESSION: Mild degenerative changes are seen in the thoracic spine, most prominent in the lower portion thereof. No fracture, subluxation, or paraspinous line widening is seen. Reading Location: [place] [address]
--- NOTE | 2025-06-02 08:30 | RAD_ITS ---
PROCEDURE: LUMBAR SPINE 2 OR 3 VIEWS 06/02/2025 REASON FOR EXAM: BACK PAIN TECHNIQUE: LUMBAR SPINE 2 OR 3 VIEWS COMPARISON: None. RAD/Lumbar Spine 2 or 3 Views IMPRESSION: Mild aortic calcification is seen. Minimal sacroiliac joint degenerative changes are noted. Mild degenerative disc disease is seen at L1-L2, without definite associated di sc space narrowing. Moderately severe L5-S1 degenerative disc disease is seen, with moderately daniel re disc space narrowing and mild retrolisthesis of L5 upon S1. No evidence of spondylolysis. Lower lumbar posterior facet hypertrophy is also seen. No acute osseous change is evident. Reading Location: [place] [address]
--- NOTE | 2025-06-02 08:30 | RAD_ITS ---
PROCEDURE: LUMBAR SPINE 2 OR 3 VIEWS 06/02/2025 REASON FOR EXAM: BACK PAIN TECHNIQUE: LUMBAR SPINE 2 OR 3 VIEWS COMPARISON: None. RAD/Lumbar Spine 2 or 3 Views IMPRESSION: Mild aortic calcification is seen. Minimal sacroiliac joint degenerative changes are noted. Mild degenerative disc disease is seen at L1-L2, without definite associated di sc space narrowing. Moderately severe L5-S1 degenerative disc disease is seen, with moderately daniel re disc space narrowing and mild retrolisthesis of L5 upon S1. No evidence of spondylolysis. Lower lumbar posterior facet hypertrophy is also seen. No acute osseous change is evident. Reading Location: [place] [address]
--- NOTE | 2025-06-02 08:30 | RAD_ITS ---
PROCEDURE: THORACIC SPINE 3 VIEWS 06/02/2025 REASON FOR EXAM: BACK PAIN TECHNIQUE: THORACIC SPINE 3 VIEWS COMPARISON: None. RAD/Thoracic Spine 3 Views IMPRESSION: Mild degenerative changes are seen in the thoracic spine, most prominent in the lower portion thereof. No fracture, subluxation, or paraspinous line widening is seen. Reading Location: [place] [address]
--- NOTE | 2025-06-02 09:45 | NEURO ---
NCS and/or EMG Patient Report Ordering Doctor: Marika Josue DATE OF SERVICE: 06/02/25 Sonny presents for electrodiagnostic testing of the lower limbs. He reports numbness and tingling in the feet, which occurs intermittently. Electrodiagnostic findings: Right and left peroneal motor responses are within normal limits. Normal tibial motor response bilaterally. Tibial and peroneal F?waves are within normal limits. Prolonged sural latency is noted bilaterally with reduced conduction velocity on the right side. Normal superficial peroneal and medial plantar responses. Prolonged H?reflexes noted bilaterally. Needle EMG testing was performed the lower limbs. All muscles tested showed no evidence of denervation with normal motor unit action potentials. Electrodiagnostic impression: This is an abnormal study of the lower limbs 1. Electrodiagnostic findings are suggestive of mild sensory polyneuropathy, as evidenced by prolonged sural latencies and H-reflexes. 2. There is no electrodiagnostic evidence for lumbosacral radiculopathy Multi Select Codes Neurology Neurology Interp Codes: 64234-26 Musc test done w/n test comp (interp) (2) and 88874-41 Nrv cndj test 11-12 studies (interp)
--- NOTE | 2025-06-02 09:45 | NEURO ---
NCS and/or EMG Patient Report Ordering Doctor: Marika Josue DATE OF SERVICE: 06/02/25 Sonny presents for electrodiagnostic testing of the lower limbs. He reports numbness and tingling in the feet, which occurs intermittently. Electrodiagnostic findings: Right and left peroneal motor responses are within normal limits. Normal tibial motor response bilaterally. Tibial and peroneal F?waves are within normal limits. Prolonged sural latency is noted bilaterally with reduced conduction velocity on the right side. Normal superficial peroneal and medial plantar responses. Prolonged H?reflexes noted bilaterally. Needle EMG testing was performed the lower limbs. All muscles tested showed no evidence of denervation with normal motor unit action potentials. Electrodiagnostic impression: This is an abnormal study of the lower limbs 1. Electrodiagnostic findings are suggestive of mild sensory polyneuropathy, as evidenced by prolonged sural latencies and H-reflexes. 2. There is no electrodiagnostic evidence for lumbosacral radiculopathy Multi Select Codes Neurology Neurology Interp Codes: 20222-91 Musc test done w/n test comp (interp) (2) and 64106-51 Nrv cndj test 11-12 studies (interp)
== END | disposition home or self-care (01) ==
PROVIDERS: PCP Internal Medicine; Referring Provider Internal Medicine; Visit Provider Internal Medicine
DX: M54.9 Dorsalgia, unspecified (principal); R20.0 Anesthesia of skin; R20.2 Paresthesia of skin
CPT/HCPCS: 72072; 72100; 95886; 95912

== ENCOUNTER → 2025-07-07 | Outpatient (CLI) | payer BC, SELFPAY ==
--- NOTE | 2025-07-07 07:06 | MRI_ITS ---
PROCEDURE: SPINE LUMBAR (ROUTINE) 07/07/2025 REASON FOR EXAM: PAIN, NUMBNESS/TINGLING IN FEET. Low-back pain radiating to the bilateral lower extremities, for proximally 2 years. No known injury. TECHNIQUE: Procedure Code: MRISPL Modality: MR Procedure: SPINE LUMBAR (ROUTINE) COMPARISON: Lumbar spine series of 06/14/2025. FINDINGS: Vertebrae: Intact. No abnormal signal is seen. Alignment: No evidence of spondylolysis. Moderate retrolisthesis of L5 upon S1 is seen. Also at L5-S1 is seen significant disc degeneration with moderate to moderately severe disc space narrowing. Conus Medullaris: Unremarkable, terminating at the inferior L1 level. L1-2: Unremarkable L2-3: Unremarkable L3-4: Mild posterior facet and ligamentum flavum hypertrophy is seen. No significant spinal canal stenosis or neural foraminal narrowing is seen. L4-5: Mild posterior facet and ligamentum flavum hypertrophy is noted, [id number]. A very mild right lateral disc bulge is noted. No definite neural foraminal narrowing is seen. No spinal canal stenosis is identified. L5-S1: At this level of moderate retrolisthesis, an uncovered disc is noted. Mild inferior L5 vertebral body osteophytosis is also seen. At least mild asymmetric left neural foraminal narrowing is noted. No significant spinal canal stenosis is seen. Sacrum: Mild degenerative changes seen bilaterally upon limited imaging. MRI/Spine Lumbar (Routine) IMPRESSION: 1. Lower lumbar multilevel degenerative disc disease, as described. 2. Moderate retrolisthesis of L5 on S1 Reading Location: [place] [address]
--- OUTSIDE RECORDS SUMMARY | 2025-07-07 07:14 | XMS RPT_ITS | CCD ---
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 [Mass/Vol] 140 mg/dL Normal <=200 [facility] Comment on above: Result Comment: Chol esterol level, Desirable <200 mg/dL Borderline high cholesterol 200-239 mg/dL High cholesterol >=240 mg/dL Recommendations of the NCEP Adult Treatment Panel for the following risk-cutoff thresholds for the [place] population. Performed By: #### L 100.0100, L500.4100, L500.4050 #### [facility] [address] [place], [address] Cholesterol in HDL [Mass/Vol] 44 mg/dL Normal [facility] Comment on above: Result Comment: Leora onal Cholesterol Education Program (NCEP) guidelines: <40 mg/dL: Low HDL-cholesterol (major risk factor for CHD) >= 60 mg/dL: High HDL-cholesterol (negative risk factor for CHD) HDL-cholesterol is affected by a number of factors, e.g. smoking, exercise, hormones, sex and age. Performed By: #### L 100.0100, L500.4100, L500.4050 #### [facility] [address] [place], [address] Cholesterol in LDL [Mass/Vol] 79 mg/dL Normal [facility] Comment on above: Result Comment: Bord kemdjo=082-106 mg/dL Higher Xgip=583 mg/dL or greater Performed By: #### L 100.0100, L500.4100, L500.4050 #### [facility] [address] [place], [address] Cholesterol in VLDL [Mass/Vol] 17 mg/dL Normal 5-40 [facility] Comment on above: Performed By: #### L 100.0100, L500.4100, L500.4050 #### [facility] [address] [place], [address] Triglyceride [Mass/Vol] 86 mg/dL Normal [facility] Comment on above: Result Comment: The drugs N-Acetylcysteine and Metamizole may falsely depress this assay. Normal range: <150 mg/dL Borderline High: 150-199 mg/dL High: 200-499 mg/dL Very High: >500 mg/dL Performed By: #### L 100.0100, L500.4100, L500.4050 #### [facility] [address] [place], [address] MCV (mean corpuscular volume ) determinationOrdered By: Marika Josue on 05-06-2025 MCV (RBC) [Entitic vol] 90.2 fL 80-94 [facility] Mean corpuscular hemoglobin (MCH) determinationOrdered By: Marika Liat on 05-06-2025 MCH (RBC) [Entitic mass] 31.9 pg 27.0-32.0 [facility] Mean corpuscular hemoglobin concentration (MCHC) determinationOrdered By: Marika Liat on 05-06-2025 MCHC (RBC) [Mass/Vol] 35.4 g/dL 32-36 [facility] Mean platelet volume determi nationOrdered By: Marika Josue on 05-06-2025 Platelet mean volume (Bld) [Entitic vol] 9.5 fL 6.2-12.0 [facility] Monocyte percentageOrdered B y: Marika Josue on 05-06-2025 Monocytes/100 WBC (Bld) 7.1 % 0-10 [facility] Neutrophil percentageOrdered By: Marika Josue on 05-06-2025 Neutrophils/100 WBC (Bld) 53.9 % 47-70 [facility] Nucleated red blood cell per centageOrdered By: Marika Josue on 05-06-2025 Nucleated RBC/100 WBC (Bld) [Ratio] 0 % 0-5 [facility] Platelet countOrdered By: [place] Josue on 05-06-2025 Platelets (Bld) [#/Vol] 272 10*3/uL 150-450 [facility] Potassium measurement (mass/ volume)Ordered By: Marika Josue on 05-06-2025 Potassium (Unsp spec) [Mass/Vol] 3.8 mmol/L 3.3-5.1 [facility] RBC Auto (Bld) [#/Vol]Ordere d By: Marika Josue on 05-06-2025 RBC (Bld) [#/Vol] 4.70 10*6/uL 4.6-6.2 [facility] Screening total cholesterol/ high density lipoprotein (HDL) cholesterol ratioOrdered By: Marika Josue on 05-06-2025 Cholesterol.total/Choles terol in HDL [Mass ratio] 3.19 {ratio} [facility] Serum creatinine measurement (mass/volume)Ordered By: Marika Josue on 05-06-2025 Creatinine [Mass/Vol] 1.03 mg/dL 0.70-1.20 [facility] Serum globulin measurementOr dered By: Marika Josue on 05-06-2025 Globulin (S) [Mass/Vol] 2.5 g/dL 2.2-4.2 [facility] Serum glucose measurement (m ass/volume)Ordered By: Marika Josue on 05-06-2025 Glucose [Mass/Vol] 93 mg/dL 70-[address] [facility] Serum or plasma alanine jasso otransferase (ALT) measurementOrdered By: Marika Josue on 05-06-2025 ALT [Catalytic activity/Vol] 23 U/L <47 [facility] Serum or plasma albumin nila urement (mass/volume)Ordered By: Marika Josue on 05-06-2025 Albumin [Mass/Vol] 4.7 g/dL 3.5-5.[address] [facility] Serum or plasma albumin/glob ulin mass ratioOrdered By: Marika Josue on 05-06-2025 Albumin/Globulin [Mass ratio] 1.9 {ratio} 0.9-2.4 [facility] Serum or plasma alkaline jolie sphatase measurementOrdered By: Marika Josue on 05-06-2025 ALP [Catalytic activity/Vol] 74 U/L 40-129 [facility] Serum or plasma calcium nila urement (mass/volume)Ordered By: Marika Josue on 05-06-2025 Calcium [Mass/Vol] 9.4 mg/dL 7.6-11.[address] [facility] Serum or plasma cholesterol in HDL measurement (mass/volume)Ordered By: Marika Josue on 05-06-2025 Cholesterol in HDL [Mass/Vol] 44 mg/dL >40 [facility] Comment on above: National Cholesterol Education Program (NCEP) guidelines:<40 mg/dL: Low HDL-cholesterol (major risk factor for CHD)>= 60 mg/dL: High HDL-cholesterol (negative risk factor for CHD)HDL-cholesterol is affected by a number of factors, e.g. smoking, exercise, hormones, sex and age. Serum or plasma cholesterol measurement (mass/volume)Ordered By: Marika Josue on 05-06-2025 Cholesterol [Mass/Vol] 140 mg/dL <201 [facility] Comment on above: Cholesterol level, D esirable <200 mg/dLBorderline high cholesterol 200-239 mg/dLHigh cholesterol >=240 mg/dLRecommendations of the NCEP Adult Treatment Panel for the following risk-cutoff thresholds for the [place] population. Serum or plasma urea nitroge n measurement (mass/volume)Ordered By: Marika Josue on 05-06-2025 Urea nitrogen [Mass/Vol] 10 mg/dL 4-19 [facility] Sodium levelOrdered By: Sanjeev Josue on 05-06-2025 Sodium [Moles/Vol] 142 mmol/L 133-[address] [facility] Total proteinOrdered By: José Miguel Josue on 05-06-2025 Protein [Mass/Vol] 7.3 g/dL 5.9-8.[address] [facility] Triglycerides measurementOrd ered By: Marika Josue on 05-06-2025 Triglyceride [Mass/Vol] 86 mg/dL <199 [facility] Comment on above: The drugs N-Acetylcy steine and Metamizole may falsely depress this assay. Normal range: <150 mg/dLBorderline High: 150-199 mg/dLHigh: 200-499 mg/dLVery High: >500 mg/dL White blood cell (WBC) count Ordered By: Marika Josue on 05-06-2025 WBC (Bld) [#/Vol] 6.5 10*3/uL 4.4-11.[address] [facility] Internal Medicine Office Vis iton 05-05-2025 Internal Medicine Office Visit [facility] [place] [address] [place] [address] OFFICE VISIT Date of Service: 05/06/25 MR#: [id number] Acct: [id number] Name: DEL SOUZA Rep #: [id number] : 1975 Provider: Dr. 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 [facility] Medical History Alcohol use Arthritis Back pain [...] you feel safe at home: Yes Questionnaire [facility]-9 BMS Over the last 2 weeks, how [...] all Source: Developed by Drs. Sathish Stone, Aleisha Martienz, Olivier Ramos and colleagues, with an educational parth from [employer]. HPI HPI Details: DEL SOUZA, is a 50 M who presents [...] picking someth (more content not included)... Normal [facility] Colonoscopy Reporton 025 Colonoscopy Report [facility] Medical Records Department [address] [place] [address] Colonoscopy Report MR#: [id number] Acct: [id number] Name: DEL SOUZA Rep #: [id number] : 1975 49 From: Mak Lombardi MD PCP: Dr. Marika Josue MD Status:REG [facility] Patient Name: Del Souza Procedure Date: 01/05/2025 9:09 AM Date [...] present medications. Procedure Code(s): --- Professional --- 62855, Colonoscopy, flexible; with biopsy, single or multiple Diagnosis Code(s): --- Professional --- Z12.11, Encounter for screening for malignant neoplasm of colon D12.0, Benign neoplasm of cecum K64.8, Other hemorrhoids CPT copyright 2021 [employer] [employer]. All rights reserved. The codes documented in this report are preliminary and upon brush clearing laborer review may be revised to meet current compliance requirements. Mak Lombardi MD 01/05/2025 10:02:16 AM This report has been signed electronically. Number of Addenda: 0 Note Initiated On: 01/05/2025 9:09 AM 01/05/25 1002 Date Mak Lombardi MD Cosign Signature: Date (if indicated) CC: Dr. Marika Josue MD; Dr. Mak Lombardi MD Date Dictated: 01/05/25908 Date Transcribed: Radiator Repairer: JELLY Signed [facility] MR/POSTOP.Heather 01-05-2025 MR/POSTOP.[facility] Medical Records Department [address] [place] [address] Anesthesia Postop Eval I 01/05/25 1005 MR#: [id number] Acct: [id number] Name: DEL SOUZANE Rep #: [id number] : 1975 49 From: Justo Michaels PCP: Dr. Marika Josue MD Status:REG SDC Y Race: C Location: [place] [address] Anesthesia: Postop Eval I Current Vital Signs [...] Date Justo Urban Signature: Date CC: Signed Normal [facility] MR/[id number] 01-05-2025 /[facility] Medical Records Department [address] [place] [address] Anesthesia Postop Eval II 01/05/25 1010 MR#: [id number] Acct: [id number] Name: DIONNEJUANMAIDELSARAHI MEZA Rep #: [id number] : 1975 49 From: Jose Lee MD PCP: Dr. Marika Josue MD Status:REG [facility] Y Race: C Location: [place] [address] Anesthesia Postop Eval I Sum Postop Eval [...] No 01/05/25 1010 Date [facility] Signature: Date CC: Signed Normal [facility] Surgery Specimen Level Lawson 01-05-2025 Surgery Specimen Level IV -------- Patient Age/Sex Location Account Attending Physician -------- DEL SOUZA 49/M EN [id number] Dr. Mak Lombardi MD -------- Specimen: [id number] Received: 01/05/25 Status: JOSS De La O Num: [id number] Spec Type: COLON BX Subm Dr: Dr. [...] is totally submitted in one cassette. 01/05/2025 CPT:75708 -------- Patient Age/Sex Location Account Attending Physician -------- DEL SOUZA 49/M EN [id number] Dr. Mak Lombardi MD -------- Signed (signature on file) Dr. Miesha Bonilla MD 01/07/25 1755 -------- Normal [facility] Comment on above: Performed By: #### P SUIV #### [facility] [address] [place], [place], [address] Office Visit Reporton 2024 Office Visit Report [facility] [address] [place] [address] OFFICE VISIT Date of Service: 12/22/24 MR#: [id number] Acct: [id number] Patient: GUERRERO SOUZAED Rep #: [id number] : 1975 Provider: JENNA NURSE Age/Sex: 49/M Location[place] [facility] Status: Signed Intake Vital Signs 12/08/24 07:33 [...] hypertension 12/22/24 1618 Date Marika Josue MD [facility] Signature: Date (if applicable) CC: Dr. Mariak Josue MD [facility] Internal Medicine Office Vis [facility] 12-07-2024 Internal Medicine Office Visit [facility] [address] [place] [address] OFFICE VISIT Date of Service: 12/08/24 MR#: [id number] Acct: [id number] Name: DEL SOUZA Rep #: [id number] : 1975 Provider: Dr. Marika contreras MD Age/Sex: 49/M Location: 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 Normal [facility] Basic metabolic 2000 panelon 11-17-2024 Anion gap [Moles/Vol] 11 mmol/L Normal 8-15 [facility] Comment on above: Order Comment: Speci men Type: BLOOD SPECIMEN Ordering Facility: [facility] Address: [address] [place] [place] [id number] Performed By: #### 2 4321-2 #### [facility] CLIA [id number] [address] [place] [address] [place] Calcium [Mass/Vol] 8.9 mg/dL Normal 8.5-10.2 [facility] Comment on above: Order Comment: Speci men Type: BLOOD SPECIMEN Ordering Facility: [facility] Address: [address] [place], [place] [address] Performed By: #### 2 4321-2 #### [facility] CLIA [id number] [address] [place] [address] [place] Chloride [Moles/Vol] 105 mmol/L Normal 98-107 [facility] Comment on above: Order Comment: Speci men Type: BLOOD SPECIMEN Ordering Facility: [facility] Address: [address] [place] [address] Performed By: #### 2 4321-2 #### [facility] CLIA [id number] [address] [place] [address] [place] CO2 [Moles/Vol] 24 mmol/L Normal 22-30 [facility] Comment on above: Order Comment: Speci men Type: BLOOD SPECIMEN Ordering Facility: [facility] Address: [address] [place] [address] Performed By: #### 2 4321-2 #### [facility] CLIA [id number] [address] [place] [address] [place] Creatinine [Mass/Vol] 0.89 mg/dL Normal 0.73-1.22 [facility] Comment on above: Order Comment: Speci men Type: BLOOD SPECIMEN Ordering Facility: [facility] Address: [address] [place] [address] Performed By: #### 2 4321-2 #### [facility] CLIA [id number] [address] [place] [address] [place] Creatinine and Glomerular filtration rate.predicted panel (S/P/Bld) 104 mL/min/1.73m??? Normal >=60 [facility] Comment on above: Order Comment: Yazan disla Type: BLOOD SPECIMEN Ordering Facility: [facility] Address: [address] [place] [address] Result Comment: Margoth mated Glomerular Filtration Rate [...] GFR. Performed By: #### 2 4321-2 #### [facility] CLIA [id number] [address] [place] [address] [place] Glucose [Mass/Vol] 142 mg/dL High 74-99 [facility] Comment on above: Order Comment: Yazan disla Type: BLOOD SPECIMEN Ordering Facility: [facility] Address: [address] [place] [address] Result Comment: The [place] Diabetes Association (ADA) provides guidance for cutoff [...] Standards of Medical Care in Diabetes 2016, [place] [employer]. Diabetes Care. 2016.39(Suppl 1). Performed By: #### 2 4321-2 #### [facility] CLIA [id number] [address] [place] [address] [place] Potassium [Moles/Vol] 4.0 mmol/L Normal 3.7-5.1 [facility] Comment on above: Order Comment: Yazan disla Type: BLOOD SPECIMEN Ordering Facility: [facility] Address: [address] [place] [address] Performed By: #### 2 4321-2 #### [facility] CLIA [id number] [address] [place] [id number] [place] [facility] Sodium [Moles/Vol] 140 mmol/L Normal 136-144 [facility] Comment on above: Order Comment: Speci men Type: BLOOD SPECIMEN Ordering Facility: [facility] Address: [address] [place] [address] Performed By: #### 2 4321-2 #### [facility] CLIA [id number] [address] [place] Urea nitrogen [Mass/Vol] 11 mg/dL Normal 9-24 [facility] Comment on above: Order Comment: Speci men Type: BLOOD SPECIMEN Ordering Facility: [facility] Address: [address] [place] [address] Performed By: #### 2 4321-2 #### [facility] CLIA [id number] [address] [place] CBC panel Auto (Bld)on 11-17 Erythrocyte distribution width (RBC) [Ratio] 11.6 % Normal 11.5-15.0 [facility] Comment on above: Order Comment: Speci men Type: BLOOD SPECIMEN Ordering Facility: [facility] Address: [address] [place] [address] Performed By: #### 5 8410-2 #### [facility] CLIA [id number] [address] [place], [place] [id number] [place] [facility] Hematocrit (Bld) [Volume fraction] 41.4 % Normal 39.0-51.0 [facility] Comment on above: Order Comment: Speci men Type: BLOOD SPECIMEN Ordering Facility: [facility] Address: [address] [place] [address] Performed By: #### 5 8410-2 #### [facility] CLIA [id number] [address] [place] [id number] [facility] [place] Hemoglobin (Bld) [Mass/Vol] 14.5 g/dL Normal 13.0-17.0 [facility] Comment on above: Order Comment: Speci men Type: BLOOD SPECIMEN Ordering Facility: [facility] Address: [address] [place] [address] Performed By: #### 5 8410-2 #### [facility] CLIA [id number] [address] [place] [address] [place] MCH (RBC) [Entitic mass] 32.1 pg Normal 26.0-34.0 [facility] Comment on above: Order Comment: Speci men Type: BLOOD SPECIMEN Ordering Facility: [facility] Address: [address] [place] [address] Performed By: #### 5 8410-2 #### [facility] CLIA [id number] [address] [place] [address] [place] MCHC (RBC) [Mass/Vol] 35.0 g/dL Normal 30.5-36.0 [facility] Comment on above: Order Comment: Speci men Type: BLOOD SPECIMEN Ordering Facility: [facility] Address: [address] [place] [address] Performed By: #### 5 8410-2 #### [facility] CLIA [id number] [address] [place] [address] [facility] [place] MCV (RBC) [Entitic vol] 91.6 fL Normal 80.0-100.0 [facility] Comment on above: Order Comment: Speci men Type: BLOOD SPECIMEN Ordering Facility: [facility] Address: [address] [place] [address] Performed By: #### 5 8410-2 #### [facility] CLIA [id number] [address] [place] [id number] [facility] Platelet mean volume (Bld) [Entitic vol] 9.0 fL Normal 9.0-12.7 [facility] Comment on above: Order Comment: Speci men Type: BLOOD SPECIMEN Ordering Facility: [facility] Address: [address] [place] [address] Performed By: #### 5 8410-2 #### [facility] CLIA [id number] [address] [place] [address] [facility] [place] Platelets (Bld) [#/Vol] 224 10*3/uL Normal 150-400 [facility] Comment on above: Order Comment: Speci men Type: BLOOD SPECIMEN Ordering Facility: [facility] Address: [address] [place], [place] [address] Performed By: #### 5 8410-2 #### [facility] CLIA [id number] [address] [place] [address] [facility] [place] RBC (Bld) [#/Vol] 4.52 10*6/uL Normal 4.20-6.00 [facility] Comment on above: Order Comment: Speci men Type: BLOOD SPECIMEN Ordering Facility: [facility] Address: [address] [place] [address] Performed By: #### 5 8410-2 #### [facility] CLIA [id number] [address] [place], [place] [id number] [place] [address] WBC (Bld) [#/Vol] 6.18 10*3/uL Normal 3.70-11.00 [facility] Comment on above: Order Comment: Speci men Type: BLOOD SPECIMEN Ordering Facility: [facility] Address: [address] [place] [address] Performed By: #### 5 8410-2 #### [facility] CLIA [id number] [address] [place] [address] [facility] ED NOTEon 11-17-2024 ED NOTE HNO ID: [id number] Author: DISHA SALINAS RN Service: Emergency Medicine [...] do anything else to help you? No [facility] ED NOTE HNO ID: [id number] Author: MIGUEL DELGADO RN Service: Emergency Medicine Author Type: Registered Nurse Type: ED Notes Filed: 11/17/2024 02:29 Note Text: Patient discharge instructions given to patient. Patient educated on discharge instructions. Patient denied having questions at this time regarding discharge instructions. Patient discharged home at this time. [facility] ED NOTE HNO ID: [id number] Author: MIGUEL DELGADO RN Service: Emergency Medicine Author Type: Registered Nurse Type: ED Notes Filed: 11/17/2024 02:27 Note Text: ED physician at bedside. [facility] ED NOTE HNO ID: [id number] Author: MIGUEL DELGADO RN Service: Emergency Medicine Author Type: Registered Nurse Type: ED Notes Filed: 11/17/2024 00:07 Note Text: ED Physician at bedside. [facility] ED PROV NOTEon 11-17-2024 ED PROV NOTE HNO ID: [id number] Author: FELIX SOTO MD Service: ? Author Type: Physician Type: ED Provider Notes Filed: 11/17/2024 02:29 Note Text: ED Provider Note Patient Name: Del Souza : 1975 SERVICE DATE: 11/17/24 History [...] tonight after taking a nap this evening (~1999). Pt denies calf pain/edema, hemoptysis, malignancy, hormone [...] / Clinical Impression Clinical Impressions as of 11/17/24226 Chest pain, unspecified type Primary hypertension All [...] SIGNATURE: Felix Soto MD - FELIX SOTO 11/17/24228 Normal [facility] EKGon 11-17-2024 Electrocardiogram Ventricular Rate : 8 5 BPM Atrial Rate : 85 BPM P-R Interval : 164 ms QRS Duration : 88 ms Q-T Interval : 378 ms QTC Calculation(Bazett) : 449 ms Calculated P Frazee : 33 degrees Calculated R Frazee : 2 degrees Calculated T Frazee : 11 degrees NORMAL SINUS RHYTHM NORMAL ECG NO PREVIOUS ECGS AVAILABLE Confirmed by MD SOTO VINAYAK ([id number]) on 11/17/2024 10:35:32 AM NAME : DEL SOUZA PID : [id number] : 1975 Gender : Male Race : ORD : Procedure Date : Nov 17 2024 00:12:08 Edit Date : Nov 17 2024 10:35:34 Diagnosis: NORMAL SINUS RHYTHM NORMAL ECG NO PREVIOUS ECGS AVAILABLE Confirmed by MD SOTO VINAYAK ([id number]) on 11/17/2024 10:35:32 AM Test Reason : Location : 191 : [facility] ED Overread By : MD SOTO VINAYAK Edited By : MD SOTO VINAYAK Referred By : , Acquired by : CHRISTIANO GIBBONSET Normal [facility] HIGH SENSITIVITY TROPONIN T (INITIAL)on 11-17-2024 Troponin T.cardiac High sensitivity method [Mass/Vol] <6 Normal <12 [facility] Comment on above: Order Comment: Speci men Type: BLOOD SPECIMEN Ordering Facility: [facility] Address: [address] [place] [address] Performed By: #### L [id number] #### [facility] CLIA [id number] [address] [place] [address] [facility] HIGH SENSITIVITY TROPONIN T (SECOND)on 11-17-2024 Troponin T.cardiac High sensitivity method [Mass/Vol] <6 Normal <12 [facility] Comment on above: Order Comment: Speci men Type: BLOOD SPECIMEN Ordering Facility: [facility] Address: [address] [place] [address] Performed By: #### L [id number] #### [facility] CLIA [id number] [address] [place] [address] [place] XR CHEST 2V FRONTAL/LATon XR CHEST 2V [...] soft tissues: Unremarkable. IMPRESSION: No acute abnormality. Radiator Repairer: OSEAS Transcribe Date/Time: Nov 17 2024 1:07A Dictated by : ARIEL ALEJANDRO MD This examination was interpreted and the report reviewed and electronically signed by: ARIEL ALEJANDRO MD on Christiano 21 2025 1:08AM EST [id number] N Normal [facility] Vital Signs Date Time Vital Sign Value Performing Clinician Leana calvert 06-14-2025 08:01-0400 Body height 180.[address] Marika Josue MD Work Phone: [facility] 06-14-2025 08:01-0400 Body mass index (BMI) [Ratio] 27.9 kg/m2 Dr. Marika Josue MD Work Phone: [facility] 06-14-2025 08:01-0400 Body weight 90.[address] Marika Josue MD Work Phone: [facility] 05-06-2025 10:04-0400 Diastolic blood pressure 85 mm[Hg] Dr. Marika Josue MD Work Phone: [facility] 05-06-2025 10:04-0400 Systolic blood pressure 135 mm[Hg] Dr. Marika Josue MD Work Phone: [facility] 05-06-2025 08:28-0400 Body height 180.[address] Marika Josue MD Work Phone: [facility] 05-06-2025 08:28-0400 Body mass index (BMI) [Ratio] 28.1 kg/m2 Dr. Marika Josue MD Work Phone: [facility] 05-06-2025 08:28-0400 Body temperature 97.9 [degF] Dr. Marika Josue MD Work Phone: [facility] 05-06-2025 08:28-0400 Body weight 91.[address] Marika Josue MD Work Phone: [facility] 05-06-2025 08:28-0400 Diastolic blood pressure 98 mm[Hg] Dr. Marika Josue MD Work Phone: [facility] 05-06-2025 08:28-0400 Heart rate 72 /min Dr. Marika Josue MD Work Phone: [facility] 05-06-2025 08:28-0400 Respiratory rate 16 /min Dr. Marika Josue MD Work Phone: [facility] 05-06-2025 08:28-0400 SaO2% (BldA) [Mass fraction] 90 % Dr. Marika Josue MD Work Phone: [facility] 05-06-2025 08:28-0400 Systolic blood pressure 146 mm[Hg] Dr. Marika Josue MD Work Phone: [facility] 01-05-2025 10:25-0400 Body temperature 99.2 [degF] Dr. Marika Josue MD Work Phone: [facility] 01-05-2025 10:25-0400 Diastolic blood pressure 90 mm[Hg] Dr. Marika Josue MD Work Phone: [facility] 01-05-2025 10:25-0400 Heart rate 59 /min Dr. Marika Josue MD Work Phone: [facility] 01-05-2025 10:25-0400 Respiratory rate 16 /min Dr. Marika Josue MD Work Phone: [facility] 01-05-2025 10:25-0400 SaO2% (BldA) [Mass fraction] 97 % Dr. Marika Josue MD Work Phone: [facility] 01-05-2025 10:25-0400 Systolic blood pressure 126 mm[Hg] Dr. Marika Josue MD Work Phone: [facility] 01-05-2025 08:25-0400 Body height 180.[address] Marika Josue MD Work Phone: [facility] 01-05-2025 08:25-0400 Body mass index (BMI) [Ratio] 27.9 kg/m2 Dr. Marika Josue MD Work Phone: [facility] 01-05-2025 08:25-04[address] Body weight [address] Marika Josue MD Work Phone: [facility] 12-22-2024 08:07-0500 Diastolic blood pressure 80 mm[Hg] Dr. Marika Josue MD Work Phone: [facility] 12-22-2024 08:07-0500 Systolic blood pressure 142 mm[Hg] Dr. Marika Josue MD Work Phone: [facility] 12-08-2024 08:34-0500 Diastolic blood pressure 98 mm[Hg] Dr. Marika Josue MD Work Phone: [facility] 12-08-2024 08:34-0500 Systolic blood pressure 164 mm[Hg] Dr. Marika Josue MD Work Phone: [facility] 12-08-2024 07:33-0500 Body mass index (BMI) [Ratio] 29.6 kg/m2 Dr. Marika Josue MD Work Phone: [facility] 12-08-2024 07:33-0500 Body temperature 96.6 [degF] Dr. Marika Josue MD Work Phone: [facility] 12-08-2024 07:33-0500 Body weight 96.[address] Marika Josue MD Work Phone: [facility] 12-08-2024 07:33-0500 Heart rate 76 /min Dr. Marika Josue MD Work Phone: [facility] 12-08-2024 07:33-0500 Respiratory rate 16 /min Dr. Marika Josue MD Work Phone: [facility] 12-08-2024 07:33-0500 SaO2% (BldA) [Mass fraction] 98 % Dr. Marika Josue MD Work Phone: [facility] 11-19-2024 10:56-0500 Body mass index (BMI) [Ratio] 26.4 kg/m2 Dr. Marika Josue MD Work Phone: [facility] 11-19-2024 [id number] Body weight 86.[address] Marika Josue MD Work Phone: [facility] Encounters Encounter Date Encounter Type Care Provider Facility Start: 07-07-2025 ambulatory Marika Hamiltonlay Facility :[facility] Start: 06-14-2025 End: 06-14-[address] Bernard Levi MD -[facility] Start: 06-14-2025 End: 06-14-[address] Marika Josue MD Work Phone: -[facility] Start: 06-02-2025 ambulatory Marika Josue Facility :[facility] Start: 06-02-2025 Non-patient / Non-visit Dr. Violet cortes MD -[facility]- Start: 06-02-2025 End: 06-02-[address] Marika Josue MD Work Phone: -Pulmonary Services/Neurology Start: 06-02-2025 End: 06-02-[address] Marika Josue MD -Pulmonary Services/Neurology Work Phone: Start: 06-02-2025 End: 06-02-2025 ambulatory Marika Josue Facility:[facility] Start: 05-06-2025 End: 05-06-[address] Marika Josue MD -[facility] Work Phone: Start: 05-06-2025 End: 05-06-[address] Marika Josue MD Work Phone: -[facility] Start: 05-06-2025 End: 05-06-2025 ambulatory Marika Josue Facility:[facility] Start: 01-05-2025 ambulatory Marika Josue Facility :[facility] Start: 01-05-2025 Non-patient / Non-visit Dr. Mak Lombardi MD -[facility] Start: 01-05-2025 End: 01-05-2025 Admission to same day surgery center Dr. Mak Lombardi MD -Endoscopy Work Phone: Start: 01-05-2025 End: 01-05-[address] Marika Josue MD Work Phone: [facility] Work Phone: Start: 12-22-2024 End: 12-22-[address] Marika Josue MD -[facility] Work Phone: Start: 12-22-2024 End: 12-22-2024 ambulatory Marika Josue Facility:[facility] Start: 12-08-2024 End: 12-08-[address] Marika Josue MD -[facility] Work Phone: Start: 12-08-2024 End: 12-08-2024 ambulatory Marika Josue Facility:[facility] Start: 11-19-2024 Non-patient / Non-visit Dr. Shannan CRUZ Work Phone: -[facility] Work Phone: Start: 11-19-2024 ambulatory Marika Josue Facility :[facility] Start: 11-17-2024 Emergency department patient visit Facility:[facility] Start: 09-11-2016 End: 09-12-2016 Ambulatory [facility] Facility:[facility] Procedures Date Procedure Procedure Detail Performing Clinician Start: 06-02-2025 X-ray of lumbar spin e, two or three views Dr. Marika Josue MD Work Phone: Start: 06-02-2025 X-ray of thoracic sp ine, three views Dr. Marika Josue MD Work Phone: Start: 01-05-[address] Marika Josue MD Work Phone: Plan of Treatment Date Care Activity Detail Author Start: 06-14-2025 X-ray of cervical spine Cerv S pine 4 or 5 Views [facility] Start: 06-14-2025 X-ray of lumbosacral spine L/S Spine Bending Flex/Ext [facility] Start: 06-14-2025 XR Cervical spine 4 or 5 Views [facility] Start: 06-14-2025 XR Spine Lumbar and Sacrum Views [facility] Start: 06-02-2025 [facility] Start: 05-06-2025 CBC W Auto Different ial panel - Blood [facility] Start: 05-06-2025 Comprehensive metabo lic 2000 panel - Serum or Plasma [facility] Start: 05-06-2025 Lipid 1996 panel - S alanna or Plasma [facility] Start: 01-05-2025 Patient discharge [facility] Alanine aminotransfe rase [Enzymatic activity/volume] in Serum or Plasma [facility] Albumin [Mass/volume ] in Serum or Plasma [facility] Alkaline phosphatase [Enzymatic activity/volume] in Serum or Plasma [facility] Anion gap in Serum or Plasma [facility] Bilirubin, total measurement [facility] BUN/Creatinine ratio [facility] Calcium [Mass/volume ] in Serum or Plasma [facility] Carbon dioxide, tota l [Moles/volume] in Central venous blood [facility] Cholesterol [Mass/vo lume] in Serum or Plasma [facility] Cholesterol in HDL [Mass/volume] in Serum or Plasma [facility] Colonoscopy [facility] Creatinine [Mass/vol ume] in Serum or Plasma [facility] Erythrocyte mean cor puscular volume determination [facility] Glucose [Mass/volume ] in Serum or Plasma [facility] Hematocrit [Volume F raction] of Blood [facility] Hemoglobin [Mass/vol ume] in Blood [facility] Leukocytes [#/volume ] in Blood [facility] Low density lipoprot ein cholesterol measurement [facility] Mean corpuscular hem oglobin concentration determination [facility] Mean corpuscular hem oglobin determination [facility] Measurement of renal function [facility] MR Lumbar spine [facility] Neutrophil count [facility] Neutrophil percent differential count [facility] Patient referral [facility] Work Phone: Platelets [#/volume] in Blood [facility] Potassium measurement [facility] Red blood cell count [facility] Red cell distributio n width determination [facility] Serum chloride measurement [facility] Sodium measurement [facility] Tobacco use cessatio n education [facility] Total cholesterol:HD L ratio measurement [facility] Total protein measurement [facility] Triglycerides measurement [facility] Urea nitrogen [Mass/ volume] in Serum or Plasma [facility] VLDL cholesterol measurement [facility] XR Lumbar spine 2 or 3 Views [facility] XR Thoracic spine 4 Views [facility] Immunizations Immunization Date Immunization Notes Care Provider Fa [facility] 12-08-[address] Marika Josue MD Work Phone: [facility] 04-14-[address] Marika Josue MD Work Phone: [facility] 10-28-2014 tetanus toxoid, redu shruthi diphtheria toxoid, and acellular pertussis vaccine, adsorbed Dr. Marika Josue MD Work Phone: [facility] Payers Date Payer Category Payer Self-pay 2012 Unknown [id number] Unknown [id number] 2.16.8 [id number] Unknown [id number] 2.16.8 [id number] Unknown [id number] 2.16.8 [id number] Unknown [id number] 2.16.8 [id number] Unknown [id number] 2.16.8 [id number] Unknown [id number] 2.16.8 [id number] Unknown [id number] 2.16.8 [id number] Unknown [id number] 2.16.8 [id number] Unknown [id number] 2.16.8 [id number] Unknown [id number] 2.16.8 [id number] Unknown [id number] 2.16.8 [id number] Unknown [id number] 2.16.8 [id number] Social History Date Type Detail Facility Start: [facility] Start: 01-05-2025 Sex Male (finding) [facility] Start: 1975 Sex Assigned At Male [facility] Start: 05-06-2025 Tobacco smoking stat [facility] Ex-smoker (finding) [facility] Goals Date Patient Goal Desired Activity /State Mental Status Date Assessment Result Facility 01-05-2025 Cognitive function Light Pain [facility] Work Phone: Clinical Notes 12-08-2024 to 06-02-2025 Note Date & Type Note Facility 06-02-2025 Radiology Diagnostic study note [facility] Imaging Services [address] [place] [address] [id number] Lumbar Spine 2 or 3 Views MR#: [id number] Acct: [id number] Name: DEL SOUZA Rep #: [id number] : 1975 M 50 From: Rojelio Oseguera MD PCP: Dr. Marika Josue MD Status: REG CLI Study:Lumbar Spine 2 or 3 Views Date of Exam: 06/02/25 Exam# [id number] Ordering Dr: Marika Josue MD PROCEDURE: LUMBAR SPINE 2 OR 3 VIEWS 06/02/2025 REASON FOR EXAM: BACK PAIN TECHNIQUE: LUMBAR SPINE 2 OR 3 VIEWS COMPARISON: None. RAD/Lumbar Spine 2 or 3 Views IMPRESSION: Mild aortic calcification is seen. Minimal sacroiliac joint degenerative changes are noted. Mild degenerative disc disease is seen at L1-L2, without definite associated disc space narrowing. Moderately severe L5-S1 degenerative disc disease is seen, with moderately severe disc space narrowing and mild retrolisthesis of L5 upon S1. No evidence of spondylolysis. Lower lumbar posterior facet hypertrophy is also seen. No acute osseous change is evident. Reading Location: [place] [address] CC: Dr. Marika Josue MD ~ Radiator Repairer: Signed [facility] 06-02-2025 Radiology Diagnostic study note [facility] Imaging Services [address] [place] [address] Thoracic Spine 3 Views MR#: [id number] Acct: [id number] Name: DEL SOUZA Rep #: [id number] : 1975 M 50 From: Rojelio Oseguera MD PCP: Dr. Marika Josue MD Status: REG CLI Study:Thoracic Spine 3 Views Date of Exam: 06/02/25 Exam# [id number] Ordering Dr: Marika Josue MD PROCEDURE: THORACIC SPINE 3 VIEWS 06/02/2025 REASON FOR EXAM: BACK PAIN TECHNIQUE: THORACIC SPINE 3 VIEWS COMPARISON: None. RAD/Thoracic Spine 3 Views IMPRESSION: Mild degenerative changes are seen in the thoracic spine, most prominent in the lower portion thereof. No fracture, subluxation, or paraspinous line widening is seen. Reading Location: [place] [address] CC: Dr. Marika Josue MD ~ Radiator Repairer: Signed [facility] 06-02-2025 Procedure note [facility] 05-06-2025 Evaluation note Diagnosis Onset Date Resolution [...] past year noneactive May 06, 2025 8:19am [facility] Work Phone: 1(114) 946-143803-11-2025 Consult note [facility] Medical Records Department [address] [address] Anesthesia Postop Eval II 01/05/25 1010 MR#: [id number] Acct: [id number] Name: DEL SOUZA Rep #:[id number] : 1975 49 From: Jose Lee MD PCP: Dr. Marika Josue MD Status:REG SDC Y Race: C Location: [place] [address] Anesthesia Postop Eval I Sum Postop Eval [...] No 01/05/25 1010 MD> Date _ Jose Lee MD Cosigner Signature: Date CC: ~ Signed [facility]03-11-2025 Consult note [facility] Medical Records Department [address] [place] [address] Anesthesia Postop Eval I 01/05/25 1005 MR#: [id number] Acct: [id number] Name: DEL SOUZA Rep #:[id number] : 1975 49 From: Justo Michaels PCP: Dr. Marika Josue MD Status:REG [facility] [place] Race: C Location: [place] [address] Anesthesia: Postop Eval I Current Vital Signs [...] Justo Urban Signature: Date CC: ~ Signed [facility]03-11-2025 Procedure note [facility] Medical Records Department [address] [place] [place] [address] Operative Report - CC Letter MR#: [id number] Acct: [id number] Name: DEL SOUZA Rep #:[id number] : 1975 49 From: Mak Lombardi MD PCP: Dr. Marika Josue MD Status:REG [facility] 01/05/2025 Marika Josue Md Re : Colonoscopy procedure for Del Souza Juan Carlos Josue This procedure was performed on Sunday, January [...] ~ Date Dictated: 01/05/25 0909 Date Transcribed: Radiator Repairer: SW Signed [facility]03-11-2025 Procedure note [facility] Medical Records Department [address] [place] [address] Colonoscopy Report MR#: [id number] Acct: [id number] Name: DEL SOUZA Rep #:[id number] : 1975 49 From: Mak Lombardi MD PCP: Dr. Marika Josue MD Status:[facility] Patient Name: Del Souza Procedure Date: 01/05/2025 9:09 AM Date [...] present medications. Procedure Code(s): --- Professional --- 65418, Colonoscopy, flexible; with biopsy, single or multiple Diagnosis Code(s): --- Professional --- Z12.11, Encounter for screening for malignant neoplasm of colon D12.0, Benign neoplasm of cecum K64.8, Other hemorrhoids CPT copyright 2021 [employer]. All rights reserved. The codes documented in this report are preliminary and upon brush clearing laborer review may be revised to meet current compliance requirements. Mak Lombardi MD 01/05/2025 10:02:16 AM This report has been signed electronically. Number of Addenda: 0 Note Initiated On: 01/05/2025 9:09 AM 01/05/25 1002 Date _ Mak Lombardi MD Cosigner Signature: Date (if indicated) CC: Dr. Marika Josue MD; Dr. Mak Lombardi MD ~ Date Dictated: 01/05/25 0909 Date Transcribed: Radiator Repairer: SW Signed [facility]03-11-2025 History and physical note [facility] Medical Records Department [address] [place] [address] History & Physical Exam 01/05/25 0916 MR#: [id number] Acct: [id number] Name: DEL SOUZA Rep #:[id number] : 1975 49 From: Mak Lombardi MD PCP: Dr. Marika Josue MD Status:[facility] Location: [place] [address] HPI - General General Date of Admission: 01/05/25 Date of Service: 01/05/25 Chief Complaint: Colonoscopy HPI Narrative DEL SOUZA, is a 49 M who presents for screening colonoscopy. Last colonoscopy was about 6 years ago. At that time he was having some diarrhea andwas diagnosed with microscopic colitis. He was placed on steroids and the symptoms resolved. He denies any recent symptoms or problems. No family history of colon polyps or colon cancer. [facility] Medical History Alcohol use Arthritis Back pain [...] willbegin momentarily Charges/Coding Visit Charges Inpatient E&M: 29702 Init Hosp L1 01/05/25 0921 Cosigner Signature (if applicable): CC: Dr. Marika Josue MD; Dr. Mak Lombardi MD~ Signed [facility]03-11-2025 [facility] Medical Records Department [address] [place] [address] History Physical Exam 01/05/25 0916 MR#: [id number] Acct: [id number] Name: DEL SOUZA Rep #: [id number] : 1975 49 From: Mak Lombardi MD PCP: Dr. Marika Josue MD Status[place]REG [facility] Location[place] [address] HPI - General General Date of Admission: 01/05/25 Date of Service: 01/05/25 Chief Complaint: Colonoscopy HPI Narrative DEL SOUZA, is a 49 M who presents for screening colonoscopy. Last colonoscopy was about 6 years ago. At that time he was having some diarrhea and was diagnosed with microscopic colitis. He was placed on steroids and the symptoms resolved. He denies any recent symptoms or problems. No family history of colon polyps or colon cancer. [facility] Medical History Alcohol use Arthritis Back pain [...] momentarily Charges/Coding Visit Charges Inpatient E M: 81779 Init Hosp L1 01/05/25 0921 Cosigner Signature (if applicable): CC: Dr. Marika Josue MD; [facility] Mak [facility]ardi [facility] Consult note [facility] Medical Records Department [address] [place] [address] Pre-Anesthesia Evaluation 01/05/25 0849 MR#: [id number] Acct: [id number] Name: DEL SOUZA Rep #:[id number] : 1975 49 From: Jose Lee MD PCP: Dr. Marika Josue MD Status:REG SDC Y Race: C Location: [place] [address] ASA Classification* ASA Classification ASA Classification: 2 [...] 04/14/24 10:04/14/24 BUN 10 mg/dL (7-18) 04/14/24 10:24 Creatinine 0.97 mg/dL (0.70-1.30) 04/14/24 10:28 04/14/24 Glucose 99 mg/dL (74-106) 04/14/24 10:28 04/14/24 TSH 1.38 uIU/mL (0.358-3.74) 04/14/24 10:28 COAG Pre-Assessment Diagnosis/Proposed Procedure Planned Operative Procedure(s): Colonoscopy - Open Access Anesthesia History Anesthesia History - office coordinator: Anesthesia History - office coordinator Hx Hospitalization No 01/01/25 10:43 Any [...] sips of water?: Yes PONV PONV - office coordinator: PONV - office coordinator Female No 01/01/25 10:43 HX of [...] 01/05/25 08:25 Respiratory Assessment Respiratory Assessment - office coordinator: Respiratory Tract Infection Hx - office coordinator Hx Respiratory Tract Infection No 01/01/25 10:43 Any additional information?: No STOP Sleep Apnea STOP Sleep Apnea - office coordinator: STOP Sleep Apnea - office coordinator Hx Hypertension Yes: CONTROLLED ON MED [...] Tobacco Use History Tobacco Use History - office coordinator: Tobacco Use History - office coordinator Tobacco Use Smoking Status Current every day smoker 01/01/25 10:43 Hx Tobacco Use Yes 01/01/25 10:43 Years Smoking Packs Smoked per Day Smoking Cessation Date was within the last 15 years Hx Smoking Cessation Date Hx Smoking Cessation Counseling Any additional information?: No Hematologic Medial History Hematologic Hx - office coordinator: 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 Hx of Blood Transfusion No 01/01/25 10:43 [...] information?: No /Reproduction History /Reproductive History - office coordinator: /Reproductive Hx- office coordinator Hx Now Gestational Age (in weeks): [...] rhythm, no murmurs and diaphoretic 01/05/25 0853 MD> Date _ Jose Lee MD Cosigner Signature: Date CC: ~ Signed [facility] [facility] Evaluation note* Diagnosis Onset Date Resolution Status [...] screening for malignant neoplasm of colon acute [facility] 2024 8:02am [facility] Work Phone: Consult note Author Jose Lee [facility] Note Date/Time January 05, 2025 8:5 3am [facility] Medical Records Department [address] [place] [id number] Pre-Anesthesia Evaluation 01/05/25 0849 MR#: [id number] Acct: [id number] Name: DEL SOUZA Rep #:[id number] : 1975 49 From: Jose Lee MD PCP: Dr. Marika Josue MD Status:REG SD Y Race: C Location: [place] [address] ASA Classification* ASA Classification ASA Classification: 2 [...] Open Access Anesthesia History Anesthesia History - office coordinator: Anesthesia History - office coordinator Hx Hospitalization No 01/01/25 10:43 Any [...] sips of water?: Yes PONV PONV - office coordinator: PONV - office coordinator Female No 01/01/25 10:43 HX of [...] 01/05/25 08:25 Respiratory Assessment Respiratory Assessment - office coordinator: Respiratory Tract Infection Hx - office coordinator Hx Respiratory Tract Infection No 01/01/25 10:43 Any additional information?: No STOP Sleep Apnea STOP Sleep Apnea - office coordinator: STOP Sleep Apnea - office coordinator Hx Hypertension Yes: CONTROLLED ON MED [...] Tobacco Use History Tobacco Use History - office coordinator: Tobacco Use History - office coordinator Tobacco Use Smoking Status Current every day smoker 01/01/25 10:43 Hx Tobacco Use Yes 01/01/25 10:43 Years Smoking Packs Smoked per Day Smoking Cessation Date was within the last 15 years Hx Smoking Cessation Date Hx Smoking Cessation Counseling Any additional information?: No Hematologic Medial History Hematologic Hx - office coordinator: 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 Hx of Blood Transfusion No 01/01/25 10:43 [...] information?: No /Reproduction History /Reproductive History - office coordinator: /Reproductive Hx- office coordinator Hx Now Gestational Age (in weeks): [...] MD Cosigner Signature: Date CC: ~ Signed [facility] Work Phone: Consult note Author Justo Michaels [facility] Note Date/Time January 05, 2025 10: 06am [facility] Medical Records Department [address] [place] [address] Anesthesia Postop Eval I 01/05/25 1005 MR#: [id number] Acct: [id number] Name: DEL SOUZA Rep #:[id number] : 1975 49 From: Justo Michaels PCP: Dr. Marika Josue MD Status:REG SDC Y Race: C Location: [place] [address] Anesthesia: Postop Eval I Current Vital Signs [...] by Justo Michaels > Date _ Justo Michaels Cosigner Signature: Date CC: ~ Signed [facility] Work Phone: Consult note Author Jose Lee [facility] Note Date/Time January 05, 2025 10: 39am [facility] Medical Records Department [address] [place] [address] Anesthesia Postop Eval II 01/05/25 1010 MR#: [id number] Acct: [id number] Name: DEL SOUZA Rep #:[id number] : 1975 49 From: Jose Lee MD PCP: Dr. Marika Josue MD [place] [facility] [place] Race: C Location: [place] [address] Anesthesia Postop Eval I Sum Postop Eval [...] MD Cosigner Signature: Date CC: ~ Signed [facility] Work Phone: Evaluation note* Diagnosis Onset Date Resolution Status Admit Date Smokes cigarettes noneactive May 062024 8:19am Suspected sleep apnea noneactive Apr 8:19am Essential hypertension noneactive 2024 8:19am GERD (gastroesophageal reflu x disease) noneactive May 06, 2025 8:19am Mid back pain noneactive May 06, 2025 8:19am Numbness and tingling noneactive Apr 8:19am Screening for cardiovascular condition noneactive May 06, 2025 8:19am [facility] Work Phone: History and physical note Author Mak Lombardi [facility] Note Date/Time January 05, 2025 9:2 1am [facility] Medical Records Department [address] [place] [address] History & Physical Exam 01/05/25 0916 MR#: [id number] Acct: [id number] Name: DEL SOUZA Rep #:[id number] : 1975 49 From: Mak Lombardi MD PCP: Dr. aMrika Josue MD Status:[place] [facility] [place] [address] HPI - General General Date of Admission: 01/05/25 Date of Service: 01/05/25 Chief Complaint: Colonoscopy HPI Narrative DEL SOUZA, is a 49 M who presents for screening colonoscopy. Last colonoscopy was about 6 years ago. At that time he was having some diarrhea andwas diagnosed with microscopic colitis. He was placed on steroids and the symptoms resolved. He denies any recent symptoms or problems. No family history of colon polyps or colon cancer. [facility] Medical History Alcohol use Arthritis Back pain [...] begin momentarily Charges/Coding Visit Charges Inpatient E&M: 40131 Init Hosp L1 01/05/25 0921 <Electronically signed by Mak Lombardi MD> Cosigner Signature (if applicable): CC: Dr. Marika Josue MD; Dr. Mak Lombardi MD~ Signed [facility] Work Phone: Reason for referral (narrative)No reason for referral information availableWAsht[facility] Work Phone: Summary Purpose Family History No Family History Records Found Relationship Condition Age at Onset Recorded Date/T nina father Alcohol abuse Unknown Arthritis Unknown Hypertension Unknown mother Alcohol abuse Unknown sister Malignant neoplasm 48 Advance Directives No Advanced Directives Records Found Advance Directive Response Recorded Date/ Time Living Will Yes January 01, 2025 11:43am Power of Assignment Desk Editor Yes January 01 11:43am Name of Medical Power of Assignment Desk Editor KAILEEDAGO NÚÑEZMAI January 01, 2025 11:43am Chief Complaint and [...] 8 :19am GERD (gastroesophageal reflux disease) [facility] 2024 8:19am Mid back pain May 06, 2025 8:19 am Numbness and tingling May 06, 2025 8: 19am Screening for cardiovascular condition [facility] 2024 8:19am Reason for Visit Admit Date Smokes cigarettes May 06, 2025 8:19 am Suspected sleep apnea May 06, 2025 8: 19am Essential hypertension May 06, 2025 8 :19am GERD (gastroesophageal reflux disease) J [email or web address] 8:19am Mid back pain May 06, 2025 8:19 am Screening for depression May 06, 2025 8:19am Numbness and tingling May 06, 2025 8: 19am Screening for cardiovascular condition [facility] 2024 8:19am Quit smoking within past year May 06, 2025 8:19am Chief Complaint Admit Date May 06, 2025 8:19 am BLE; PARESTHESIA, ANESTHESIA June 02, 2025 6:39am BLE; PARESTHESIA, ANESTHESIA June 02, 2025 9:45am Chief Complaint Admit Date May 06, 2025 8:19 am BLE; PARESTHESIA, ANESTHESIA June 02, 2025 6:39am BLE; PARESTHESIA, ANESTHESIA June 02, 2025 9:45am LUMBAR SPINE June 14, 2025 7: 47am Room 2 June 14, 2025 8: 10am Additional Source Comments (unrecognized sect ion and content) No Status Records FoundNo Status Records FoundNo Status Records Found INFORMATION SOURCE (unrecogn ized section and content) DATE CREATED AUTHOR 04/23/2018 [facility] DATE CREATED AUTHOR AUTHOR'S ORGANIZ ATION 11/21/2024 [facility] DATE CREATED AUTHOR AUTHOR'S ORGANIZ ATION 07/06/2025 [facility] Care Teams (unrecognized sec tion and content) Team Status: Active Member Role Status Dates Dr. Marika Josue MD Primary Care Provider Active Team Status: Active Member Role Status Dates Dr. Marika Josue MD Primary Care Provider Active Start: November 19, 2024 Anjelica Wally Attending Provider Active Start: Benjie mathis 2024 [...] 2025 End: May 06, 2025 Team Status: Inactive Member Role/Relationship Status Dates Dr. Marika Josue MD Primary Care Provider Active Start: June 02, 2025 End: June 02, 2025 Dr. Marika Josue MD Attending Provider Active Start: June 02, 2025 End: June 02, 2025 Dr. Marika Josue MD Referring Provider Active Start: June 02, 2025 End: June 02, 2025 Team Status: Active Member Role/Relationship Status Dates Dr. Marika Josue MD Primary Care Provider Active Start: June 02, 2025 Dr. Marika Josue MD Referring Provider Active Start: June 02, 2025 Dr. Marika Josue MD Other Provider Active St art: June 02, 2025 Dr. Violet Roblero MD Attending Provider Active S tart: June 02, 2025 Team Status: Active Member Role/Relationship Status Dates Dr. Marika Josue MD Primary Care Provider Active Start: June 14, 2025 Dr. Marika Josue MD Referring Provider Active Start: June 14, 2025 ASUH Purcell Attending Provider Active Star t: June 14, 2025 Team Status: Inactive Member Role/Relationship Status Dates Dr. Marika Josue MD Primary Care Provider Active Start: June 14, 2025 End: June 14, 2025 Dr. Bernard Levi MD Attending Provider Active S tart: June 14, 2025 End: June 14, 2025 Team Status: Inactive Member Role/Relationship Status Dates Dr. Marika Josue MD Primary Care Provider Active Start: June 14, 2025 End: June 14, 2025 Dr. Marika Josue MD Referring Provider Active Start: June 14, 2025 End: June 14, 2025 ASHU Purcell Attending Provider Active Star t: June 14, 2025 End: June 14, 2025 Goals (unrecognized section and content) Goals may be documented in a n alternate sectionGoals may be documented in an alternate sectionGoals may be documented in an alternate sectionGoals may be documented in an alternate sectionGoals may be documented in an [...] BE BASED ON THE PRIMARY CLINICAL RECORDS. [facility] [employer] [facility]. provides no warranty or guarantee of the accuracy or completeness of information in this document.
== END | disposition home or self-care (01) ==
PROVIDERS: PCP Internal Medicine; Referring Provider Student in an Organized Health Care Education/Training Program; Visit Provider Student in an Organized Health Care Education/Training Program
DX: M54.16 Radiculopathy, lumbar region (principal); M51.379 Other intervertebral disc degeneration, lumbosacral region without mention of lumbar back pain or lower extremity pain
CPT/HCPCS: 72148